=== PATIENT | female | born 1975 | race Caucasian/White ===

== ENCOUNTER 2019-11-17 10:01 | Emergency (ER) | payer OTHER, MEDICAID, SELFPAY ==
[2019-11-17 10:19] VITALS: BP 148/87; PULSE 103; RESP 20; TEMP 37.8; O2SAT 100
--- NOTE | 2019-11-17 10:35 | ED.URI ---
HPI - URI/Sore Throat General Chief Complaint: Upper Respiratory Infection Stated Complaint: glands swollen/nose Source: patient and RN notes reviewed Mode of arrival: ambulatory Limitations: no limitations History of Present Illness HPI Narrative: Patient is a 44-year-old female who presents complaining of sore throat, fever and generalized body aches for over a week. Patient reports seeing PCP on 11/09 and swab for strep throat. Patient reports antibiotics were called in at that time but PCP called in a penicillin and she is allergic. She reports a few days later she got a prescription for a Z-Patel, but did not take as she was feeling better at that time. Patient reports throat pain of 6/10. Patient denies using other [id number] medications for relief. MD elicited complaint: fever and sore throat Pertinent past history: immunosuppression Related Data Home Medications Medication Instructions Recorded Confirmed aspirin [Adult Low Dose Aspirin] 81 mg PO DAILY 11/17/19 11/17/19 hydrocodone-acetaminophen 1 tablet Q4-6H 11/17/19 11/17/19 levothyroxine 50 mcg DAILY 11/17/19 11/17/19 lorazepam 0.5 mg BID 11/17/19 11/17/19 melatonin 10 mg DAILY 11/17/19 11/17/19 Allergies Allergy/AdvReac Type Severity Reaction Status Date / Time Penicillins Allergy Rash Verified 11/17/19 10:18 Review of Systems Review of Systems: Narrative: CONSTITUTIONAL: Reports fever, chills, or sweats. EYES: Denies visual changes, redness, or discharge. ENT: Denies rhinorrhea, congestion, reports sore throat. CARDIOVASCULAR: Denies chest pain, palpitations, or edema. RESPIRATORY: Denies cough or dyspnea. GASTROINTESTINAL: Denies abdominal pain, nausea, vomiting, or diarrhea. GENITOURINARY: Denies dysuria or hematuria. SKIN: Denies rash or itching. MUSCULOSKELETAL: Denies back pain, joint pain, or myalgia. NEUROLOGIC: Denies headache, numbness, dizziness, or weakness. PSYCHIATRIC: Denies anxiety or depression. FOR[facility]LY [facility] Past Medical History Medical History (Updated 11/17/19 @ 10:43 by TIM Garza) Fibromyalgia Lupus Pulmonary embolism Rheumatoid arthritis Surgical History Surgical History (Updated 11/17/19 @ 10:39 by TIM Garza) No pertinent past surgical history Social History Social History (Updated 11/17/19 @ 10:39 by TIM Garza) Smoking status: Never smoker Alcohol intake: current Alcohol use details: Socially Substance use: never Living arrangements: with family Gender identity (if verbalized by the patient): Female Exam Narrative: Exam Narrative: GENERAL: Well-appearing, well-nourished, and in no acute distress. HEAD: Normocephalic, atraumatic. EYES: EOMI. No redness or drainage. Conjunctiva are normal. ENT: Mucous membranes pink and moist. Small amount of erythema without warmth, tenderness or edema to tip of nose. Nares clear. No rhinorrhea. TMs normal bilaterally. Throat erythema and edema. Uvula midline. NECK: AROM. Supple. Bilateral cervical lymphadenopathy. CHEST: No respiratory distress. Clear to auscultation. HEART: Regular rate and rhythm. No murmur appreciated. Normal peripheral pulses. EXTREMITIES: Normal range of motion. No edema. SKIN: Warm, dry, no rash. NEURO: No focal deficits. Alert and oriented x3. Gait steady. PSYCH: Normal affect. No signs of depression or anxiety. Course Vital Signs Vital signs: Vital Signs Temperature 37.8 C H 11/17/19 10:19 Pulse Rate 103 H 11/17/19 10:19 Respiratory Rate 11/17/19 10:19 Blood Pressure 148/87 H 11/17/19 10:19 Pulse Oximetry 100 11/17/19 10:19 Temperature 37.8 C H 11/17/19 10:19 Pulse Rate 103 H 11/17/19 10:19 Respiratory Rate 11/17/19 10:19 Blood Pressure 148/87 H 11/17/19 10:19 Pulse Oximetry 100 11/17/19 10:19 MDM - URI/Sore Throat MDM Narrative Medical decision making narrative: Patient has positive strep. She reports she has a Z-Patel at home that she has not st
== END 2019-11-17 10:48 | disposition home or self-care (01) ==
PROVIDERS: Emergency Provider Nurse Practitioner; PCP Family Medicine
DX: J02.0 Streptococcal pharyngitis (principal); M79.7 Fibromyalgia; Z86.711 Personal history of pulmonary embolism; M06.9 Rheumatoid arthritis, unspecified
CPT/HCPCS: 87880; 99212; G0463

== ENCOUNTER 2019-11-30 09:10 | Outpatient (CLI) | payer OTHER, MEDICAID, SELFPAY ==
[2019-11-30 13:52] LABS: Parathyroid Intact 55.3 pg/mL (7.5-53.5)
[2019-12-03 04:21] LABS: Ionized Calcium 4.9 mg/dL (4.8-5.6)
== END 2019-11-30 09:11 | disposition home or self-care (01) ==
PROVIDERS: PCP Family Medicine; Visit Provider Internal Medicine Endocrinology, Diabetes & Metabolism
DX: E21.3 Hyperparathyroidism, unspecified (principal)
CPT/HCPCS: 36415; 82306; 82330; 83970

== ENCOUNTER 2019-12-04 09:54 | Outpatient (CLI) | payer OTHER, MEDICAID, SELFPAY ==
[2019-12-04 11:10] LABS: D Dimer 0.27 ug/mL (<0.48)
== END 2019-12-04 09:55 | disposition home or self-care (01) ==
LOC: ANHLAB 09:55
PROVIDERS: PCP Family Medicine; Visit Provider Internal Medicine Hematology & Oncology
DX: D68.61 Antiphospholipid syndrome (principal)
CPT/HCPCS: 36415; 85380

== ENCOUNTER 2019-12-11 14:16 | Outpatient (CLI) | payer OTHER, MEDICAID, SELFPAY ==
[2019-12-11 17:06] LABS: Free T4 Free Thyroxine 1.02 ng/mL (0.78-2.19)
[2019-12-15 05:38] LABS: Triiodothyronine T3 Free 2.6 pg/mL (2.3-4.2)
== END 2019-12-11 14:17 | disposition home or self-care (01) ==
LOC: ANHWCLAB 14:18
PROVIDERS: PCP Family Medicine; Visit Provider Internal Medicine Endocrinology, Diabetes & Metabolism
DX: E03.9 Hypothyroidism, unspecified (principal); E04.9 Nontoxic goiter, unspecified; E21.3 Hyperparathyroidism, unspecified
CPT/HCPCS: 36415; 84439; 84443; 84481

== ENCOUNTER 2019-12-16 18:35 | Emergency (ER) | payer OTHER, MEDICAID, SELFPAY ==
[2019-12-16 18:51] VITALS: BP 137/80; PULSE 110; RESP 20; TEMP 37.9; O2SAT 100
--- NOTE | 2019-12-16 18:51 | ED.URI ---
HPI - URI/Sore Throat General Chief Complaint: Upper Respiratory Infection Stated Complaint: sore throat Time Seen by Provider: 12/16/19 18:51 Source: patient and RN notes reviewed History of Present Illness HPI Narrative: Patient is a 44-year-old female presents the urgent care with complaints of sore throat. Patient had strep throat recently back in November and was originally prescribed azithromycin from her PCP, in which she did not take until she was diagnosed again at the urgent care. Patient states she then developed shingles. Patient states her symptoms started 2 days ago. Denies any known fever or vomiting. States that she had one episode of nausea that was relieved with crackers and soda. No other acute complaints. No acute distress noted. Patient read the plan of care. Related Data Home Medications Medication Instructions Recorded Confirmed aspirin 81 mg tablet,delayed 81 mg PO DAILY 08/31/19 12/04/19 release lorazepam 0.5 mg tablet 0.5 mg PO DAILY PRN 08/31/19 12/04/19 ondansetron HCl 4 mg tablet 4 mg PO Q8H PRN 08/31/19 12/04/19 hydrocodone-acetaminophen 1 tablet Q4-6H 11/17/19 11/17/19 lorazepam 0.5 mg BID 11/17/19 11/17/19 melatonin 10 mg DAILY 11/17/19 11/17/19 Allergies Allergy/AdvReac Type Severity Reaction Status Date / Time metoclopramide Allergy Mild Unknown Verified 12/16/19 19:01 propoxyphene Allergy Mild Unknown Verified 12/16/19 19:01 tramadol Allergy Mild Unknown Verified 12/16/19 19:01 Penicillins Allergy Unknown Unknown Verified 12/16/19 19:01 Review of Systems Review of Systems: Narrative: CONSTITUTIONAL: Denies fever, chills, or sweats. EYES: Denies visual changes, redness, or discharge. ENT: Reports of sore throat CARDIOVASCULAR: Denies chest pain, palpitations, or edema. RESPIRATORY: Denies cough or dyspnea. GASTROINTESTINAL: Denies abdominal pain, nausea, vomiting, or diarrhea. GENITOURINARY: Denies dysuria or hematuria. SKIN: Denies rash or itching. MUSCULOSKELETAL: Denies back pain, joint pain, or myalgia. NEUROLOGIC: Denies headache, numbness, or weakness. All other systems reviewed are negative, except as documented in HPI. FOR[facility]LY [facility] Social History Social History (System 12/05/19 @ 09:56 by Alicia Zepeda) Smoking status: Never smoker Alcohol intake: current Substance use: never Gender identity (if verbalized by the patient): Female Comments At the time of my signature, I reviewed and agree with the nursing past medical, surgical, social, and family history. There is no relevant family history pertinent to the patient complaint. Exam Narrative: Exam Narrative: GENERAL: This is a well-nourished, well-developed patient, in no apparent distress. HEAD: normocephalic, atraumatic. EYES: PERRL. Sclera clear/white. Vision is grossly intact. EARS: External ears normal, auditory canals clear and without drainage, TMs normal without perforation. Hearing grossly intact. NOSE: External nose normal with no obvious nasal discharge, nares without redness, no rhinorrhea. THROAT: Mucous membranes moist, mild erythema noted posterior oropharynx without exudate or ulceration. Moderate postnasal drainage. NECK: Neck supple, mild tender mild left submandibular lymphadenopathy CARDIOVASCULAR: Regular rate and rhythm without murmurs, gallops, or rubs. RESPIRATORY: Clear to auscultation. Breath sounds equal bilaterally. No wheezes, rales, or rhonchi. SKIN: Scab/healing area of past shingles noted to the tip of the right nare. Warm, intact with no suspicious lesions or rash, good texture and turgor. NEURO: awake, alert, and oriented to person, place and time. There were no obvious focal neurologic abnormalities. EXTREMITIES: No clubbing, cyanosis, or edema. Course Vital Signs Vital signs: Vital Signs Temperature 100.3 F H 12/16/19 18:51 Pulse Rate 110 H 12/16/19 18:51 Respiratory Rate 20 12/16/19 18:51 Blood Pressure 137/80 12/16/19 18:51 Pulse Oximetry 100 12/16/19
== END 2019-12-16 19:11 | disposition home or self-care (01) ==
PROVIDERS: Emergency Provider Nurse Practitioner Family; PCP Family Medicine
DX: J02.9 Acute pharyngitis, unspecified (principal)
CPT/HCPCS: 87081; 87880; 99213; G0463

== ENCOUNTER 2020-03-06 16:06 | Outpatient (CLI) | payer OTHER, MEDICAID, SELFPAY ==
[2020-03-06 16:43] LABS: Hematocrit 38.2 % (37.0-47.0); Hemoglobin 12.9 g/dL (12.0-15.0); Mean Corpuscular HGB Conc 33.8 g/dl (32-36); Mean Corpuscular Hemoglobin 27.6 pg (26-34); Mean Corpuscular Volume 81.8 fl (80-100); Mean Platelet Volume 10.6 fl (7.4-10.4); Platelet Count Result 171 k/mm3 (150-375); Red Blood Count 4.67 M/mm3 (4.2-5.4); Red Cell Distribution Width 12.2 % (11.5-14.5); White Blood Count 6.6 K/mm3 (4.5-10.0)
[2020-03-06 16:57] LABS: Alanine Aminotransferase 12 U/L (4-35); Albumin Level 4.5 g/dL (3.5-5.1); Alkaline Phosphatase 74 U/L (38-126); Amylase 93 U/L (30-110); Aspartate Amino Transferase 19 U/L (14-36); Bilirubin,Total 0.3 mg/dL (0.2-1.3)
== END 2020-03-06 16:07 | disposition home or self-care (01) ==
PROVIDERS: PCP Family Medicine; Referring Provider Family Medicine; Visit Provider Internal Medicine Gastroenterology
DX: R10.11 Right upper quadrant pain (principal)
CPT/HCPCS: 36415; 80076; 82150; 85027

== ENCOUNTER 2021-02-12 14:52 | Outpatient (CLI) | payer OTHER, MEDICAID, SELFPAY ==
--- NOTE | ~2021-02-12 | XR_ITS ---
EXAMINATION: XR cervical spine 4-5V DATE: 02/12/2021 15:17 INDICATION: Posterior neck pain. Fibromyalgia. TECHNIQUE: 4 views of cervical spine were obtained. COMPARISON: None. FINDINGS: There is 3 degrees levocurvature of cervicothoracic spine. Vertebral body heights and inter vertebral disc heights are normal. The facet joints are unremarkable. No central canal stenosis or pr evertebral soft tissue swelling. There are surgical clips in the neck. IMPRESSION: 1. No etiology for the patient's symptoms. Reviewed, dictated and finalized at location A.
== END 2021-02-12 14:53 | disposition home or self-care (01) ==
LOC: ANHIMG 14:59
PROVIDERS: PCP Family Medicine; Visit Provider Nurse Practitioner
DX: M54.2 Cervicalgia (principal)
CPT/HCPCS: 72050

== ENCOUNTER 2021-03-03 09:40 | Outpatient (RCR) | payer OTHER, MEDICAID, SELFPAY ==
--- NOTE | 2021-03-03 11:57 | PTOPEVAL ---
Thank you for referring Kandace Ybarra to [facility].? The patient is scheduled to be seen for therapy? 1 x/week for 5 weeks. Please review, sign, date and return this plan of care MORGAN. I agree with and certify that the following plan of care is medically necessary. Referring Physician Date Attending Provider: Prakash Velasquez MD Diagnosis RA Onset 2006 Additional Evaluation Detail Pt reports she had a fall over the weekend catching herself with the right UE. Subjective Information She reports she has arm and Query Text:As Reported By Patient/ leg numbness with all Family activities. She has numbness with prolonged sitting in the car unless she is sitting on a gel cushion. She is limited to sitting in the car less than 1 hour due to UE/LE numbness. She also c/o intermittent dizziness with activities. She also c/o neck pain with all activities. 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 She is able to cook a small meal if less than 30 min due to pain and fatigue. She is unable to work due to pain. She does not lift objects due to pain and limitations. She takes an epson salt bath to loosen up. She is unable to tolerate stretches due to pain . She uses heat and medication to help with pain. Diagnostic Tests X-Rays For This Problem Yes: neck, no impairment Pain Assessment Self Report Pain Assessment Generalized Reported Pain Level 8 Pain Description Aching,Numbness,Sharp,Soreness ,Tightness Pain Frequency Chronic,Continuous Lowest Pain Intensity 5 Greatest Pain Intensity 10 Pain Aggravating Factors ADL's,Bending,Inspiration, Prolonged Position,Walking, Weight Bearing/Standing Pain Behaviors Anxious Pain Score Pain Score 8: Self Report Cervical and Lumbar ROM Lumbar ROM Lumbar Flexion Active Ankle Query Text:Hands to: Lateral Flexion distal thigh Query Text:Active Hands to: Lumbar Comments
--- NOTE | 2021-03-13 12:53 | PCPTNOTE ---
Patient called & cancelled all scheduled appointment this date stating MD would like patient to stop PT at this time. Notified therapist.
--- NOTE | 2021-03-28 08:35 | PCPTNOTE ---
Admitting Provider: Attending Provider: Prakash Velasquez MD Patient:Kandace Ybarra Date of :1975 Discharge Note Patient has not returned for any further treatments since 03/03/2021 per doctor request. Therefore she will be discharged at this time. Patient?s initial visit was on 03/03/2021 for a total of 1 visits. The goals have been not met at this time. Thank you for referring this patient to [facility]. Please review, sign, date and return this discharge summary MORGAN. I have been updated about the patient's current status and I agree with discharge from the above service at this time. Referring Physician Date
== END 2021-03-31 08:51 | disposition home or self-care (01) ==
LOC: ANHPT 09:40
PROVIDERS: PCP Family Medicine; Visit Provider Family Medicine
DX: M79.7 Fibromyalgia (principal)
CPT/HCPCS: 97110; 97163

== ENCOUNTER 2021-03-03 11:21 | Emergency (ER) | payer OTHER, MEDICAID, SELFPAY ==
--- NOTE | ~2021-03-03 | XR_ITS ---
EXAMINATION: XR forearm RT 2V, XR wrist RT w scaphoid DATE: 03/03/2021 11:55 INDICATION: Pain and bruising at the right wrist and distal forearm post fall TECHNIQUE: 1. AP an lateral views of the left forearm were obtained. 2. Dorsal palmar, lateral, oblique and navicular views of the right wrist were obtained. COMPARISON: none FINDINGS: Bone alignment is normal from the right elbow through the wrist and visualized hand. No fracture. Min imal to mild osteoarthritis at the midcarpal, triscaphe and first carpometacarpal joints. Soft tissue s are unremarkable. No right elbow joint effusion. IMPRESSION: 1. 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 No acute osseous abnormality at the right wris t or forearm. Reviewed, dictated and finalized at location A. IMPRESSION: 1. 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 No acute osseous abnorma lity at the right wrist or forearm.
[2021-03-03 11:30] VITALS: BP 144/93; PULSE 93; RESP 16; TEMP 37.1; O2SAT 100
--- NOTE | 2021-03-03 11:33 | ED.UPPEXIN ---
HPI - Extremity Injury (Upper) General Chief Complaint: Extremity Injury, Upper Stated Complaint: Right Arm Pain Time Seen by Provider: 03/03/21 11:33 Source: patient and RN notes reviewed Mode of arrival: ambulatory Limitations: no limitations History of Present Illness HPI narrative: 45-year-old female presents to the [facility] with complaints of right Wrist pain that radiates to the shoulder, elbow and fingers. States that she fell yesterday landing on her wrist. Patient reports that she frequently has numbness in the leg and it gives out and she falls. Bruise noted to the right arm volar/ulnar distal aspect. Has full range of motion. No snuffbox tenderness. Sensation intact in all 5 fingers. Capillary refill under 2 seconds in all 5 fingers. 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 Related Data Home Medications Medication Instructions Recorded Confirmed lorazepam 0.5 mg tablet 0.5 mg PO BID PRN 08/31/19 03/03/21 hydrocodone-acetaminophen 1 tablet PO QID PRN 11/17/19 03/03/21 melatonin 10 mg DAILY 11/17/19 03/03/21 zolpidem 5 mg tablet 5 mg PO HS PRN 12/05/20 03/03/21 aspirin 81 mg PO DAILY 03/03/21 03/03/21 simvastatin 10 mg PO DAILY 03/03/21 03/03/21 Allergies Allergy/AdvReac Type Severity Reaction Status Date / Time metoclopramide Allergy Mild Anxiety Verified 03/03/21 11:41 propoxyphene Allergy Mild Unknown Verified 03/03/21 11:41 tramadol Allergy Mild Unknown Verified 03/03/21 11:41 Penicillins Allergy Unknown Rash Verified 03/03/21 11:41 Review of Systems Review of Systems: All systems reviewed & are unremarkable except as noted in HPI and below Constitutional: Constitutional: Reports no additional constitutional complaints Eyes: Eyes: Reports no additional eye complaints ENT: Reports system reviewed and no additional complaints, except as documented Cardiovascular: Cardiovascular: Reports no additional cardiovascular complaints and Denies chest pain Respiratory: Respiratory: Reports no additional respiratory complaints, Denies cough, Denies dyspnea and Denies wheezing Musculoskeletal: Musculoskeletal: Reports arthralgias (Right wrist) and Reports joint swelling (Right breast) Integumentary/Breasts: Comments: Bruising volar aspect distal right arm Neurologic: Reports system reviewed and no additional complaints, except as documented, Denies dizziness, Denies syncope, Denies headache(s), Denies focal weakness and Denies numbness Psychiatric: Psychiatric: Reports no additional psychiatric complaints PMFSH Past Medical History Medical History PAOLA positive Anxiety Arthritis Back pain Blood disorder Blood transfusion as the cause of abnormal reaction of patient, or of later complication, without misadventure at the time of procedure Encounter for screening for other viral diseases Hepatitis C antibody positive in blood Lupus Migraines Pulmonary embolism Pulmonary embolism and infarction, iatrogenic Rheumatoid arthritis Thyroid disease Surgical History Surgical History H/O thyroidectomy History of cholecystectomy No pertinent past surgical history Family History Family History Other ADD (attention deficit disorder) Anxiety Arthritis COPD (chronic obstructive pulmonary disease) Cerebrovascular accident Hypercalcemia Hypertension Migraines Seizure disorder Shortness of breath Social History Social History Smoking status: Never smoker Alcohol intake: current Substance use: never Gender identity (if verbalized by the patient): Female Exam Const: General: healthy appearing, no acute distress and alert Nutritional Appearance: well nourished Orientation/consciousness: patient oriented x3 Limitations: no limitations HENMT: Head: normal to inspection Chest: Chest palpation & inspection: normal
== END 2021-03-03 12:29 | disposition home or self-care (01) ==
PROVIDERS: Emergency Provider Nurse Practitioner; PCP Family Medicine
DX: S60.211A Contusion of right wrist, initial encounter (principal); W19.XXXA Unspecified fall, initial encounter; F41.9 Anxiety disorder, unspecified; M19.90 Unspecified osteoarthritis, unspecified site; Z86.711 Personal history of pulmonary embolism; M06.9 Rheumatoid arthritis, unspecified; E89.0 Postprocedural hypothyroidism; Z79.82 Long term (current) use of aspirin
CPT/HCPCS: 73090; 73110; 99213; G0463

== ENCOUNTER 2021-06-19 13:14 | Outpatient (CLI) | payer OTHER, MEDICAID, SELFPAY ==
--- NOTE | ~2021-06-19 | US_ITS ---
EXAMINATION: US venous doppler LE RT DATE: 06/19/2021 13:42 INDICATION: Right lower limb pain and swelling TECHNIQUE: Elam scale images without and with compression and Doppler images of the right lower extre mity veins were obtained. COMPARISON: None FINDINGS: The right common femoral vein, profunda femoral vein, femoral vein, popliteal vein, peronea l trunk, posterior tibial veins, and greater saphenous vein are patent. IMPRESSION: 1. Patent right lower extremity veins. No evidence of deep venous thrombosis. Reviewed, dictated and finalized at location B.
== END 2021-06-19 13:15 | disposition home or self-care (01) ==
LOC: ANHIMG 13:16
PROVIDERS: PCP Family Medicine; Visit Provider Internal Medicine Hematology & Oncology
DX: M79.89 Other specified soft tissue disorders (principal)
CPT/HCPCS: 93971

== ENCOUNTER 2021-08-13 18:09 | Outpatient (CLI) | payer OTHER, MEDICAID, SELFPAY ==
--- NOTE | ~2021-08-13 | XR_ITS ---
XR lumbar spine min 4V DATE: 08/13/2021 18:44 INDICATION: Lower back pain radiating down right leg for 6 months. No known injury. TECHNIQUE: AP, lateral, bilateral oblique views and coned lateral lumbosacral views COMPARISON: 08/30/2008 lumbar spine FINDINGS: There is minimal degenerative spurring of the lumbar spine. Lumbar and lumbosacral interspa steven are well preserved. No fracture or bone destruction, spondylolysis or spondylolisthesis. The lumbar pedicles are intact. The sacroiliac joints appear normal. Status post cholecystectomy. IMPRESSION: Minimal degenerative spurring of the lumbar spine Reviewed, dictated and finalized at location A.
== END 2021-08-13 18:10 | disposition home or self-care (01) ==
PROVIDERS: PCP Family Medicine
DX: M54.9 Dorsalgia, unspecified (principal)
CPT/HCPCS: 72110

== ENCOUNTER 2022-01-09 14:47 | Outpatient (CLI) | payer OTHER, MEDICAID, SELFPAY ==
--- NOTE | ~2022-01-09 | CT_ITS ---
EXAMINATION: CT abdomen wo con EXAM DATE: 01/09/2022 15:13 INDICATION: RUQ abdominal pain. TECHNIQUE: Spiral CT of the abdomen was performed without contrast. Axial, coronal and sagittal cristian ges of the abdomen were reviewed. The dose-length product (DLP) for this examination was 264.17 mGy- cm. The exposure was tailored according to patient size (auto mA exposure control), and iterative re construction (ASIR) was used as additional dose reduction technique. There is no prior study for lloyd francisco. FINDINGS: The liver, spleen, adrenal glands and pancreas are unremarkable. There are cholecystectomy clips. There is no nephrolithiasis or hydronephrosis. There is no retroperitoneal lymphadenopath y. The stomach and small bowel are unremarkable. There is expected amount of colonic stool. No f ree intraperitoneal gas. The heart is normal in size. There are no pericardial or pleural effusion s. The lung bases are unremarkable. There are no osteoblastic or osteolytic lesions identified. IMPRESSION: No acute intra-abdominal findings. Reviewed, dictated and finalized at location B.
== END 2022-01-09 14:48 | disposition home or self-care (01) ==
LOC: ANHIMG 14:49
PROVIDERS: PCP Family Medicine; Visit Provider Nurse Practitioner Adult Health
DX: R10.11 Right upper quadrant pain (principal)
CPT/HCPCS: 74150

== ENCOUNTER 2022-03-02 11:37 | Outpatient (CLI) | payer OTHER, MEDICAID, SELFPAY ==
[2022-03-02 12:01] LABS: Hematocrit 38.1 % (37.0-47.0); Hemoglobin 12.6 g/dL (12.0-15.0); Mean Corpuscular HGB Conc 33.1 g/dl (32-36); Mean Corpuscular Hemoglobin 27.6 pg (26-34); Mean Corpuscular Volume 83.6 fl (80-100); Mean Platelet Volume 10.2 fl (7.4-10.4); Platelet Count Result 173 k/mm3 (150-375); Red Blood Count 4.56 M/mm3 (4.2-5.4); Red Cell Distribution Width 12.3 % (11.5-14.5); White Blood Count 5.5 K/mm3 (4.5-10.0)
[2022-03-02 12:05] LABS: Blood Urea Nitrogen 16 mg/dL (8-26); Carbon Dioxide 24 mmol/L (22-30); Chloride 106 mmol/L (98-109); Estimated Glomerular Filt Rate > 60; Glucose 109 mg/dL (70-105); Ionized Calcium (POC) 1.21 mmol/L (1.11-1.31); Potassium 3.9 mmol/L (3.5-4.9); Sodium 140 mmol/L (138-146)
[2022-03-02 12:39] LABS: Iron 49 ug/dL (37-170)
[2022-03-02 12:48] LABS: Percent Iron Saturation 13 % (20-50)
== END 2022-03-02 11:38 | disposition home or self-care (01) ==
PROVIDERS: PCP Family Medicine; Visit Provider Internal Medicine Hematology & Oncology
DX: D50.9 Iron deficiency anemia, unspecified (principal)
CPT/HCPCS: 36415; 80047; 82728; 83540; 83550; 85027

== ENCOUNTER 2022-03-03 15:20 | Outpatient (CLI) | payer OTHER, MEDICAID, SELFPAY ==
[2022-03-03 16:54] LABS: Free T4 Free Thyroxine 1.21 ng/mL (0.78-2.19); Vitamin D 25 Hydroxy 45.5 ng/mL
== END 2022-03-03 15:21 | disposition home or self-care (01) ==
LOC: ANHWCLAB 15:22
PROVIDERS: PCP Family Medicine; Visit Provider Internal Medicine Endocrinology, Diabetes & Metabolism
DX: E03.9 Hypothyroidism, unspecified (principal); R79.89 Other specified abnormal findings of blood chemistry
CPT/HCPCS: 36415; 82306; 84439; 84443

== ENCOUNTER → 2022-03-10 14:18 | Outpatient (CLI) | payer OTHER, MEDICAID, SELFPAY ==
--- NOTE | ~2022-03-10 | CT_ITS ---
EXAMINATION: CT cervical spine wo con DATE: 03/10/2022 14:41 INDICATION: Neck pain. Numbness and tingling in the arms and legs. Fibromyalgia. TECHNIQUE: Computed tomography (CT) of the cervical spine was performed without intravenous contrast. Automated exposure control and iterative reconstruction technique were employed. The dose-length pro duct was 238.04 mGy-cm. COMPARISON: Cervical spine radiographs 02/12/2021 FINDINGS: There is kyphosis of lower cervical spine. There is 6 degrees levocurvature of cervical spi ne. Vertebral body heights are normal. There is mildly decreased disc height at C5-C6 and C6-C7. The following disc levels are specifically discussed: C2-C3: There is no uncovertebral joint osteoarthritis. There is mild bilateral facet joint osteoarthr itis. There is no neural foraminal stenosis. There is no central canal stenosis. C3-C4: There is mild bilateral uncovertebral joint osteoarthritis. There is mild right and moderate l eft facet joint osteoarthritis. There is mild left neural foraminal stenosis. There is mild central c anal stenosis. C4-C5: There is no uncovertebral joint osteoarthritis. There is no facet joint osteoarthritis. There is no neural foraminal stenosis. There is no central canal stenosis. C5-C6: There is no uncovertebral joint osteoarthritis. There is no facet joint osteoarthritis. There is no neural foraminal stenosis. There is no central canal stenosis. C6-C7: There is mild right and moderate left uncovertebral joint osteoarthritis. There is mild left f acet joint osteoarthritis. There is no neural foraminal stenosis. There is mild central canal stenosi s. C7-T1: There is no uncovertebral joint osteoarthritis. There is mild bilateral facet joint osteoarthr itis. There is no neural foraminal stenosis. There is no central canal stenosis. IMPRESSION: 1. Mild cervical spondylosis. Reviewed, dictated and finalized at location A.
--- NOTE | ~2022-03-10 | CT_ITS ---
EXAMINATION: CT lumbar spine wo con DATE: 03/10/2022 14:41 INDICATION: Low back pain. Fibromyalgia. TECHNIQUE: Computed tomography (CT) of the lumbar spine was performed without intravenous contrast. A utomated exposure control and iterative reconstruction technique were employed. The dose-length produ ct was 741.63 mGy-cm. COMPARISON: None FINDINGS: There is 6 degrees levocurvature of lumbar spine. Vertebral body heights are normal. There is mildly decreased disc height at L3-L4 and L4-L5. The following disc levels are specifically discus sed: L1-L2: The disc does not extend beyond the endplate margin. There is mild bilateral facet joint osteo arthritis. There is no neural foraminal stenosis. There is no central canal stenosis. L2-L3: The disc is mildly bulging. There is moderate right and mild left facet joint osteoarthritis. There is mild bilateral neural foraminal stenosis. There is no central canal stenosis. L3-L4: The disc is bulging. There is moderate right and mild left facet joint osteoarthritis. There i s mild bilateral neural foraminal stenosis. There is mild central canal stenosis. L4-L5: The disc is bulging. There is mild bilateral facet joint osteoarthritis. There is mild bilater al neural foraminal stenosis. There is mild central canal stenosis. L5-S1: The disc does not extend beyond the endplate margin. There is moderate bilateral facet joint o steoarthritis. There is no neural foraminal stenosis. There is no central canal stenosis. IMPRESSION: 1. Mild lumbar spondylosis. Reviewed, dictated and finalized at location A. IMPRESSION: 1. Mild lumbar spondylosis.
== END ==
PROVIDERS: PCP Nurse Practitioner Adult Health; Visit Provider Nurse Practitioner Adult Health
DX: M79.7 Fibromyalgia (principal); M47.896 Other spondylosis, lumbar region; M47.892 Other spondylosis, cervical region
CPT/HCPCS: 72125; 72131

== ENCOUNTER 2023-08-18 10:22 | Emergency (ER) | payer OTHER, MEDICAID, SELFPAY ==
--- NOTE | ~2023-08-18 | XR_ITS ---
EXAMINATION: XR shoulder LT min 2V INDICATION: Left shoulder pain after fall TECHNIQUE: Four views of the left shoulder are submitted. COMPARISON: None FINDINGS: Normal alignment. No fracture. Glenohumeral and acromioclavicular joint spaces are normal. Surgical clips in the left neck may reflect left hemithyroidectomy. A bone island is noted in the hum eral head. IMPRESSION: 1. No acute osseous abnormality. Reviewed, dictated and finalized at location B. 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
--- NOTE | 2023-08-18 10:35 | ED.UPPEXIN ---
HPI - Extremity Injury (Upper) General Chief Complaint: Extremity Injury, Upper Stated Complaint: fall, lt arm injury Time Seen by Provider: 08/18/23 10:35 Source: patient Mode of arrival: ambulatory Limitations: no limitations History of Present Illness HPI narrative: Kandace is a 48-year-old female patient presenting to the clinic today with complaints of left shoulder pain/injury after falling. She reports she fell when trying to sit down into a chair and hit her shoulder on the armrest of the chair. She has also reported off and on pain to the lateral elbow. States that this pain in the lateral elbow has been going off and on and is having numbness and sharp pain going down her arm. She denies any neck injury or hitting her head. She denies any loss of consciousness. Related Data Home Medications Medication Instructions Recorded Confirmed lorazepam 0.5 mg tablet (Ativan) 0.5 mg PO BID PRN Anxiety 08/31/19 08/18/23 hydrocodone 7.5 mg-acetaminophen 1 tablet PO QID PRN Pain 11/17/19 08/18/23 325 mg tablet aspirin 81 mg tablet 81 mg PO DAILY 03/03/21 08/18/23 duloxetine 20 mg capsule,delayed 20 mg PO DAILY 03/03/22 08/18/23 release (Cymbalta) ondansetron HCl 4 mg tablet 4 mg PO Q6H 03/03/22 08/18/23 metoprolol succinate 25 mg 25 mg PO DIRECTED 08/18/23 08/18/23 tablet,extended release 24 hr Allergies Allergy/AdvReac Type Severity Reaction Status Date / Time metoclopramide Allergy Mild Anxiety Verified 03/03/22 14:41 propoxyphene Allergy Mild Unknown Verified 03/03/22 14:41 tramadol Allergy Mild Unknown Verified 03/03/22 14:41 Penicillins Allergy Unknown Rash Verified 03/03/22 14:41 Review of Systems Review of Systems: Pertinent positives per HPI. Patient denies any fever, chills, rash, headache, visual changes, dizziness, cough, runny nose, sore throat, shortness of breath, chest pain, palpitations, nausea, vomiting, diarrhea, constipation, abdominal pain, or any urinary issues. REPLACED BY [facility] Past Medical History Medical History PAOLA positive Anxiety Arthritis Back pain Blood disorder Blood transfusion as the cause of abnormal reaction of patient, or of later complication, without misadventure at the time of procedure Encounter for screening for other viral diseases Hepatitis C antibody positive in blood Lupus Migraines Pulmonary embolism Pulmonary embolism and infarction, iatrogenic Rheumatoid arthritis Thyroid disease Surgical History Surgical History H/O thyroidectomy History of cholecystectomy No pertinent past surgical history Family History Family History Other ADD (attention deficit disorder) Anxiety Arthritis COPD (chronic obstructive pulmonary disease) Cerebrovascular accident Hypercalcemia Hypertension Migraines Seizure disorder Shortness of breath Social History Social History Smoking status: Never smoker Alcohol intake: current Alcohol use details: Socially Substance use: never Living arrangements: with family Gender identity (if verbalized by the patient): Female Comments At the time of my signature, I reviewed and agree with the nursing past medical, surgical, social, and family history. There is no relevant family history pertinent to the patient complaint. Exam Narrative: General: Well-developed, well nourished, in no apparent distress Head: Normocephalic, atraumatic. Cardio: Regular rate and rhythm, s1 and s2 normal, no murmur appreciated. Resp: Clear to auscultation bilaterally, no rhonchi, rales, wheezing or rubs. Musculoskeletal: No deformity, tender to palpation over the lateral epicondyle and the posterior shoulder, grossly normal range of motion, positive Tinel's over the lateral epicondyle, muscle strength
[2023-08-18 10:39] VITALS: BP 154/90; PULSE 105; RESP 16; TEMP 36.4; O2SAT 100
== END 2023-08-18 11:27 | disposition home or self-care (01) ==
PROVIDERS: Emergency Provider Nurse Practitioner Family; PCP Family Medicine
DX: M77.12 Lateral epicondylitis, left elbow (principal); S40.012A Contusion of left shoulder, initial encounter; W19.XXXA Unspecified fall, initial encounter; Z79.82 Long term (current) use of aspirin; F41.9 Anxiety disorder, unspecified; M19.90 Unspecified osteoarthritis, unspecified site; Z86.711 Personal history of pulmonary embolism; M06.9 Rheumatoid arthritis, unspecified; E07.9 Disorder of thyroid, unspecified; M32.9 Systemic lupus erythematosus, unspecified
CPT/HCPCS: 73030; 99213; G0463

== ENCOUNTER 2023-08-31 12:19 | Outpatient (CLI) | payer OTHER, MEDICAID, SELFPAY ==
[2023-08-31 12:42] LABS: Basophils Percent Auto 0.8 % (0.2-1.2); Eosinophils Absolute Auto 0.1 K/mm3 (0-0.3); Eosinophils Percent Auto 2.5 % (0-4.4); Hematocrit 36.3 % (37.0-47.0); Hemoglobin 11.9 g/dL (12.0-15.0); Immature Granulocyte Absolute 0.01 K/mm3 (0.00-0.031); Immature Granulocyte Percent A 0.2 % (0-0.5); Lymphocytes Absolute Auto 1.29 K/mm3 (0.9-3.2); Lymphocytes Percent Auto 24.4 % (18.3-44.2); Mean Corpuscular HGB Conc 32.8 g/dl (32-36); Mean Corpuscular Hemoglobin 26.6 pg (26-34); Mean Platelet Volume 9.2 fl (7.4-10.4); Monocytes Absolute Auto 0.4 K/mm3 (0.1-0.6); Monocytes Percent Auto 7.6 % (2.6-8.5); Neutrophils Absolute Auto 3.4 K/mm3 (1.3-6.7); Neutrophils Percent Auto 64.5 % (45.5-73.1); Platelet Count Result 174 k/mm3 (150-375); Red Blood Count 4.48 M/mm3 (4.2-5.4); Red Cell Distribution Width 12.9 % (11.5-14.5); White Blood Count 5.3 K/mm3 (4.5-10.0)
[2023-08-31 17:07] LABS: Alanine Aminotransferase 14 U/L (6-35); Albumin Level 4.2 g/dL (3.5-5.1); Alkaline Phosphatase 59 U/L (38-126); Anion Gap 9 mmol/L (8-16); Aspartate Amino Transferase 19 U/L (14-36); Bilirubin,Total 0.4 mg/dL (0.2-1.3); Blood Urea Nitrogen 20 mg/dL (7-17); Carbon Dioxide 24 mmol/L (22-30); Chloride 105 mmol/L (98-107); Estimated Glomerular Filt Rate > 60; Glucose 91 mg/dL (65-110); Partial Thromboplastin Time 37.9 SECONDS (22.3-36.8); Potassium 4.2 mmol/L (3.4-5.0); Prothrombin Time 13.2 Seconds (11.1-14.7); Sodium 138 mmol/L (137-145)
== END 2023-08-31 12:20 | disposition home or self-care (01) ==
PROVIDERS: PCP Family Medicine; Visit Provider Internal Medicine Hematology & Oncology
DX: D50.9 Iron deficiency anemia, unspecified (principal)
CPT/HCPCS: 36415; 80053; 85025; 85610; 85730

== ENCOUNTER 2023-10-22 13:56 | Emergency (ER) | payer OTHER, MEDICAID, SELFPAY ==
--- NOTE | ~2023-10-22 | XR_ITS ---
XR chest 2V DATE: 10/22/2023 14:30 INDICATION: Productive cough, congestion, fever TECHNIQUE: 2 views COMPARISON: None FINDINGS: Normal heart size. No hilar or mediastinal enlargement. No pulmonary infiltrate or consol idation, pulmonary vascular congestion or pleural effusion or pneumothorax. Surgical clips, right upper quadrant, likely due to cholecystectomy. IMPRESSION: No active cardiopulmonary disease Status post cholecystectomy Reviewed, dictated and finalized at location B. 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
[2023-10-22 14:07] VITALS: BP 175/105; PULSE 130; RESP 16; TEMP 36.9; O2SAT 100
--- NOTE | 2023-10-22 14:07 | ED.URI ---
HPI - URI/Sore Throat General Chief Complaint: Upper Respiratory Infection Stated Complaint: Sinus Infection, Bloody Phlegm, Earache, Neck Pain Time Seen by Provider: 10/22/23 14:07 Source: patient, RN notes reviewed and old records reviewed Mode of arrival: ambulatory Limitations: no limitations History of Present Illness HPI Narrative: 48-year-old female presents to the [facility] with complaints of sinus congestion, right ear pain, cough and chest congestion for 4 days. Has not taken any cold medication Has a history of chronic pain. Reports neck and right pain, being treated outpatient. Onset (ago): day(s) (3-4) Related Data Home Medications Medication Instructions Recorded Confirmed lorazepam 0.5 mg tablet (Ativan) 0.5 mg PO BID PRN Anxiety 08/31/19 10/22/23 hydrocodone 7.5 mg-acetaminophen 1 tablet PO QID PRN Pain 11/17/19 10/22/23 325 mg tablet aspirin 81 mg tablet 81 mg PO DAILY 03/03/21 10/22/23 duloxetine 20 mg capsule,delayed 20 mg PO DAILY 03/03/22 10/22/23 release (Cymbalta) ondansetron HCl 4 mg tablet 4 mg PO Q6H 03/03/22 10/22/23 metoprolol succinate 25 mg 25 mg PO DIRECTED 08/18/23 10/22/23 tablet,extended release 24 hr gabapentin 300 mg capsule 300 mg PO BID 10/22/23 10/22/23 Allergies Allergy/AdvReac Type Severity Reaction Status Date / Time metoclopramide AdvReac Mild Anxiety Verified 10/22/23 14:06 Penicillins AdvReac Mild Rash Verified 10/22/23 14:06 propoxyphene AdvReac Mild Unknown Verified 10/22/23 14:06 tramadol AdvReac Mild Unknown Verified 10/22/23 14:06 Review of Systems Review of Systems: All systems reviewed & are unremarkable except as noted in HPI and below Constitutional: Constitutional: Reports no additional constitutional complaints Eyes: Eyes: Reports no additional eye complaints ENT: Reports as per HPI, Reports otalgia and Reports nasal congestion Cardiovascular: Cardiovascular: Reports no additional cardiovascular complaints, Denies chest pain and Denies dyspnea Respiratory: Respiratory: Reports as per HPI, Reports chest congestion, Denies cough and Denies dyspnea Gastrointestinal: Gastrointestinal: Reports no additional gastrointestinal complaints, Denies abdominal pain, Denies nausea and Denies vomiting Musculoskeletal: Musculoskeletal: Reports no additional musculoskeletal complaints Integumentary/Breasts: Skin/Breast: Reports system reviewed and no additional complaints, except as docu Neurologic: Reports system reviewed and no additional complaints, except as documented Psychiatric: Psychiatric: Reports no additional psychiatric complaints Allergic/Immunologic: Allergic/Immunologic: Reports no additional allergic/immunologic complaints PMFSH Past Medical History Medical History PAOLA positive Anxiety Arthritis Back pain Blood disorder Blood transfusion as the cause of abnormal reaction of patient, or of later complication, without misadventure at the time of procedure Encounter for screening for other viral diseases Hepatitis C antibody positive in blood Lupus Migraines Pulmonary embolism Pulmonary embolism and infarction, iatrogenic Rheumatoid arthritis Thyroid disease Surgical History Surgical History H/O thyroidectomy History of cholecystectomy No pertinent past surgical history Family History Family History Other ADD (attention deficit disorder) Anxiety Arthritis COPD (chronic obstructive pulmonary disease) Cerebrovascular accident Hypercalcemia Hypertension Migraines Seizure disorder Shortness of breath Social History Social History Smoking status: Never smoker Alcohol intake: current Alcohol use details: Socially Substance use: never Living arrangements: with family Gender identity (if verbal
[2023-10-22 14:10] VITALS: BP 175/105; PULSE 130; RESP 16; TEMP 36.9; O2SAT 100
== END 2023-10-22 14:55 | disposition home or self-care (01) ==
PROVIDERS: Emergency Provider Nurse Practitioner; PCP Family Medicine
DX: J06.9 Acute upper respiratory infection, unspecified (principal); Z79.899 Other long term (current) drug therapy; Z79.82 Long term (current) use of aspirin; Z79.891 Long term (current) use of opiate analgesic; Z20.822 Contact with and (suspected) exposure to COVID-19
CPT/HCPCS: 71046; 87081; 87426; 87804; 87880; 99213; G0463

== ENCOUNTER 2024-06-29 09:58 | Outpatient (CLI) | payer OTHER, MEDICAID, SELFPAY ==
[2024-06-29 10:20] LABS: Basophils Absolute Auto 0.1 K/mm3 (0.0-0.1); Basophils Percent Auto 0.8 % (0.2-1.2); Eosinophils Absolute Auto 0.1 K/mm3 (0-0.3); Eosinophils Percent Auto 2.2 % (0-4.4); Hematocrit 35.7 % (37.0-47.0); Hemoglobin 11.6 g/dL (12.0-15.0); Immature Granulocyte Absolute 0.02 K/mm3 (0.00-0.031); Immature Granulocyte Percent A 0.3 % (0-0.5); Lymphocytes Absolute Auto 1.17 K/mm3 (0.9-3.2); Lymphocytes Percent Auto 19.7 % (18.3-44.2); Mean Corpuscular HGB Conc 32.5 g/dl (32-36); Mean Corpuscular Hemoglobin 26.7 pg (26-34); Mean Corpuscular Volume 82.1 fl (80-100); Mean Platelet Volume 9.9 fl (7.4-10.4); Monocytes Absolute Auto 0.4 K/mm3 (0.1-0.6); Monocytes Percent Auto 6.6 % (2.6-8.5); Neutrophils Absolute Auto 4.2 K/mm3 (1.3-6.7); Neutrophils Percent Auto 70.4 % (45.5-73.1); Platelet Count Result 179 k/mm3 (150-375); Red Blood Count 4.35 M/mm3 (4.2-5.4); Red Cell Distribution Width 12.9 % (11.5-14.5)
[2024-06-29 13:42] LABS: Alanine Aminotransferase 21 U/L (6-35); Albumin Level 4.1 g/dL (3.5-5.1); Alkaline Phosphatase 68 U/L (38-126); Anion Gap 9 mmol/L (4-12); Aspartate Amino Transferase 27 U/L (14-36); Bilirubin,Total 0.2 mg/dL (0.2-1.3); Blood Urea Nitrogen 22 mg/dL (7-17); Calcium 8.7 mg/dL (8.4-10.2); Carbon Dioxide 23 mmol/L (22-30); Chloride 98 mmol/L (98-107); Estimated Glomerular Filt Rate > 60; Glucose 121 mg/dL (65-110); Potassium 3.8 mmol/L (3.4-5.0); Sodium 130 mmol/L (137-145)
[2024-06-29 15:01] LABS: Chloride 106 mmol/L (98-109); Potassium 3.9 mmol/L (3.5-4.9); Sodium 139 mmol/L (138-146)
[2024-06-29 15:02] LABS: Blood Urea Nitrogen 22 mg/dL (8-26); Carbon Dioxide 22 mmol/L (22-30); Estimated Glomerular Filt Rate > 60; Glucose 123 mg/dL (70-105)
== END 2024-06-29 09:59 | disposition home or self-care (01) ==
PROVIDERS: PCP Family Medicine; Visit Provider Internal Medicine Hematology & Oncology
DX: D50.9 Iron deficiency anemia, unspecified (principal)
CPT/HCPCS: 36415; 80047; 80053; 85025

== ENCOUNTER 2025-06-29 11:03 | Outpatient (CLI) | payer OTHER, MEDICAID, SELFPAY ==
--- OUTSIDE RECORDS SUMMARY | 2024-03-21 07:13 | XMS_ITS | Continuity of Care Document ---
Author Organization [facility] Address [address] [place] [address] Phone Care Team Providers Care Graphic Specialist Name Role Phone Sherry Courtney MD Unavailable Unavailabl e Allergies, Adverse Reactions, Alerts Substance Reaction Status Criticality METOCLOPRAMIDE HCL Active No Inform ation Penicillins Active No Information Medications Medication Instructions Dosage Effective Dates (start - stop) Status Comments METOPROLOL TARTRATE (unknown strength) take 1 tablet by oral route 2 times every day Not Available - Active Plaquenil 200 mg tablet take 1 tablet by oral route every day 200 MG - Active ATIVAN (unknown strength) take 2 tablet by oral route 3 times every day as needed Not Available - Active ondansetron HCl 4 mg tablet take 2 tablet by oral route every 8 hours for 2 days 8 MG - Active LEVOTHYROXINE SODIUM (unknown strength) take 1 capsule by oral route every day Not Available - Active GABAPENTIN (unknown strength) take 3 capsule by oral route 3 times every day Not Available - Active aspirin 81 mg chewable tablet chew 1 tablet by oral route every day 81 MG - Active Procedures Procedure Date PERCUT ALLERGY SKIN TESTS OFFICE/OUTPATIENT VISIT NEW Advance Directives Directive Yes / No Effective Date File Name No Information Encounters Encounter Description Practice Location Reason(s) For Visit Diagnoses Date Provider Providers Copied on Encounter [facility] , [address], [place], [address], tel:[phone] [facility] No Information 4 Sherwin Powell. [address], [place], [place], [id number]. tel:[phone] OFFICE/OUTPA TIENT VISIT NEW [facility] , [address], [place], [address], [place] tel:[phone] [facility] allergy evaluation (chief complaint)exc ess inflammation (chief complaint)davonte g allergies (chief complaint) Celiac diseaseNon-an aphylactic adverse effect of foodAngioedem a, initial encounterFreq uent infectionsAll ergy to other foods 4 Sherwin Hamsa. [address], [place], [place], [id number]. tel:[phone] Family History Family Member Type Diagnosis Age At Onset Problem Family history of Hypertensi on Problem Family history of Coronary a rtery disease Problem Family history of Stroke Payers Payer name Insurance type Covered constitution party ID Authoriza tion(s) No Information Social History Type Description Quantity Date Captured Comments Alcohol Use Details Unknown Caffeine Use Details Unknown Tobacco Use Status No Information Smoking Status No Information Sex Female Chief Complaint And Reason For Visit No Information Reason For Referral Reason For Referral No Information History Of Present Illness Encounter Date Complaint History Of Prese nt Illness allergy evaluation 48-year-old p atient complains of worsening of inflammation and is worried about food allergies ,when she eats lately unable to pinpoint a particular food she feels inside of her mouth swells. She's extremely clear. It is not her lip, tongue or throat. It is the side of her mouth.(buccle mucosa.)No drooling, she has dry eyes and dry mouth. She has not done her endoscopy or colonoscopy. She has done a colon guard which was negative.Associated sometimes she has a combination of explosive, diarrhea and emesis.No coughing, occasional dysphasia, but she has never had odynophagia-occasionally pulls and food get stuck when she tries to swallow.She has a diagnosis of IBS complicated by both constipation and diarrheaShe has had it sometimes not always with Sesame, chicken, hamburger, sesame bun, almond, pecan, sometimes bread.She can consume all shellfish crustaceans, but not mollusk. excess inflammation Patient has rheumatological problem, treatment for rheumatoid arthritis. She says she also has lupus and fibromyalgia and neuropathy. Currently has a lot of neck pain around her. C6 and C7 tells me it radiates down her legs and arm, causing numbness.Patient tells me she has positive lupus anticoagulantHistory of HELP syndrome with her first unfortunately was still and hemorrhage during the second , which was a live . She has had two blood transfusions and one episode of pulmonary embolism.History of frequent infection in the pastHistory of shingles in the past 2019 and 2021 one of them has scarred her nasal passage. drug allergies other than penic illin that caused hives she is allergic to Reglan that caused extrapyramidal symptoms she also states she is allergic to prednisone which gives her panic attack, since this is not a true allergy , i did not put it in the allergy tab Functional Status Date Functional Assessmen t No Information Instructions Date Instruction Additional Infor mation No Information Assessments Type Assessment Date No Information Patient Care Teams Name Effective Dates (start - stop) Status Members No Information
--- OUTSIDE RECORDS SUMMARY | 2025-06-29 11:07 | XMS_ITS | Encounter Summary ---
Author Organization [facility] Address [address] [place] [address] Care Team Providers Care Mohs Surgeon/General Dermatologist Name Role Phone Prakash Velasquez MD Primary Care Provider + [phone] Reason for Visit * Reason Onset Date Comments Lipids 05/14/2025 Encounter Details Date Type Department Care Team (Late st Contact Info) Description 05/14/2025 Results Follow-Up [facility] Heart and Vascular - [address] [address] [address] [place] [address] Jade Ho LIPID PANEL Social History Tobacco Use Types Packs/Day Years Used Date Smoking Tobacco: Never Passive Smoke Exposure: Yes Smokeless Tobacco: Never Alcohol Use Standard Drinks/Week Comments Never 0 (1 standard drink = 0.6 oz pur e alcohol) Comments No Sex and Gender Information Value Date Recorded Sex Assigned at Not on file Legal Sex Female 9:29 AM CDT Gender Identity Not on file Sexual Orientation Not on file documented as of this encounter Miscellaneous Notes * Telephone Encounter - Jade Ho - 05/14/2025 11:46 AM CDT Lipids for review. documented in this encounter Plan of Treatment Upcoming Encounters Date Type Department Care Team (Late st Contact Info) Description 07/02/2025 10:00 AM CDT Office Visit [facility] Oncology and Hematology - [address] [facility] [address] [place] [phone] Santosh Loyd MD [address] [facility] [address] [facility] [address] [place] [address] 03/25/2026 10:30 AM CDT Office Visit [facility] Heart and Vascular - [address] [facility] [address] [address] [facility] [address] [place] [address] [place] [address] [facility] [address] [place] [address] documented as of this encounter Visit Diagnoses Not on filedocumented in this encounter Care Teams Mohs Surgeon/General Dermatologist Relationship Specialty Start Date End Date Prakash Velasquez MD [address] [place] [address] PCP - General Family Practice 07/21/19 documented as of this encounter
--- OUTSIDE RECORDS SUMMARY | 2025-06-29 11:07 | XMS_ITS | Encounter Summary ---
Author Organization [facility] Address [address] [place] [address] Care Team Providers Care Manager Money Name Role Phone Prakash Velasquez MD Primary Care Provider + [phone] Encounter Details Date Type Department Care Team (Late Contact Info) Description 06/29/2025 Orders Only [facility] Oncology and Hematology - [address] [place] [address] Santosh Loyd MD [address] [place] [phone] Iron deficiency anemia, unspecified iron deficiency anemia type (Primary Dx) Social History Tobacco Use Types Packs/Day Years [...] on file documented as of this encounter Plan of Treatment Upcoming Encounters Date Type Department Care Team (Late Contact Info) Description 07/02/2025 10:00 AM CDT Office Visit [facility] Oncology and Hematology - [address] [place] [address] Santosh Loyd MD [facility] [address] [place] [phone] 03/25/2026 10:30 AM CDT Office Visit [facility] Heart and Vascular - [address] [facility] [address] [address] [facility] [address] [place] [address] [place] [address] [facility] [address] [place] [address] Scheduled Orders Name Type Priority Associated Diagnoses Orde r Schedule BASIC METABOLIC PANEL Lab Routine Iron deficiency anemia, unspecified iron deficiency anemia type Expected: 06/29/2025, Expires: 06/29/2026 CBC WITH DIFFERENTIAL Lab Routine Iron deficiency anemia, unspecified iron deficiency anemia type Expected: 06/29/2025, Expires: 06/29/2026 IRON, TIBC, AND PERCENT SATURATION Lab Routine Iron deficiency anemia, unspecified iron deficiency anemia type Expected: 06/29/2025, Expires: 06/29/2026 FERRITIN Lab Routine Iron deficiency anemia, unspecified iron deficiency anemia type Expected: 06/29/2025, Expires: 06/29/2026 VITAMIN B12 AND FOLATE Lab Routine Iron deficiency anemia, unspecified iron deficiency anemia type Expected: 06/29/2025, Expires: 06/29/2026 documented as of this encounter Visit Diagnoses Diagnosis Iron deficiency anemia, unspecified iron deficiency anemia type- Primary documented in this encounter Care Teams Manager Money Relationship Specialty Start Date End Date Prakash Velasquez MD [address] [place] [address] PCP - General Family Practice 07/21/19 documented as of this encounter
--- OUTSIDE RECORDS SUMMARY | 2025-06-29 11:07 | XMS_ITS | Clinical Summary ---
Author Organization [facility] Address [address] [place] [address] Care Team Providers Care Bottom Liquor Attendant Name Role Phone Prakash Velasquez MD Primary Care Provider + [phone] Allergies Active Allergy Reactions Criticality Noted Date Comments Cefdinir Fever Low 09/18/2019 Iodinated Contrast Media Itching Low 11/21/2022 Metoclopramide Anxiety,Hallucination Medium 08/02/2018 Reaction: Panic attacks, , , , Reaction: panic attack, Metoclopramide Hcl Anxiety Low 08/08/2019 Penicillins Rash,Itching Low 08/02/2018 Propoxyphene-Acetaminoph en Nausea and Vomiting Low 09/18/2019 Rosuvastatin Muscle Pain Low 03/30/2022 Tramadol Hypertension Medium 09/18/2019 Medications aspirin (ECOTRIN EC) 81 mg Tablet, Delayed Release (E.C.) Take 81 mg by mouth daily. Active hydroxychloroqu ine sulfate (PLAQUENIL ORAL) Take by mouth. Activ e ondansetron (ZOFRAN ODT) 4 mg Tablet, Rapid Dissolve 0 9 Active LORazepam (ATIVAN) 0.5 mg tablet lorazepam 0.5 mg tablet 8 Active HYDROcodone-kelsie taminophen (NORCO) 7.5-325 mg Tablet TK 1 T PO QID PRF PAIN 0 Active ibuprofen (MOTRIN) 600 mg tablet Take 600 mg by mouth. 1 Active clobetasoL (TEMOVATE) 0.05 % Ointment AOPP TO LEG TWICE DAILY 1 Active ergocalciferol (VITAMIN D2) 50,000 unit capsule TAKE 1 CAPSULE BY MOUTH 1 TIME A WEEK 2 Active tacrolimus (PROTOPIC) 0.1 % Ointment APPLY EXTERNALLY TO THE AFFECTED AREA TWICE DAILY DIRECTED PER DOCTOR 2 Active levothyroxine 50 mcg tablet Take 50 mcg by mouth daily in the morning. Active metoprolol tartrate (LOPRESSOR) 25 mg tablet Take 12.5 mg by mouth 2 times daily. 3 Active cyclobenzaprine (FLEXERIL) 10 mg tablet Take 10 mg by mouth 3 times daily as needed. 2 Active tretinoin (RETIN-A) 0.05 % Cream APPLY TO FACE AT BEDTIME 4 Active losartan (COZAAR) 100 mg tablet Take 0.5 Tablets (50 mg) by mouth daily. 45 Tablet 3 5 Active Active Problems Problem Noted Date Diagnosed Date Snoring 10/16/2022 Iron deficiency anemia 12/04/2020 Antiphospholipid antibody syndrome 09/18/2019 Encounters Date Type Department Care Team Description 06/29/2025 Orders Only [facility] On[facility] Hematology - [place] [address] [place] [address] Santosh Loyd MD Iron deficiency anemia, unspecified iron deficiency anemia type (Primary Dx) 06/27/2025 External Device Data STL ABSTRACTION Provider, Abstract 06/26/2025 External Device Data STL ABSTRACTION Provider, Abstract 05/15/2025 External Device Data STL ABSTRACTION Provider, Abstract 05/14/2025 Results Follow-Up [facility] - [address] [facility] [address] [address] [facility] [address] [place] [address] Jade Ho LIPID PANEL 05/14/2025 Orders Only [facility] - [address] [facility] 300 [address] [facility] [address] [place] [address] Provider, Abstract 04/25/2025 External Device Data STL ABSTRACTION Provider, Abstract 04/25/2025 External Device Data STL ABSTRACTION Provider, Abstract 04/12/2025 Results Follow-Up [facility] - [address] [facility] 300 [address] [facility] [address] [place] [address] Wendy Lopez, LIFE SCIENCE TECHNICIAN ECHO COMPLETE - CONTRAST AND STRAIN IF INDICATED 04/11/2025 2:43 PM CDT - 04/11/2025 11:59 PM CDT Hospital Encounter [facility] Heart and Vascular Testing [facility] [address] [facility] [address] [place] [address] Wendy Lopez, LIFE SCIENCE TECHNICIAN Discharge Disposition: Home or Self Care 04/10/2025 Telephone [facility] - [place] [address] [facility] [address] [place] [phone] Santosh Loyd MD Lab/Colonoscopy Questions 04/05/2025 Telephone [facility] - [address] [facility] 300 [address] [facility] [address] [place] [address] Ernesto Flores MD colonoscopy question/clearance from Last 3 Months Family History Medical History Relation Name Comments Insomnia Brother 2 Heart Disease Father Insomnia Father Narcolepsy Father Heart Disease Mother Insomnia Mother Sleep Apnea Son German on cpap Relation Name Status Comments Brother 1 Alive Brother 2 Alive Brother 3 Alive Father Alive Mother Alive Son German Alive Social History Tobacco Use Types Packs/Day Years Used Date Smoking Tobacco: Never Passive Smoke Exposure: Yes Smokeless Tobacco: Never Tobacco Cessation:Counseling Given: Not Answered Alcohol Use Standard Drinks/Week Comments Never 0 (1 standard drink = 0.6 oz pur e alcohol) Comments No Sex and Gender Information Value Date Recorded Sex Assigned at Not on file Legal Sex Female 9:29 AM CDT Gender Identity Not on file Sexual Orientation Not on file Last Filed Vital Signs Vital Sign Reading Time Taken Comments Blood Pressure 169/107 03/19/2025 10:27 AM CDT Pulse 87 03/19/2025 10:27 AM CDT Temperature 36.8 C (98.2 F) 06/29/2024 10:14 AM CDT Respiratory Rate 18 06/29/2024 10:14 AM CDT Oxygen Saturation 97% 06/29/2024 10:14 AM CDT Inhaled Oxygen Concentration - - Weight 79.6 kg (175 lb 6.4 oz) 03/19/2025 10:27 AM CDT Height 160 cm (5' 3) 03/19/2025 10:27 AM CDT Body Mass Index 31.07 03/19/2025 10:27 AM CDT Plan of Treatment Upcoming Encounters Date Type Department Care Team (Late st Contact Info) Description 07/02/2025 10:00 AM CDT Office Visit [facility] - [place] [address] [facility] [address] [place] [address] Santosh Loyd MD [address] [facility] [address] [place] [address] 03/25/2026 10:30 AM CDT Office Visit [facility] - [id number] [place] [address] [facility] 300 [place] [phone] [place] [address] [facility] 300 [place] [address] Health Maintenance Due Date Last Done Comments Pre-Diabetes and Diabetes Screening 1975 DTAP/TDAP/TD VACCINES (1 - Tdap) 1994 HEPATITIS B VACCINES (1 of 3 - 19+ 3-dose series) 1994 ZOSTER VACCINE (1 of 2) 1994 HPV/Cotest (21-29) 1996 HPV/Cotest (30-65) 2005 COLORECTAL SCREENING 2020 Colorectal Cancer Screening 2020 FIT-DNA Q 3 years 2020 FIT/FOBT Q 1 year 2020 Flex Sig/CT Colonography Q 5 years 2020 Preventative Visit- Commercial 10/11/2024 12/17/2022 , 06/26/2019 INFLUENZA VACCINE (#1) 2025 CERVICAL CANCER SCREENING 12/17/2025 PAP SMEAR 12/17/2025 12/17/2022 BREAST CANCER SCREENING 01/24/2026 01/25/20 25, 01/24/2025, 12/28/2023, Additional history exists Procedures Procedure Name Priority Date/Time Associated Diagnosis Comments LIPID PANEL Routine 2025 11:41 AM CDT ECHO COMPLETE Routine 04/11/2025 4:01 PM CDT Benign hypertension Family history of atherosclerosis Heart rate fast from Last 3 Months Results * LIPID PANEL (2025 11:41 AM CDT) Blood us Abstract Provider CHEMISTRY ORDERABLES Edited Re sult - Final [facility] [address] [place] [address]# [id number] [address] [place] [id number] * ECHO COMPLETE - CONTRAST AND STRAIN IF INDICATED (04/11/2025 4:01 PM CDT) EJECTION FRACTION 61 INTERFACE SYSTEM 04/11/2025 3:11 PM CDT Narrative INTERFACE SYSTEM - 04/11/2025 4:49 PM CDT [facility] Heart and Vascular Testing Transthoracic Echocardiogram Patient: Kandace Ybarra Study ID: [id number] Gender: F : 1975 Age: 49 Race: CAU Height 160cm Study Date: 04/11/2025 Weight: 79.6kg Access. #: [id number] BP: 125 / 75 *Referring Physician:* Wendy Lopez Kate E *Ordering Physician:* Wendy LopezDirector Of Marketing Communications:* Aden Mandujano RDCS, T fish protector: Nurse: Indications: HTN. Family h/o atherosclerosis. Fast heart rate. History: PMH: HLD. Risk factors: Hypertension. STUDY CONCLUSIONS: SUMMARY: - Left ventricle: The cavity size was normal. Wall thickness was normal. Global systolic function is normal. The estimated ejection fraction is 60-65%. For Epic reporting: the left ventricular ejection fraction is 61% . - Mitral valve: Trace regurgitation. - Left atrium: The atrium is normal in size. - Right ventricle: The cavity size is normal. Systolic function is normal. - Pulmonic valve: Trace regurgitation. - Pulmonary arteries: The peak systolic pressure is 21mm Hg. Comparison: Compared prior Study Date: 03/27/2022 there are no significant changes. Cardiac Anatomy: LEFT VENTRICLE: The cavity size was normal. Wall thickness was normal. Global systolic function is normal. The estimated ejection fraction is 60-65%. For Epic reporting: the left ventricular ejection fraction is 61% . Wall motion is normal; there are no regional wall motion abnormalities. Global longitudinal strain was -18.9% (GLS is abnormal if greater than -16, i.e. -15). AORTIC VALVE: Structurally normal valve. Trileaflet. No significant regurgitation. The mean systolic gradient is 3mm Hg. The peak systolic gradient is 6mm Hg. The LVOT to aortic valve VTI ratio is 0.84. The valve area is 2.1cm^2. The ratio of LVOT to aortic valve peak velocity is 0.86. AORTA: Aortic root: The root is normal-sized. MITRAL VALVE: Structurally normal valve. Trace regurgitation. The mean diastolic gradient is 2mm Hg. The peak diastolic gradient is 5mm Hg. LEFT ATRIUM: The atrium is normal in size. RIGHT VENTRICLE: The cavity size is normal. Systolic function is normal. PULMONIC VALVE: Not well visualized. Structurally normal valve. Trace regurgitation. TRICUSPID VALVE: Structurally normal valve. Trace regurgitation. The peak diastolic gradient is 3mm Hg. RIGHT ATRIUM: The atrium was normal in size. SYSTEMIC VEINS: Inferior vena cava: The IVC is normal-sized. PERICARDIUM: There is no pericardial effusion. Measurements Left ventricle Value Ref 03/27/2022 GLS, 2D -18.9 % --------- IVS, ED, LAX (H) 1.0 cm 0.6 - 0.9 IVS, ES, LAX 1.1 cm --------- IVS thickening, LAX 10 % --------- LARY, LAX (L) 3.4 cm 3.8 - 5.2 LARY/bsa, LAX (L) 1.9 cm/m^2 2.3 - 3.1 LARY, LAX chord (N) 3.9 cm 3.8 - 5.2 3.5 ESD, LAX chord (N) 3.4 cm 2.2 - 3.5 2.7 LARY/bsa, LAX chord (L) 2.1 cm/m^2 2.3 - 3.1 2.0 ESD/bsa, LAX chord (N) 1.9 cm/m^2 1.3 - 2.1 1.5 FS, LAX chord (L) 13 % 27 - 45 23 IVS, ED (H) 1.0 cm 0.6 - 0.9 1.0 IVS, ES 1.1 cm --------- 0.9 IVS thickening 10 % --------- -7 PW, ED (H) 1.0 cm 0.6 - 0.9 1.1 PW, ES 1.1 cm --------- 1.3 EDV, 2-p (N) 47 ml 46 - 106 28 ESV, 2-p (N) 18 ml 14 - 42 10 EF, 2-p (N) 63 % 54 - 74 64 SV, 2-p 30 ml --------- 18 SV/bsa, 2-p 16.1 ml/m^2 --------- 10 E', med mitch, TDI (N) 11.1 cm/sec >=7.0 E/e', med mitch, TDI 8 --------- LVOT Value Ref 03/27/2022 Diam, S 1.8 cm --------- Area 2.5 cm^2 --------- 2.5 Peak jaxon, S 1.07 m/sec --------- 0.99 VTI, S 22.8 cm --------- 19.7 Right ventricle Value Ref 03/27/2022 LARY minor ax, A4C base (N) 2.7 cm 2.5 - 4.1 2.8 LARY minor ax, A4C mid (N) 2.1 cm 1.9 - 3.5 1.8 LARY major ax, A4C (L) 4.1 cm 5.9 - 8.3 5.1 TAPSE, MM (N) 2.1 cm >=1.7 Pressure, S 21 mm Hg --------- S' lateral (N) 12.8 cm/sec >=9.5 11.9 Left atrium Value Ref 03/27/2022 AP dim, ES (N) 3.1 cm 2.7 - 3.8 2.3 AP dim index, ES (N) 1.7 cm/m^2 1.5 - 2.3 SI dim, A4C 4.1 cm --------- 4.3 Area ES, A4C (N) 15 cm^2 <=20 12 Area/bsa ES, A4C 8.42 cm^2/m^2 --------- SI dim, A2C 4.7 cm --------- 4.3 SI dim, shorter 4.1 cm --------- 4.3 Vol, ES, 1-p A2C (N) 45 ml 22 - 52 26 Vol/bsa, ES, 1-p A2C (N) 24 ml/m^2 13 - 40 14 Vol, ES, 2-p 49 ml --------- 26 Vol/bsa, ES, 2-p (N) 27 ml/m^2 16 - 34 14 LA/Ao root ratio 1.19 --------- 0.92 Aortic valve Value Ref 03/27/2022 Peak v, S 1.3 m/sec --------- 1.4 Mean v, S 0.85 m/sec --------- 0.9 VTI, S 27.2 cm --------- 28.1 Accel time 95 ms --------- 123 Mean grad, S 3 mm Hg --------- 4 Peak grad, S 6 mm Hg --------- 8 LVOT/AV, VTI ratio 0.84 --------- 0.7 JOSÉ MIGUEL, VTI 2.1 cm^2 --------- 1.8 JOSÉ MIGUEL/bsa, VTI 1.16 cm^2/m^2 --------- 0.99 LVOT/AV, Vpeak ratio 0.86 --------- 0.72 JOSÉ MIGUEL, Vmax 2.2 cm^2 --------- 1.8 JOSÉ MIGUEL/bsa, Vmax 1.19 cm^2/m^2 --------- 1.02 Mitral valve Value Ref 03/27/2022 Peak E 0.87 m/sec --------- 0.77 Peak A 0.84 m/sec --------- 0.73 PHT 57 ms --------- 75 Mean grad, D 2 mm Hg --------- 2 Peak grad, D 5 mm Hg --------- 4 Peak E/A ratio 1 --------- MVA, PHT 3.9 cm^2 --------- 2.9 MVA/bsa, PHT 2.11 cm^2/m^2 --------- 1.63 Max MR v 2.99 m/sec --------- Peak LV-LA grad S 36 mm Hg --------- Pulmonic valve Value Ref 03/27/2022 Peak v, S 1.02 m/sec --------- 0.83 Peak grad, S 4 mm Hg --------- 3 Tricuspid valve Value Ref 03/27/2022 Peak E 0.79 m/sec --------- 0.57 Peak grad, D 3 mm Hg --------- TR peak v (N) 2 m/sec <=2.8 Peak RV-RA grad, S 16 mm Hg --------- Aortic root Value Ref 03/27/2022 Root diam, 2.6 cm --------- Ascending aorta Value Ref 03/27/2022 AAo AP diam, S 3.2 cm --------- AAo AP diam/bsa, S 1.7 cm/m^2 --------- Pulmonary artery Value Ref 03/27/2022 Pressure, S 21 mm Hg --------- 5 Systemic veins Value Ref 03/27/2022 Estimated RA pressure 5 mm Hg --------- 5 Legend: (L) and (H) ashley values outside specified reference range. (N) bryant values inside specified reference range. Procedure data: MCHOD Comparison was made to the study of 03/27/2022. Procedure information: A transthoracic echocardiogram was performed. Image quality was adequate. Scanning was performed from the parasternal, apical, and subcostal acoustic windows. Transthoracic echocardiogram. Complete 2D, complete spectral Doppler, and color Doppler. Birthdate: Patient birthdate: 1975. Age: Patient is 49year(s) old. Sex: gender: female. Height: 160cm. 63in. Weight: 79.6kg. 175.4lb. Body mass index: 31.1kg/m^2. Body surface area: 1.83m^2. Blood pressure: 125/75 Study date: Study date: 04/11/2025. Study time: 03:11 PM. Prepared and Electronically Authenticated Dwayne Figueroa [id number] Procedure Note Dwayne Figueroa MD - 04/11/2025 [facility] Transthoracic Echocardiogram Patient: Kandace Ybarra Study ID: [id number] Gender: F : 1975 Age: 49 Race: [facility] Height 160cm Study Date: 04/11/2025 Weight: 79.6kg Access. #: [id number] BP: 125 / 75 *Referring Physician:* Wendy Lopez KateE *Ordering Physician:* Wendy Lopez *Director Of Marketing Communications:* Aden Mandujano RDCS, T fish protector: Nurse: Indications: HTN. Family h/o atherosclerosis. Fast heart rate. History: PMH: HLD. Risk factors: Hypertension. STUDY CONCLUSIONS: SUMMARY: - Left ventricle: The cavity size was normal. Wall thickness was normal. Global systolic function is normal. The estimated ejection fraction is 60-65%. For Epic reporting: the left ventricular ejection fraction is61% . - Mitral valve: Trace regurgitation. - Left atrium: The atrium is normal in size. - Right ventricle: The cavity size is normal. Systolic function isnormal. - Pulmonic valve: Trace regurgitation. - Pulmonary arteries: The peak systolic pressure is 21mm Hg. Comparison: Compared prior Study Date: 03/27/2022 there are nosignificant changes. Cardiac Anatomy: LEFT VENTRICLE: The cavity size was normal. Wall thickness was normal.Global systolic function is normal. The estimated ejection fraction is 60-65%.For Epic reporting: the left ventricular ejection fraction is 61% . Wallmotion is normal; there are no regional wall motion abnormalities. Globallongitudinal strain was -18.9% (GLS is abnormal if greater than -16, i.e. -15). AORTIC VALVE: Structurally normal valve. Trileaflet. No significant regurgitation. The mean systolic gradient is 3mm Hg. The peak systolic gradient is 6mm Hg. The LVOT to aortic valve VTI ratio is 0.84. The valvearea is 2.1cm^2. The ratio of LVOT to aortic valve peak velocity is 0.86. AORTA: Aortic root: The root is normal-sized. MITRAL VALVE: Structurally normal valve. Trace regurgitation. Themean diastolic gradient is 2mm Hg. The peak diastolic gradient is 5mm Hg. LEFT ATRIUM: The atrium is normal in size. RIGHT VENTRICLE: The cavity size is normal. Systolic function isnormal. PULMONIC VALVE: Not well visualized. Structurally normal valve.Trace regurgitation. TRICUSPID VALVE: Structurally normal valve. Trace regurgitation. Thepeak diastolic gradient is 3mm Hg. RIGHT ATRIUM: The atrium was normal in size. SYSTEMIC VEINS: Inferior vena cava: The IVC is normal-sized. PERICARDIUM: There is no pericardial effusion. Measurements Left ventricle Value Ref 03/27/2022 GLS, 2D -18.9 % --------- IVS, ED, LAX (H) 1.0 cm 0.6 - 0.9 IVS, ES, LAX 1.1 cm --------- IVS thickening, LAX 10 % --------- LARY, LAX (L) 3.4 cm 3.8 - 5.2 LARY/bsa, LAX (L) 1.9 cm/m^2 2.3 - 3.1 LARY, LAX chord (N) 3.9 cm 3.8 - 5.2 3.5 ESD, LAX chord (N) 3.4 cm 2.2 - 3.5 2.7 LARY/bsa, LAX chord (L) 2.1 cm/m^2 2.3 - 3.1 2.0 ESD/bsa, LAX chord (N) 1.9 cm/m^2 1.3 - 2.1 1.5 FS, LAX chord (L) 13 % 27 - 45 23 IVS, ED (H) 1.0 cm 0.6 - 0.9 1.0 IVS, ES 1.1 cm --------- 0.9 IVS thickening 10 % --------- -7 PW, ED (H) 1.0 cm 0.6 - 0.9 1.1 PW, ES 1.1 cm --------- 1.3 EDV, 2-p (N) 47 ml 46 - 106 28 ESV, 2-p (N) 18 ml 14 - 42 10 EF, 2-p (N) 63 % 54 - 74 64 SV, 2-p 30 ml --------- 18 SV/bsa, 2-p 16.1 ml/m^2 --------- 10 E', med mitch, TDI (N) 11.1 cm/sec >=7.0 E/e', med mitch, TDI 8 --------- LVOT Value Ref 03/27/2022 Diam, S 1.8 cm --------- Area 2.5 cm^2 --------- 2.5 Peak jaxon, S 1.07 m/sec --------- 0.99 VTI, S 22.8 cm --------- 19.7 Right ventricle Value Ref 03/27/2022 LARY minor ax, A4C base (N) 2.7 cm 2.5 - 4.1 2.8 LARY minor ax, A4C mid (N) 2.1 cm 1.9 - 3.5 1.8 LARY major ax, A4C (L) 4.1 cm 5.9 - 8.3 5.1 TAPSE, MM (N) 2.1 cm >=1.7 Pressure, S 21 mm Hg --------- S' lateral (N) 12.8 cm/sec >=9.5 11.9 Left atrium Value Ref 03/27/2022 AP dim, ES (N) 3.1 cm 2.7 - 3.8 2.3 AP dim index, ES (N) 1.7 cm/m^2 1.5 - 2.3 SI dim, A4C 4.1 cm --------- 4.3 Area ES, A4C (N) 15 cm^2 <=20 12 Area/bsa ES, A4C 8.42 cm^2/m^2 --------- SI dim, A2C 4.7 cm --------- 4.3 SI dim, shorter 4.1 cm --------- 4.3 Vol, ES, 1-p A2C (N) 45 ml 22 - 52 26 Vol/bsa, ES, 1-p A2C (N) 24 ml/m^2 13 - 40 14 Vol, ES, 2-p 49 ml --------- 26 Vol/bsa, ES, 2-p (N) 27 ml/m^2 16 - 34 14 LA/Ao root ratio 1.19 --------- 0.92 Aortic valve Value Ref 03/27/2022 Peak v, S 1.3 m/sec --------- 1.4 Mean v, S 0.85 m/sec --------- 0.9 VTI, S 27.2 cm --------- 28.1 Accel time 95 ms --------- 123 Mean grad, S 3 mm Hg --------- 4 Peak grad, S 6 mm Hg --------- 8 LVOT/AV, VTI ratio 0.84 --------- 0.7 JOSÉ MIGUEL, VTI 2.1 cm^2 --------- 1.8 JOSÉ MIGUEL/bsa, VTI 1.16 cm^2/m^2 --------- 0.99 LVOT/AV, Vpeak ratio 0.86 --------- 0.72 JOSÉ MIGUEL, Vmax 2.2 cm^2 --------- 1.8 JOSÉ MIGUEL/bsa, Vmax 1.19 cm^2/m^2 --------- 1.02 Mitral valve Value Ref 03/27/2022 Peak E 0.87 m/sec --------- 0.77 Peak A 0.84 m/sec --------- 0.73 PHT 57 ms --------- 75 Mean grad, D 2 mm Hg --------- 2 Peak grad, D 5 mm Hg --------- 4 Peak E/A ratio 1 --------- MVA, PHT 3.9 cm^2 --------- 2.9 MVA/bsa, PHT 2.11 cm^2/m^2 --------- 1.63 Max MR v 2.99 m/sec --------- Peak LV-LA grad S 36 mm Hg --------- Pulmonic valve Value Ref 03/27/2022 Peak v, S 1.02 m/sec --------- 0.83 Peak grad, S 4 mm Hg --------- 3 Tricuspid valve Value Ref 03/27/2022 Peak E 0.79 m/sec --------- 0.57 Peak grad, D 3 mm Hg --------- TR peak v (N) 2 m/sec <=2.8 Peak RV-RA grad, S 16 mm Hg --------- Aortic root Value Ref 03/27/2022 Root diam, 2.6 cm --------- Ascending aorta Value Ref 03/27/2022 AAo AP diam, S 3.2 cm --------- AAo AP diam/bsa, S 1.7 cm/m^2 --------- Pulmonary artery Value Ref 03/27/2022 Pressure, S 21 mm Hg --------- 5 Systemic veins Value Ref 03/27/2022 Estimated RA pressure 5 mm Hg --------- 5 Legend: (L) and (H) ashley values outside specified reference range. (N) bryant values inside specified reference range. Procedure data: MCHOD Comparison was made to the study of 03/27/2022. Procedureinformation: A transthoracic echocardiogram was performed. Image quality wasadequate. Scanning was performed from the parasternal, apical, and subcostalacoustic windows. Transthoracic echocardiogram. Complete 2D, complete spectral Doppler, and color Doppler. Birthdate: Patient birthdate: 1975. Age: Patient is 49year(s) old. Sex: gender:female. Height: 160cm. 63in. Weight: 79.6kg. 175.4lb. Body mass index: 31.1kg/m^2. Body surface area: 1.83m^2. Blood pressure: 125/75Study date: Study date: 04/11/2025. Study time: 03:11 PM. Prepared and Electronically Authenticated Dwayne Figueroa [id number] Wendy Lopez [facility] US ORDERABLES Final Result INTERFACE SYSTEM Refer to clinic/hospital department from Last 3 [place] [place] [address] [address] [employer] [place] [address] [facility] [address] [place] [address] Care Teams Bottom Liquor Attendant Relationship Specialty Start Date End Date Prakash Velasquez MD [address] [place] [address] PCP - General Family Practice 07/21/19
--- OUTSIDE RECORDS SUMMARY | 2025-06-29 11:07 | XMS_ITS | Encounter Summary ---
Author Organization [facility] [employer] [facility] Address [address] [place] [address] Care Team Providers Care Head Bellhop Captain Name Role Phone Prakash Velasquez MD Primary Care Provider + [phone] Reason for Visit * Reason Onset Date Comments covid/hypertension 12/02/2023 Encounter Details Date Type Department Care Team (Late st Contact Info) Description 12/02/2023 Telephone [facility] Oncology and Hematology - [place] [address] [facility] [address] [place] [address] Santosh Loyd MD [address] [facility] [address] [place] [address] covid/hypertension Social History Tobacco Use Types Packs/Day Years [...] encounter Miscellaneous Notes * Telephone Encounter - Tara Baer - 12/02/2023 1:54 PM CST Pt called stating that she has had high blood pressures off and on, she has hyptertension and is onmedicine prescribed by her fluid pump operator. I asked her if she followed them at home and she said yes yesterday it was 138/82. She says she has had symptoms of feeling off since having covid, and is nowworried about her having a blood clot because sometimes her blood pressure will be high. I advised pt to call her pcp or fluid pump operator and try to get in with them to discuss her hypertension issues. She is also worried about having POTS but has upcoming apt for this. 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 [address] [place] [address] [place] [address] [facility] [address] [place] [address] documented as of this encounter Visit Diagnoses Not on filedocumented in this encounter Care Teams Head Bellhop Captain Relationship Specialty Start Date End Date Prakash Velasquez MD [address] [place] [address] PCP - General Family Practice 07/21/19 documented as of this encounter
--- OUTSIDE RECORDS SUMMARY | 2025-06-29 11:07 | XMS_ITS | Clinical Summary ---
Author Organization [facility] Address [address] [facility] [address] [place] [phone] Phone Care Team Providers Care Legal Operations Manager Name Role Phone Prakash Velasquez MD Primary Care Provider [phone] Allergies Active Allergy Reactions Criticality Noted Date Comments Cefdinir Iodinated Contrast Media Itching Low 11/21/2022 Levothyroxine Headache Low 05/02/2025 Per patient this medication gives her migraines Metoclopramide Anxiety Reaction: Panic attacks, , , , Reaction: panic attack, Metoclopramide Hcl Other (See comments) Low 03/17/2024 Penicillin G Penicillins Rash Reaction: RASH, , , Reaction: Rash, , Propoxyphene Unknown 09/25/2008 Propoxyphene-Acetaminoph en Nausea only,Vomiting Reaction: NAUSEA, VOMITING, Rosuvastatin Muscle pain Medium 03/30/2022 Tramadol Other (See comments) Low Anxiety Medications aspirin (ASPIRIN CHILDRENS) 81 mg chewable tablet chew 1 tablet (81MG) by oral route every day 0 3 Active hydroxychloroquine (PLAQUENIL) 200 mg tabletIndications: Long-term current use of high risk medication other than anticoagulant Take 2 tablets (400 mg total) by mouth daily. 60 tablet 6 7 Active HYDROcodone-acetam inophen (NORCO) 7.5-325 mg per tablet TK 1 T PO QID PRN P 0 9 Active LORazepam (ATIVAN) 0.5 mg tablet TK 1 T PO BID PRN 0 9 Active ibuprofen (ADVIL,MOTRIN) 600 mg tablet Take 1 tablet (600 mg total) by mouth every 6 (six) hours as needed for pain 60 tablet 2 1 Active clobetasoL (TEMOVATE) 0.05 % ointment AOPP TO LEG TWICE DAILY 1 Active ondansetron ODT (ZOFRAN-ODT) 4 mg disintegrating tablet Take 1 tablet (4 mg total) by mouth every 8 (eight) hours as needed for nausea or vomiting 20 tablet 3 Active hydrOXYzine (ATARAX) 10 mg tablet TAKE 1 TO 3 TABLETS BY MOUTH EVERY NIGHT AT BEDTIME NEEDED FOR ITCHING 3 Active metoprolol tartrate (LOPRESSOR) 25 mg immediate release tablet Take 0.5 tablets (12.5 mg total) by mouth daily 4 Active atogepant (Qulipta) 60 mg tabletIndications: Chronic migraine without aura without status migrainosus, not intractable Take 60 mg by mouth daily 30 tablet 11 5 Active nystatin ointmentIndication s:Yeast vaginitis Apply topically 2 (two) times a day 30 g 5 03/19/20 26 Active triamcinolone (KENALOG) 0.1 % ointmentIndication s:Yeast vaginitis Apply topically 2 (two) times a day 30 g 5 Active dexAMETHasone (DECADRON) 1 mg tablet Take 1 tablet when directed 1 tablet 5 Active ciclopirox (PENLAC) 8 % solution APPLY TOPICALLY TO NAILS AT NIGHT 5 Active levothyroxine (SYNTHROID) 50 mcg tabletIndications: Acquired hypothyroidism Take 1 tablet (50 mcg total) by mouth daily 30 tablet 1 5 Active ubrogepant (UBRELVY) 50 mg tabletIndications: Chronic migraine without aura without status migrainosus, not intractable Take 1 tablet (50 mg total) by mouth once as needed for migraine May repeat dose once in 2 hours if no relief. Do not exceed 2 doses in 24 hours. 10 tablet 11 5 05/02/20 26 Active Active Problems Problem Noted Date Diagnosed Date Fibromyalgia 05/01/2025 Other rheumatoid arthritis w ith rheumatoid factor of multiple sites 05/01/2025 Pulmonary embolism 05/01/2025 Positive colorectal cancer screening using Colog uard test 04/04/2025 Neuropathy 03/21/2024 Assessment & Plan (05/02/2025 10:23 AM CDT): The patient feels that her neuropathy symptoms are worsening. She reports that several members of her family including her son has been diagnosed with small fiber neuropathy. She would like to see a specialist regarding this. We will place ambulatory referral to neuromuscular Clinic at [facility] for evaluation treatment. Assessment & Plan (03/21/2024 3:08 PM CDT): Patient appears to have a length-dependent neuropathy consistent with small fiber neuropathy. No reversible cause has been found. We will monitor for now. The nortriptyline that was started today showed help with this symptom. 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 After running out of these medications about 6 months ago she has had recurrence of headache with similar characteristics in frequency as she had prior to the initiation at [facility].. She is requesting resumption of both medications at this time. I have resumed her topiramate at 300 mg b.i.d. and sumatriptan 100 mg b.i.d. p.r.n. as both in combination worked successfully for her in past. If she continues having ongoing appendicular numbness dizziness and lapses of awareness I would recommend further evaluation via a new neurologist and possibly welt stitch cleaner. Patient has been made aware that I am retiring and am unavailable to see her back to review any ordered testing,and there will be no neurologist in office for the foreseeable future upon my separation from practice. I have suggested that she follow-up with her PCP for referral to establish a new neurologist as well as a welt stitch cleaner for further evaluation of her new symptoms. She will follow-up with this office on an as-needed basis given my long-term. Iron deficiency anemia 12/04/2020 PMDD (premenstrual dysphoric disorder) Vitamin D deficiency 09/16/2020 Antiphospholipid antibody syndrome 09/18/2019 Stool color abnormal 06/08/2017 Long-term current use of hig h risk medication other than anticoagulant 05/26/2017 Migraine without status migrainosus, not intract able 05/26/2017 Assessment & Plan (05/02/2025 10:22 AM CDT): The patient has a history of migraine headaches which has been difficult to treat. She has had side effects to multiple medications in the past. Fortunately, she has noticed some therapeutic relief with Qulipta. She continues to have severe headaches that are significantly impairing her quality of life. She has not found benefit from triptan. Continue Qulipta 60 mg daily Start Ubrelvy 50 mg as needed. Side effects reviewed. Continue to monitor the severity and frequency of headaches. Contact us if any questions or concerns arise. Assessment & Plan (11/08/2024 9:57 AM FLOUR MIXER HELPER): The patient has a history of chronic migraines and unfortunately has not responded to multiple medications in the past. We discussed therapeutic options. Start Qulipta 60 mg daily. Side effects reviewed. Patient is to monitor the severity and frequency of her headaches. Follow up in six months Assessment & Plan (03/21/2024 3:07 PM CDT): The patient has a history of migraine headaches. However she has a constellation of other symptoms as described in the note. Until we get her migraines better I will be difficult to know which of her symptoms are related to her migraines. We discussed therapeutic options and decided to stop her gabapentin because of side effects and start her on nortriptyline 10 mg at night. Side effects reviewed. MRI of the brain to evaluate for any lesions that may be contributing to her symptoms. Patient is to maintain a headache calendar to monitor the severity and frequency of her headaches. Dizziness 12/31/2014 Overview (01/14/2017): Dizziness Ear discharge 12/31/2014 Overview (01/14/2017): Ear discharge Ear popping 12/31/2014 Overview (01/14/2017): Popping sensation in ear Coagulation disorder 04/24/2014 Overview (01/14/2017): PRIM HYPERCOAGULABLE ST Inflammatory arthritis 02/24/2014 Overview (01/15/2017): RA (rheumatoid arthritis) Acquired hypothyroidism 02/24/2014 Overview (01/14/2017): ACQUIRED HYPOTHYROID NEC History of thyroid disease 02/24/2014 Overview (01/14/2017): Hx of thyroiditis Arthralgia 02/24/2014 Overview (01/15/2017): JOINT PAIN-MULT JTS Pure hypercholesterolemia 02/24/2014 Overview (01/15/2017): PURE HYPERCHOLESTEROLEM Resolved Problems Problem Noted Date Diagnosed Date Resolved Date IUD contraception 11/04/2020 12/10/2020 Overview (11/04/2020): paragard in HUMBERTO --removed and replaced with Paragard Fibrositis 02/24/2014 07/12/2020 Overview (01/15/2017): FIBROMYALGIA Encounters Date Type Department Care Team Description 05/03/2025 Telephone [facility] Medicine Endocrinology Metabolism and Lipid [address] [facility] [address] [place] [address] [place] [phone] Kael Wang RN 05/03/2025 Telephone [facility] [address] [facility] [address] [address] Antonieta Payan MA Prior Auth 05/02/2025 10:00 AM CDT [facility] [address] [facility] [address] [place] [address] Jaleesa Steele MD Chronic migraine without aura without status migrainosus, not intractable (Primary Dx); Small fiber neuropathy; Neuropathy 05/02/2025 Telephone [facility] [address] [facility] [address] [place] [address] Amanda Cevallos RN 04/25/2025 Orders Only [facility] Medicine Endocrinology Metabolism and Lipid [address] [facility] 13th [place] [address] [place] [phone] Kael Wang, MATTY Acquired hypothyroidism (Primary Dx) 04/18/2025 Telephone [facility] Endocrinology Metabolism and Lipid [address] [facility] 5th [place] [address] [place] [address] Kael Wang RN Prior Auth (Synthroid) 04/18/2025 Orders Only [facility] Endocrinology Metabolism and Lipid [address] [facility] 5th [place] [address] [place] [phone] Kael Wang RN Acquired hypothyroidism (Primary Dx) 04/16/2025 12:48 PM CDT Anesthesia Event [facility] Digestive Disease [place] [address] [facility] [address] [place] [address] Oleksandr Damian MD 04/16/2025 12:45 PM CDT - 04/16/2025 1:30 PM CDT Surgery [facility] [address] [facility] [address] [place] [address] Kenna Verma MD PhD COLON REMOVAL SNARE 04/16/2025 11:36 AM CDT - 04/16/2025 2:01 PM CDT Hospital Encounter [facility] [address] [facility] [address] [place] [address] Kenna Verma MD PhD Positive colorectal cancer screening using Cologuard test Discharge Disposition: Discharge to home or self care 04/16/2025 Results Follow-Up [facility] [address] [facility] [address] [place] [phone] Eva Hernandez MD Colonoscopy, Surgical pathology 04/11/2025 Telephone [facility] Specialty Services [facility] [place] [address] Ailyn Brennan RN 04/10/2025 Orders Only [facility] Endocrinology Metabolism and Lipid [address] [facility] [address]th [place] [address] [place] [address] Colleen Ray MD Elevated cortisol level (Primary Dx) 04/10/2025 Results Follow-Up [facility] Endocrinology Metabolism and Lipid [address] [facility] [address]th [place] [address] [place] [address] Colleen Ray MD Comprehensive metabolic panel, TSH, T4, free, Additional followed-up results: 7 04/06/2025 Telephone [facility] Specialty Services [address] [place] [phone] Ailyn Brennan RN GI PROCEDURE 7 DAY PRE CALL 04/04/2025 Telephone [facility] Specialty Services [address] [place] [phone] Miscellaneous, Not In File 04/04/2025 Orders Only [facility] [address] [address] Eva Hernandez MD Positive colorectal cancer screening using Cologuard test (Primary Dx) 04/04/2025 Telephone [facility] [address] [facility] [address] [place] [address] Alma Odom, MATTY from Last 3 Months Surgical History Surgery Date Site/Laterality Comments OTHER SURGICAL HISTORY Pulmonary embolism, 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 OTHER SURGICAL HISTORY thyroid nodule: hemithyroidectomy for indeterminate FNA CHOLECYSTECTOMY Cholecystectomy THYROIDECTOMY Thyroidectomy Medical History Medical History Date Comments Hx Other Medical 2004 Pulmonary embol ism, after loss Hx Other Medical 2004 thyroid nodule; Outcome: benign Hx Other Medical 2004 HELLP; Outcome: loss at 51/2months Hx Other Medical BRONCHITIS/EMPH YSEMA Hx Other Medical OTHER HEMATOLOG IC PROBLEM Hx Other Medical DRY MOUTH Anemia Anemia History of multiple allergies Al lergies Hypertension Hypertension Hyperlipidemia Hyperlipidemia Hx Other Medical 2012 high T3 Primary fibromyalgia syndrome Fi bromyalgia Rheumatoid arthritis (HCC) Rheum atoid arthritis Disorder of thyroid Thyroid dise ase Hx 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 Hx Other Medical mirena insertio n 5-2007, removed 2012 Hx Other Medical hypothyroidism Hx Other Medical 2006 cholecystectomy Hx Other Medical 2007 blood transfusi on Hx Other Medical 2004 blood transfusi on Hx Other Medical 2006 clot in the lef t lung Hx Other Medical 2009 fibromyalgia Hx Other Medical 2010 rheumatoid arth ritis Osteoporosis Irritable bowel Autoimmune disease RA , fibromyalgia , lichen planus Family History Medical History Relation Name Comments Other Brother MUSCLE DYSTROPH Y; Headache Daughter 1 Headaches; stomach ulcer Daughter 1 Hemochromatosis Daughter 2 Other Daughter 2 elevated choles terol; Seizures Daughter 3 Seizure disorde r; Tuberculosis Daughter 4 Tuberculosis; Heart disease Father Petros Other Father Petros Alive and well; /cholesterol; Stroke Father Petros Cancer Maternal Grandmother nick Mehta Colon cancer Mother Emily Heart attack Mother Emily heart attack; Hyperlipidemia Mother Emily Hyperlipidemi a; /high cholesterol; Hypertension Mother Emily Hypertension; Other Mother Emily Alive and well; /?hypoglycemia; /HYPOGLYCEMIC; /hypoglycemia; /migraine headaches; Rheum arthritis Other 1 RA; Heart disease Other 2 Family history of Heart disease; Hyperlipidemia Other 3 Family histor y of Hyperlipidemia; Stroke Other 4 Family history of Stroke; Hypertension Other 5 Family history of Hypertension; Relation Name Status Comments Brother Daughter 1 Daughter 2 Daughter 3 Daughter 4 Father Petros Alive Maternal Grandmother nick Mehta Mother Emily Alive Other 1 Other 2 Other 3 Other 4 Other 5 Social History Tobacco Use Types Packs/Day Years Used Date Smoking Tobacco: Never Smokeless Tobacco: Never Tobacco Cessation:Counseling Given: Not Answered Alcohol Use Standard Drinks/Week Comments Yes 0 (1 standard drink = 0.6 oz pur e alcohol) AUDIT-C Answer Date Recorded Frequency of Alcohol Consumption Not on file 11/08/2024 Q2: How many drinks containi ng alcohol do you have on a typical day when you are drinking? Patient does not drink Frequency of Binge Drinking Not on file 10/12 Personal Safety Answer Date Recorded Have you ever been in or are you currently in a harmful physical or emotional relationship or is someone making you feel afraid or unsafe? 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 Gender Identity Not on file Sexual Orientation Not on file Obstetrics History Para Term AB IAB SAB Ectopic Multiple Livin g Live Births 8 2 2 6 Date Outcome GA Total Labor Labor/2nd/3rd Weight Sex Type Anes PTL Davida A1 A5 Name Clin SAB SAB Last Filed Vital Signs Vital Sign Reading Time Taken Comments Blood Pressure 142/99 04/16/2025 1:38 PM CDT Pulse 77 04/16/2025 1:38 PM CDT Temperature 36.3 C (97.3 F) 04/16/2025 1:18 PM CDT Respiratory Rate 19 04/16/2025 1:38 PM CDT Oxygen Saturation 100% 04/16/2025 1:38 PM CDT Inhaled Oxygen Concentration - - Weight 79.4 kg (175 lb) 05/02/2025 10:04 AM CDT Height 160 cm (5' 3) 05/02/2025 10:04 AM CDT Body Mass Index 31 05/02/2025 10:04 AM CDT Plan of Treatment Health Maintenance Due Date Last Done Comments Depression Screening 1975 DTaP/Tdap/Td Vaccine (1 - Tdap) 1986 Hepatitis B Screening 1993 Pneumococcal vaccine <65 (1 of 2 - PCV) 1994 Zoster Vaccine (1 of 2) 1994 Cervical Cancer Screening 12/18/2023 12/17/2022 Regular Well Visit/Exam 18-64 12/18/2023 12/17/2022, 06/26/2019 Influenza Vaccine (#1) 2025 Breast Cancer Screening-Mammogram 01/24/2026 01/24/2025, 12/28/2023, 02/05/2023, Additional history exists Colon Cancer Screening-Colonoscopy 04/16/20352024 Hepatitis C Screening Completed 06/08/2013 Procedures Procedure Name Priority Date/Time Associated Diagnosis Comments SURGICAL PATHOLOGY Routine 04/16/2025 1: 11 PM CDT Positive colorectal cancer screening using Cologuard test COLON REMOVAL SNARE Open Access 04/16/2025 1 2:49 PM CDT Positive colorectal cancer screening using Cologuard test COLONOSCOPY 04/16/2025 12:48 PM CDT POCT HCG, URINE Routine 04/16/2025 12:36 PM CDT CORTISOL Routine 04/06/2025 7:45 AM CDT Primary hypertension Hyperparathyroidi sm Acquired hypothyroidism Pure hypercholesterole anne Vitamin D deficiency Jana-menopause ESTRADIOL Routine 04/06/2025 7:44 AM CDT Primary hypertension Hyperparathyroidi sm Acquired hypothyroidism Pure hypercholesterole anne Vitamin D deficiency Jana-menopause FOLLICLE STIMULATING HORMONE Routine 04/06/2025 7:44 AM CDT Primary hypertension Hyperparathyroidi sm Acquired hypothyroidism Pure hypercholesterole anne Vitamin D deficiency Jana-menopause VITAMIN B12 Routine 04/06/2025 7:44 AM CDT Primary hypertension Hyperparathyroidi sm Acquired hypothyroidism Pure hypercholesterole anne Vitamin D deficiency Jana-menopause LIPID PANEL Routine 04/06/2025 7:42 AM CDT Primary hypertension Hyperparathyroidi sm Acquired hypothyroidism Pure hypercholesterole anne Vitamin D deficiency VITAMIN D 25 HYDROXY Routine 04/06/2025 7:42 AM CDT Primary hypertension Hyperparathyroidi sm Acquired hypothyroidism Pure hypercholesterole anne Vitamin D deficiency PTH Routine 04/06/2025 7:42 AM CDT Primary hypertension Hyperparathyroidi sm Acquired hypothyroidism Pure hypercholesterole anne Vitamin D deficiency T4, FREE Routine 04/06/2025 7:42 AM CDT Primary hypertension Hyperparathyroidi sm Acquired hypothyroidism Pure hypercholesterole anne Vitamin D deficiency TSH Routine 04/06/2025 7:42 AM CDT Primary hypertension Hyperparathyroidi sm Acquired hypothyroidism Pure hypercholesterole anne Vitamin D deficiency COMPREHENSIVE METABOLIC PANEL Routine 04/06/2025 7:42 AM CDT Primary hypertension Hyperparathyroidi sm Acquired hypothyroidism Pure hypercholesterole anne Vitamin D deficiency SCREENING MAMMOGRAM BILATERAL W JAIR Schedule Routine, Read Routine (OP Routine) 01/24/2025 2:19 PM CDT Screening mammogram, encounter for PAP AND HIGH RISK HPV, REFLEX TO GENOTYPING Routine 12/17/2022 3:28 PM FLOUR MIXER HELPER Well woman exam Cervical cancer screening SERUM HEPATITIS C AB Routine 06/08/2013 8:25 AM CDT from Last 3 Months or Most Recently Relevant to Health Maintenance Results * Surgical pathology (04/16/2025 1:11 PM CDT) Tissue (Polyp(s), colon/colorectal, esophageal, gastric) 04/16/2025 1:11 PM CDT Narrative PATHOLOGY [facility] - 04/17/2025 6:53 PM CDT EPIC results best viewed via link to PDF [facility] [place] [address] Note to Patients: This report may contain a detailed description of human tissue sent by a health care provider to the laboratory for pathologic evaluation. The content of this report is essential for diagnosis and may provide important critical findings. This information may be unfamiliar to patients to review without a medical professional present. It is advised that the patient review this report in the presence of a health care provider who can answer questions and explain the details. SURGICAL PATHOLOGY REPORT FINAL Patient Name: FARHAD YBARRA Gender: F : 1975 (Age: 49) [address]: [address] [place] [phone] Hospital #: [id number] Taken:04/16/2025 Received:04/16/2025 Reported: 04/17/2025 Patient Type: [facility] Service: Gastro Location: Physician(s): Kenna Verma M.D., PhD Prakash K. Motwani, M.D. Eva Hernandez M.D. Diagnosis: A. Large bowel, sigmoid colon, polyp, polypectomy/biopsy - Hyperplastic polyp fadia04/17/2025 12:54 By this signature, I attest that the above diagnosis is based upon my personal examination of the slides(and/or other material indicated in the diagnosis). Nick Leonardo M.D., Ph.D. Report Electronically Reviewed and Signed Out By Nick Leonardo M.D., Ph.D. 04/17/2025 18:53:52 Microscopic Description and Comment: Microscopic examination substantiates the above cited diagnosis. Christelle Leon M.D. History: The patient is a 49-year-old woman presenting for positive colorectal cancer screening using Cologuard test. Operative procedure: Colonoscopy and colon removal snare. Specimen(s) Received: A: Cold snare sigmoid colon polyp Gross Description: Received in formalin, labeled with the patient s identifiers and sigmoid colon polyp and consists of a single gallegos and brown fragment of soft tissue measuring 1.0 cm in greatest dimension. Labeled A1. Jar 0. sxst/04/16/2025 16:24 PA(s): Gaby Jo By this signature, I attest that the above diagnosis is based upon my personal examination of the slides(and/or other material). Addenda/Procedures The performance characteristics of some immunohistochemical stains, fluorescence in-situ hybridization tests and immunophenotyping by flow cytometry cited in this report (if any) were determined by the Surgical Pathology and Flow Cytometry Departments at [facility] as part of an ongoing quality assurance technician program and in compliance with federally mandated regulations drawn from the Clinical Laboratory Improvement Act of 1988 (CLIA '88). Some of these tests rely on the use of analyte specific reagents and are subject to specific labeling requirements by the US Food and Drug Administration. Such diagnostic tests may only be performed in a facility that is certified by the Department of Health and Human Services as a high complexity laboratory under CLIA '88. The FDA has determined that such clearance or approval is not necessary. This test is used for clinical purposes. It should not be regarded as investigational or for research. Nevertheless, federal rules concerning the medical use of analyte specific reagents require that the following disclaimer be attached to the report: This test was developed and its performance characteristics determined by the Surgical Pathology and Flow Cytometry Departments of [facility]. It has not been cleared or approved by the U. S. Food and Drug Administration. IMAGES AND SCANNED DOCUMENTS, IF INCLUDED, ONLY VIEWABLE IN PDF VERSION OF REPORT us Kenna Verma MD PhD LAB PATHOLOGY ORDERABLES Final Result PATHOLOGY [facility] 3rd Floor [place], [place] [phone] * Colonoscopy (04/16/2025 12:48 PM CDT) Anatomical Region Laterality Modality Other Narrative Procedure Note Kenna Verma MD PhD - 04/16/2025 12:48 PM CDT GI ENDOSCOPY [facility] Patient Name: Farhad Ybarra Procedure Date: 04/16/2025 12:48 PM Date of : 1975 Admit Type: Outpatient Age: 49 Gender: Female Attending MD: Kenna Verma M.D. Room: [facility] ENDOSCOPY ROOM 8 Note Status: Finalized Procedure: Colonoscopy Indications: Positive Cologuard test, family history of colon cancer in mother Referring MD: Eva Hernandez M.D. Providers: Kenna Verma M.D. Medicines: Monitored Anesthesia Care Complications: No immediate complications. Estimated Blood Loss: Estimated blood loss was minimal. Procedure: Pre-Anesthesia Assessment: - Immediately prior to administration ofmedications, the patient was re-assessed for adequacy to receive sedatives. - The risks and benefits of the procedure and the sedation options and risks were discussed with the patient. All questions were answered and informed consent was obtained. The benefits, risks and alternatives of theprocedure and sedation were discussed and informed consentwas obtained. All questions were answered. Please referto the signed informed consent document in the medical record. The scope was passed under direct vision.The [id number] endoscope was introduced through the anus and advanced to the cecum, identified by appendiceal orifice and ileocecal valve. The colonoscopy was performed without difficulty. The patient tolerated the procedure well. The qualityof the bowel preparation was excellent. The bowel preparation used was GoLYTELY via split dose instruction. Findings: The terminal ileum appeared normal. A 4 mm polyp was found in the sigmoid colon. The polyp was sessile.The polyp was removed with a cold snare. Resection and retrieval were complete. Retroflexion in the right colon was performed. External and internal hemorrhoids were found during retroflexion and during perianal exam. The hemorrhoids were medium-sized. Impression: - The examined portion of the ileum was normal. - One 4 mm polyp in the sigmoid colon, removed witha cold snare. Resected and retrieved. - External and internal hemorrhoids. Recommendation: - Await pathology results. - Repeat colonoscopy in 5 years for surveillance. - Return to referring physician. Attending Participation: I personally performed the entire procedure. Electronically signed by Kenna Verma MD Kenna Verma M.D. 04/16/2025 1:16:54 PM . Number of Addenda: 0 Note Initiated On: 04/16/2025 12:48 PM us Kenna Verma MD PhD ENDOSCOPY PROC EDURES Final Result * POCT hCG, urine (04/16/2025 12:36 PM CDT) Pathologist [facility] HCG, ur, POC Negative Negative Lot Number \[id number]\ QC Backgroud Clear Acceptable QC Control Line Acceptable Urine 04/16/2025 12:3 6 PM CDT Oleksandr Damian MD POINT OF CARE TEST ORDERABLES Fi nal Result * (ABNORMAL) Cortisol (04/06/2025 7:45 AM CDT) [facility] Cortisol 26.9(H) mcg/dL [facility] Comment: Reference Range: For 8 a.m.(7-9 a.m.) Specimen: 4.0-22.0 Reference Range: For 4 p.m.(3-5 p.m.) Specimen: 3.0-17.0 * Please interpret above results accordingly * Blood 04/06/2025 7:45 AM CDT 04/06/2025 7:45 AM CDT Narrative [facility] - 04/07/2025 1:10 AM CDT FASTING:YES FASTING: YES Colleen Ray MD LAB BLOOD ORDERABLES Final Result Performing Organization Address City/State/[facility] de Phone Number [facility] [address] [place] [address] * Estradiol (04/06/2025 7:44 AM CDT) [facility] Estradiol 141 pg/mL [facility] Comment: Reference Range Follicular Phase: 19-144 Mid-Cycle: 64-357 Luteal Phase: 56-214 Postmenopausal: < or = 31 Reference range established on post-pubertal patient population. No pre-pubertal reference range established using this assay. For any patients for whom low Estradiol levels are anticipated (e.g. males, pre-pubertal children and hypogonadal/post-menopausal females), the [facility] Estradiol, Ultrasensitive, LCMSMS assay is recommended (order code 98633). Please note: patients being treated with the drug fulvestrant (Faslodex(R)) have demonstrated significant interference in immunoassay methods for estradiol measurement. The cross reactivity could lead to falsely elevated estradiol test results leading to an inappropriate clinical assessment of estrogen status. [facility] order code 93164-[facility], Ultrasensitive LC/MS/MS demonstrates negligible cross reactivity with fulvestrant. Blood 04/06/2025 7:44 AM CDT 04/06/2025 7:44 AM CDT Narrative [facility] - 04/07/2025 1:37 AM CDT FASTING:YES FASTING: YES Colleen Ray MD LAB BLOOD ORDERABLES Final Result Performing Organization Address [facility] Co de Phone Number [facility] [address] [place] [address] * Follicle stimulating hormone (04/06/2025 7:44 AM CDT) Pathologist [facility] FSH 27.8 mIU/mL [facility] Comment: Reference Range Follicular Phase 2.5-10.2 Mid-cycle Peak 3.1-17.7 Luteal Phase 1.5- 9.1 Postmenopausal 23.0-116.3 Blood 04/06/2025 7:44 AM CDT 04/06/2025 7:44 AM CDT Narrative [facility] - 04/07/2025 1:37 AM CDT FASTING:YES FASTING: YES Colleen Ray MD LAB BLOOD ORDERABLES Final Result Performing Organization Address [facility]/ZIP Co de Phone Number [facility] [address] [place] [address] * Vitamin B12 (04/06/2025 7:44 AM CDT) Pathologist [facility] Vitamin B12 409 200 - 1,100 pg/mL [facility] Blood 04/06/2025 7:44 AM CDT 04/06/2025 7:44 AM CDT Narrative [facility] - 04/07/2025 1:37 AM CDT FASTING:YES FASTING: YES Colleen Ray MD LAB BLOOD ORDERABLES Final Result Performing Organization Address [facility] de Phone Number [facility] [address] [facility] [place] [address] * Vitamin D 25 hydroxy (04/06/2025 7:42 AM CDT) Vitamin D 25-OH 38 30 - 100 ng/mL [facility] Comment: Vitamin D Status 25-OH Vitamin D: Deficiency: <20 ng/mL Insufficiency: 20 - 29 ng/mL Optimal: > or = 30 ng/mL For 25-OH Vitamin D testing on patients on D2-supplementation and patients for whom quantitation of D2 and D3 fractions is required, the Quest[facility]ure[facility](TM) 25-OH VIT D, (D2,D3), LC/MS/MS is recommended: order code 62319 (patients >2yrs). See Note 1 Note 1 For additional information, please refer to http://education.flaregames/faq/YLG006 (This link is being provided for informational/ educational purposes only.) Blood 04/06/2025 7:42 AM CDT 04/06/2025 7:42 AM CDT Narrative [facility] - 04/07/2025 1:09 PM CDT FASTING:YES FASTING: YES Colleen Ray MD LAB BLOOD ORDERABLES Final Result Performing Organization Address [facility] Co de Phone Number [facility] [address] [place] [address] * TSH (04/06/2025 7:42 AM CDT) Pathologist [facility] TSH 1.12 mIU/L [facility] Comment: Reference Range > or = 20 Years 0.40-4.50 Ranges First trimester 0.26-2.66 Second trimester 0.55-2.73 Third trimester 0.43-2.91 Blood 04/06/2025 7:42 AM CDT 04/06/2025 7:42 AM CDT Narrative [facility] - 04/07/2025 1:09 PM CDT FASTING:YES FASTING: YES us Colleen Ray MD LAB BLOOD ORDERABLES Final Result Performing Organization Address [facility] de Phone Number [facility] [address] [place] [address] * T4, free (04/06/2025 7:42 AM CDT) Pathologist [facility] Free T4 1.0 0.8 - 1.8 ng/dL [facility] Blood 04/06/2025 7:42 AM CDT 04/06/2025 7:42 AM CDT Narrative [facility] - 04/07/2025 1:09 PM CDT FASTING:YES FASTING: YES us Colleen Ray MD LAB BLOOD ORDERABLES Final Result Performing Organization Address [facility] Phone Number [facility] [address] [facility] [place] [address] * PTH (04/06/2025 7:42 AM CDT) Pathologist [facility] Parathyroid hormone, intact 67 16 - 77 pg/mL [facility] Comment: Interpretive Guide Intact PTH Calcium ------- Normal Parathyroid Normal Normal Hypoparathyroidism Low or Low Normal Low Hyperparathyroidism Primary Normal or High High Secondary High Normal or Low Tertiary High High Non-Parathyroid Hypercalcemia Low or Low Normal High Blood 04/06/2025 7:42 AM CDT 04/06/2025 7:42 AM CDT Narrative [facility] - 04/07/2025 1:09 PM CDT FASTING:YES FASTING: YES us Colleen Ray MD LAB BLOOD ORDERABLES Final Result Performing Organization Address [facility] de Phone Number [facility] [address] [facility] [place] [address] * (ABNORMAL) Lipid panel (04/06/2025 7:42 AM CDT) Cholesterol 266(H) <200 mg/dL [facility] HDL 37(L) > OR = 50 mg/dL [facility] Triglycerides 240(H) <150 mg/dL [facility] Comment: If a non-fasting specimen was collected, consider repeat triglyceride testing on a fasting specimen if clinically indicated. Rosio et al. J. of Clin. Lipidol. 2015;9:129-169. LDL 185(H) mg/dL (calc) [facility] Comment: Reference range: <100 Desirable range <100 mg/dL for primary prevention; <70 mg/dL for patients with CHD or diabetic patients with > or = 2 CHD risk factors. LDL-C is now calculated using the Kurtis-Gem calculation, which is a validated novel method providing better accuracy than the Friedewald equation in the estimation of LDL-C. Kurtis KRISHNA et al. CRYSTAL. 2013;310(19): 8190-7985 (http://education.flaregames/faq/XEA931) Chol/HDL ratio 7.2(H) <5.0 (calc) [facility] Non-HDL, (LDL+VLDL) 229(H) <130 mg/dL (calc) [facility] Comment: Non-HDL level > or = 220 is very high and may indicate genetic familial hypercholesterolemia (FH). Clinical assessment and measurement of blood lipid levels should be considered for all first-degree relatives of patients with an FH diagnosis. For patients with diabetes plus 1 major ASCVD risk factor, treating to a non-HDL-C goal of <100 mg/dL (LDL-C of <70 mg/dL) is considered a therapeutic option. Blood 04/06/2025 7:42 AM CDT 04/06/2025 7:42 AM CDT Narrative [facility] - 04/07/2025 1:09 PM CDT FASTING:YES FASTING: YES Colleen Ray MD LAB BLOOD ORDERABLES Final Result [facility] [address] [address] * Comprehensive metabolic panel (04/06/2025 7:42 AM CDT) Glucose 99 65 - 99 mg/dL [facility] Comment: Fasting reference interval BUN 15 7 - 25 mg/dL [facility] Creatinine 0.71 0.50 - 0.99 mg/dL [facility] eGFR 104 > OR = 60 mL/min/1.7 3m2 [facility] BUN/creat ratio SEE NOTE: 6 - 22 (calc) [facility] Comment: Not Reported: BUN and Creatinine are within reference range. Sodium 139 135 - 146 mmol/L [facility] Potassium, pl 4.0 3.5 - 5.3 mmol/L [facility] Chloride 105 98 - 110 mmol/L [facility] CO2 28 20 - 32 mmol/L [facility] Calcium 8.6 8.6 - 10.2 mg/dL [facility] Protein, sr 6.1 6.1 - 8.1 g/dL [facility] Albumin 3.9 3.6 - 5.1 g/dL [facility] GLOBULIN 2.2 1.9 - 3.7 g/dL (calc) [facility] Alb/glob ratio 1.8 1.0 - 2.5 (calc) [facility] Bilirubin, total 0.3 0.2 - 1.2 mg/dL [facility] Alk phos 65 31 - 125 U/L [facility] AST 11 10 - 35 U/L [facility] ALT (SGPT) 10 6 - 29 U/L [facility] Blood 04/06/2025 7:42 AM CDT 04/06/2025 7:42 AM CDT Narrative [facility] - 04/07/2025 1:09 PM CDT FASTING:YES FASTING: YES us Colleen Ray MD LAB BLOOD ORDERABLES Final Result [facility] [address] [address] * Screening Mammogram Bilateral W Jair (01/24/2025 2:19 PM CDT) Anatomical Region Laterality Modality Breast Bilateral Mammography Narrative 01/25/2025 12:49 PM CDT Mammogram Technique: Bilateral Digital Breast Tomosynthesis, Bilateral C-view 2D Screening mammogram. Views obtained: bilateral craniocaudal and bilateral mediolateral oblique. Computer Aided Detection was performed. Mammogram Findings: The present examination has been compared to prior imaging studies performed at [facility] on 02/05/2023 and 12/28/2023, and at [facility] on 06/26/2015, 09/09/2016, 09/13/2017, 12/26/2018 and 10/21/2020. There are scattered areas of fibroglandular density. There is no suspicious abnormality in either breast. There are no significant changes from the prior study. Impression: There is no mammographic evidence of malignancy. Annual screening mammography is recommended. OVERALL FINAL ASSESSMENT: BI-RADS CATEGORY 1: Negative. Procedure Note Amara Michele MD - 01/25/2025 Mammogram Technique: Bilateral Digital Breast Tomosynthesis, Bilateral C-view 2D Screening mammogram. Views obtained: bilateral craniocaudal and bilateral mediolateral oblique. Computer Aided Detection was performed. Mammogram Findings: The present examination has been compared to prior imaging studies performed at [facility] on 02/05/2023 and 12/28/2023, and at [facility] on 06/26/2015, 09/09/2016, 09/13/2017, 12/26/2018 and 10/21/2020. There are scattered areas of fibroglandular density. There is no suspicious abnormality in either breast. There are no significant changes from the prior study. Impression: There is no mammographic evidence of malignancy. Annual screening mammography is recommended. OVERALL FINAL ASSESSMENT: BI-RADS CATEGORY 1: Negative. us Self Screening Mammogram IMG MAMMO PROCEDURES Fi nal Result * Pap and High Risk HPV, reflex to Genotyping (12/17/2022 3:28 PM FLOUR MIXER HELPER) Thin prep (Pap test) 12/17/2022 3:28 PM FLOUR MIXER HELPER 12/20/2022 2:18 PM CDT Narrative PATHOLOGY [facility] - 12/26/2022 1:35 PM CDT EPIC results best viewed via link to PDF [address] [address] Tele: Sharon Uribe MD - Assembly Inspector Helper CYTOLOGY REPORT Note to Patients: This report may contain a detailed description of human tissue sent by a health care provider to the laboratory for pathologic evaluation. The content of this report is essential for diagnosis and may provide important critical findings. This information may be unfamiliar to patients to review without a medical professional present. It is advised that the patient review this report in the presence of a health care provider who can answer questions and explain the details. Patient Name: FARHAD YBARRA Address: [address] [place] [address] Gender: F : 1975 (Age: 47) Service: Location: [facility] : [id number] Hospital #: [id number] [place] [facility] [place] Taken: 12/17/2022 Reported: 12/26/2022 Physician(s): YVETTE Pate FINAL DIAGNOSIS: Specimen Type: A. - ThinPrep Pap and HPV w/ reflex Genotyping: Statement of Specimen Adequacy: Source: Cervical/Endocervical - Satisfactory for interpretation - Endocervical/Transformation zone component absent or insufficient - Case screened using computer assisted imaging technology and manually re- screened by a university relations director. General Categorization: - Negative for intraepithelial lesion or malignancy j/12/26/2022 13:35PRISCILLA Velazquez(ASCP), CMIA Report Reviewed and Electronically Signed By PRISCILLA Velazquez(ASCP), CMIACClerical Data Follow A; G0145 DIAGNOSIS COMMENT: Ancillary Testing: HPV High Risk Group (16, 18, 31, 33, 35, 39, 45, 51, 52, 56, 58, 59, 66 and 68) - Not Detected Reference Range: Not Detected This test was performed using the REGINA 4800 CLINICAL DIAGNOSIS AND HISTORY Last Menstrual Period: 12/02/2022 Contraceptive History: No REPORT IMAGES AND/OR SCANNED DOCUMENTS ONLY VIEWABLE IN PDF FORMAT The Pap test is a screening test used to aid in the detection of cervical cancer and its precursors. It should not be the sole means by which malignant and premalignant lesions are diagnosed. Both false negative and false positive results may occur. It also has poor sensitivity for the detection of endometrial lesions and should not be used to evaluate suspected endometrial abnormalities. For these reasons it is most important to obtain Pap tests at regular intervals, as recommended by your physician or nurse practitioner. Marjorie Briceño NP LAB CYTOLOGY ORDERABLE S Final Result Performing Organization Address [facility] de Phone Number PATHOLOGY [facility] Laboratory Receiving [address] [place] [address] * (ABNORMAL) Serum Hepatitis C ab (06/08/2013 8:25 AM CDT) HCV ab REACTIVE( A) NON-REACT KECIA HISTORICAL RESULTS Hepatitis signal to cutoff ratio 1.66(H) <1.00 HISTORICAL RESULTS Comment: The patient's sample tests reactive with a low S/CO ratio: > or = 1.0 and <8.0. The CDC recommends supplemental testing. HCV RNA, Quantitative Real Time PCR (53390), which requires a fresh frozen sample be drawn and submitted, is suggested for this purpose. Serum 06/08/2013 8:25 AM CDT Narrative HISTORICAL RESULTS - 06/09/2013 5:00 AM CDT Test performed at [facility] [address] [place] [address] Director: AXEL KC DO,MPH Historical Provider LAB BLOOD ORDERABLES Kala swanson Result Performing Organization Address [facility] Co de Phone Number HISTORICAL RESULTS from Last 3 Months or Most Recently Relevant to Health Maintenance Insurance [facility] CIGNA GINA IDPA CIGNA IBEW IDPA Advance Directives For more information, please contact: [phone] * Full Code (Latest Code Status on File) Date Activated Date Inactivated Comments 04/16/2025 12:24 PM 04/16/2025 6:06 PM Care Teams Legal Operations Manager Relationship Specialty Start Date End Date Prakash Velasquez MD PCP - General 05/27/09
--- OUTSIDE RECORDS SUMMARY | 2025-06-29 11:07 | XMS_ITS | Encounter Summary ---
Author Organization [facility] Address [address] [place] [address] Phone Care Team Providers Care Motion Study Engineer Name Role Phone Prakash Velasquez MD Primary Care Provider [phone] Encounter Details Date Type Department Care Team (Late st Contact Info) Description 08/31/2023 Orders Only [facility] Scanning, Provider Social History Tobacco Use Types Packs/Day Years Used Date Smoking Tobacco: Never Smokeless Tobacco: Never Alcohol Use Standard Drinks/Week Comments Yes 0 (1 standard drink = 0.6 oz pur e alcohol) Comments No Sex and Gender Information Value Date Recorded Sex Assigned at Not on file 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
--- OUTSIDE RECORDS SUMMARY | 2025-06-29 11:08 | XMS_ITS | Patient Health Record ---
Author Organization [facility] [employer] [facility] [employer] Address [address] [facility] [address] [place] [address] Care Team Providers Care Deicer Finisher Name Role Phone Jair Kelly Unavailable [phone] Reason For Referral No Information Plan Of Treatment No Information
--- OUTSIDE RECORDS SUMMARY | 2025-06-29 11:08 | XMS_ITS | Clinical Summary ---
Author Organization [facility] Address [address] [place] [address] Care Team Providers Care Whiskey Regauger Name Role Phone Unavailable Primary Care Provider Unavailabl e Source Comments [facility],non-owned Affiliates and Associated Physician Practices is amultiple site organization consisting of ambulatory clinics and hospital sitesin [place], [place], [place] and [place]. This disclosure is being madepursuant to the Care Everywhere program and may not contain all information available regarding this patient. Last updated 18.[facility] Allergies Active Allergy Reactions Criticality Noted Date Comments Penicillins Itching 08/02/2018 Metoclopramide Psychiatric Medium 08/02/2018 Medications * Be aware that medications may not be up to date on this document. Always verify current medications with the patient. aspirin (ASPIRIN) 81 MG tablet 81 mg 12/14/2012 Active hydroxychloroqu ine (PLAQUENIL) 200 MG tablet 200 mg 12/14/2012 Activ e levothyroxine (SYNTHROID) 50 MCG tablet 50 mcg 12/31/2014 Active multivitamin (OPURITY) CHEW tablet take 1 tablet by oral route every day with food 12/31/2014 Active LORazepam (ATIVAN) 0.5 MG tablet TK 1 T PO BID PRN 0 07/19/2018 Active ondansetron, disintegrating, (ZOFRAN ODT) 4 MG tablet 2 06/14/2018 Active zolpidem (AMBIEN) 5 MG tablet TK 1 T PO EVERY DAY AT BEDTIME PRN FOR INSOMNIA 0 07/19/2018 Active meloxicam (MOBIC) 7.5 MG tablet Take 1 tablet by mouth 2 times daily 60 tablet 2 08/02/2018 Active predniSONE (DELTASONE) 5 MG tablet Take 2 tablets daily for 5days and then 1 tab x 5days and stop 15 tablet 1 08/05/2018 Active Social History Tobacco Use Types Packs/Day Years Used Date Smoking Tobacco: Never Smokeless Tobacco: Never Comments Unknown Sex and Gender Information Value Date Recorded Sex Assigned at Not on file 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 Gender Identity Not on file Sexual Orientation Not on file Last Filed Vital Signs Vital Sign Reading Time Taken Comments Blood Pressure 120/80 08/02/2018 10:14 AM CDT Pulse 91 08/02/2018 10:14 AM CDT Temperature - - Respiratory Rate 16 08/02/2018 10:14 AM CDT Oxygen Saturation 98% 08/02/2018 10:14 AM CDT Inhaled Oxygen Concentration - - Weight 75.3 kg (166 lb) 08/02/2018 10:14 AM CDT Height 160 cm (5' 3) 08/02/2018 10:14 AM CDT Body Mass Index 29.41 08/02/2018 10:14 AM CDT Plan of Treatment Health Maintenance Due Date Last Done Comments COLON MONITORING 1975 COLONOSCOPY - COLON CA SCREENING 1975 CT COLONOGRAPHY - COLON CA SCREENING 1975 FIT - COLON CA SCREENING 1975 FLEX SIG - COLON CA SCREENING 1975 LIPID TESTING 1975 HIV SCREENING 1990 HEPATITIS C SCREENING 05/06/1993 DTAP/TDAP/TD VACCINES (1 - Tdap) 1994 HEPATITIS B VACCINE (1 of 3 - 19+ 3-dose series) 1994 SCREENING FOR DIABETES 08/02/2018 DEPRESSION SCREENING 10/11/2024 COLOGUARD (AGES 45-75) - COLON CA SCREENING 02/17/2025 02/17/2022 Colorectal Cancer Screening 02/17/2025 PNEUMOCOCCAL VACCINE 50+ (1 of 1 - PCV) 2025 ZOSTER VACCINE (1 of 2) 2025 COVID-19 VACCINE (1 - season) 2025 INFLUENZA VACCINE (#1) 2025 PAP SMEAR 12/17/2025 12/17/2022 MAMMOGRAM 12/27/2025 12/28/2023, 01/10, 02/05/2023, Additional history exists HIB VACCINE Aged Out No longer eligi ble based on patient's age to complete this topic HPV VACCINE Aged Out No longer eligi ble based on patient's age to complete this topic MENINGOCOCCAL (Group B) VACCINE SHARED DECISION-MAKING Aged Out No longer eligible based on patient's age to complete this topic MENINGOCOCCAL GROUPS A/C/Y/W VACCINE Aged Out No longer eligible based on patient's age to complete this topic Insurance COMMERCIAL [facility] [place]
--- OUTSIDE RECORDS SUMMARY | 2025-06-29 11:08 | XMS_ITS | Patient Health Record ---
Author Organization 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 Name Role Phone Prakash Velasquez MD Primary Care Provider Unavail able Mattie Morris Unavailable [phone] Allergies Allergen (clinical drug ingredient) Drug/Non Drug Allergy documented on EMR Reaction Allergy Type Onset Date Status rosuvastatin Crestor Unknown Drug Allergy 02/03/2022 Act victor manuel Darvocet-N 100 Unknown Drug Allergy 04/06/2011 A ctive Darvon Unknown Drug Allergy 09/25/2008 Active metoclopramide Reglan Unknown Drug Allergy 09/25/2008 A ctive Substance with penicillin structure and antibacterial mechanism of action (substance) Penicillins Unknown Drug Allergy 09/25/2008 Active Results Component Value Reference Range Notes PAOLA reflex titer pattern VIOLA + dsDNA Reviewed date:12/31/2024 12:18:48 PM Interpretation:Lab Result Generalized Performing Lab:[facility] , [address] [facility] [id number] Notes/Report: PAOLA, Qual Negative Interpretive Data Normal range for PAOLA Qualitative Antibody = Negative. 1. PAOLA is performed using indirect immunofluorescence against HEp-2 cells 2. PAOLA titers are performed on all positive qualitative results. 3. A significantly positive PAOLA result is defined as a positive nuclear fluorescence at a titer of 1:80 or greater. 4. 15% of normal people above age 65 have significantly positive PAOLA results. 5% or less of normal people age 65 or under have significantly positive PAOLA results. Current interpretive data was last revised on 2020. Testing performed by: [facility], [address] [place]., [address] Anti-CCP (Cyclic Citrullinat ed Peptide Ab) Reviewed date:12/29/2024 10:41:02 AM Interpretation: Performing Lab:[facility] , [address] [place] [address]. [facility] [id number] Notes/Report: CCP Ab <0.5 <=2.9 units/mL Interpretive data Negative: <3 units/mL Positive: > or equal to 3 units/mL Current interpretive data was last revised on 2017. C Reactive Protein Reviewed date:12/28/2024 07:48:18 PM Interpretation: Performing Lab:[facility] , [address] [place] [address]. [facility] [id number] Notes/Report: C-Reactive Protein <3.0 <=10.0 mg/L CBC w auto diff Reviewed date:12/28/2024 07:48:18 PM Interpretation: Performing Lab:[facility] , [address] [place] [address]. [facility] [id number] Notes/Report: WBC 4.5 3.8-9.9 K/cumm Hgb 11.4 11.9-15.5 g/dL Hct 36.7 35.6-45.5 % Platelet Ct 206 150-400 K/cumm MPV 10.4 9.1-12.3 fL RBC 4.51 3.90-5.20 M/cumm MCV 81.4 81.3-96.4 fL MCH 25.3 27.1-33.3 pg MCHC 31.1 32.3-35.7 g/dL RDW CV 13.4 11.1-14.9 % RDW SD 39.5 35.7-48.1 fL NRBC Abs Auto 0.00 0.00-0.01 K/cumm Complement C3 Reviewed date:12/28/2024 07:48:18 PM Interpretation: Performing Lab:[facility] , [address] [place] [address]. [facility] [id number] Notes/Report: Complement, C3 146 90-180 mg/dL Complement C4 Reviewed date:12/28/2024 07:48:18 PM Interpretation: Performing Lab:[facility] , [address] [place] [address]. [facility] [id number] Notes/Report: Complement, C4 25 10-40 mg/dL Comprehensive metabolic pane l (CMP) Reviewed date:12/28/2024 07:48:18 PM Interpretation: Performing Lab:[facility] , [address] [place] [address]. [facility] [address] Notes/Report: Sodium 139 135-145 mmol/L Plasma Potassium 4.3 3.3-4.9 mmol/L Chloride 105 97-110 mmol/L Total CO2 25 22-32 mmol/L Anion Gap 9 2-15 mmol/L BUN 15 6-25 mg/dL Creatinine 0.75 0.60-1.10 mg/dL Glucose 82 70-199 mg/dL Interpretive Data Fasting glucose >/= 126 mg/dl is diagnostic for diabetes. Fasting is defined as no caloric intake for at least 8 hours. Fasting glucose between 100 mg/dl to 125 mg/dl is diagnostic of prediabetes. In a patient with classic symptoms of hyperglycemia or hyperglycemic crisis, a random glucose >/= 200 mg/dl is diagnostic for diabetes. In the absence of unequivocal hyperglycemia, results should be confirmed by repeat testing. The classification and Diagnosis of Diabetes Diabetes Care 2021; 46: S19-S40. Current interpretive data was last revised 2022. Total Calcium 8.7 8.5-10.3 mg/dL Total Bilirubin <0.2 0.1-1.2 mg/dL Plasma Total Protein 6.7 6.5-8.5 g/dL Albumin 3.9 3.5-5.0 g/dL Alkaline Phosphatase 76 40-130 Units/L ALT 18 7-45 Units/L AST 21 10-45 Units/L Creatine Kinase Reviewed date:12/28/2024 07:48:18 PM Interpretation: Performing Lab:[facility] , [address] [place] [address]. [facility] [id number] Notes/Report: Total CK 96 30-200 Units/L Rheumatoid Factor Reviewed date:12/28/2024 07:48:18 PM Interpretation: Performing Lab:[facility] , [address] [place] [address]. [facility] [id number] Notes/Report: RF, Lalo 11 <=15 IUnits/mL Sed Rate Reviewed date:12/28/2024 07:48:18 PM Interpretation: Performing Lab:[facility] , [address] [place] [address]. [facility] [address] Notes/Report: ESR 16 1-20 mm/hr UA, reflex Micro to Culture Reviewed date:12/28/2024 07:48:18 PM Interpretation: Performing Lab:[facility] , [address] [place] [address]. [facility] [address] Notes/Report: Color, Ur Yellow Yellow Clarity, Ur Clear Clear Spec Grav, Ur 1.016 1.003-1.03 pH, Ur 6.5 Interpretive Data ?Urine pH is affected by diet, medications, systemic acid-base disturbances, and renal tubular function. pH may affect urinary stone formation. For example, urine pH below 6.0 may help reduce the tendency for calcium phosphate stones and pH greater than 6.0 may reduce the tendency for uric acid stone formation. Source: [employer] Current Interpretive Data was last revised on 2017 Protein, Ur Ql Negative Negative Glucose, Ur Ql Negative Negative Ketones, Ur Negative Negative Bilirubin, Ur Negative Negative Blood, Ur 3+ Negative Urobilinogen, Ur <2.0 <2.0 mg/dL Nitrite, Ur Negative Negative Leukocyte Esterase, Ur Negative Negative UA reflex comment See Below Reflex to microscopic UA will be performed. Differential Automated Reviewed date:12/28/2024 07:48:18 PM Interpretation: Performing Lab:[facility] , [address] [place] [address]. [place] [address] Notes/Report: Neut Abs 2.6 1.5-6.5 K/cumm ImmGran Abs 0.0 0.0-0.1 K/cumm Lymphocyte Abs 1.4 0.8-3.3 K/cumm Reeves Abs 0.3 0.2-0.8 K/cumm Eos Abs 0.1 0.0-0.5 K/cumm Baso Abs 0.0 0.0-0.1 K/cumm Neut Pct 58.0 Interpretive Data Percent cell count reference ranges are not reported, since discordance with absolute values may lead to misinterpretation of CBC data. Current Interpretive Data was last revised on 2018. ImmGran Pct 0.2 Interpretive Data Percent cell count reference ranges are not reported, since discordance with absolute values may lead to misinterpretation of CBC data. Current Interpretive Data was last revised on 2018. Lymph Pct 30.5 Interpretive Data Percent cell count reference ranges are not reported, since discordance with absolute values may lead to misinterpretation of CBC data. Current Interpretive Data was last revised on 2018. Reeves Pct 7.5 Interpretive Data Percent cell count reference ranges are not reported, since discordance with absolute values may lead to misinterpretation of CBC data. Current Interpretive Data was last revised on 2018. Eos Pct 2.9 Interpretive Data Percent cell count reference ranges are not reported, since discordance with absolute values may lead to misinterpretation of CBC data. Current Interpretive Data was last revised on 2018. Baso Pct 0.9 Interpretive Data Percent cell count reference ranges are not reported, since discordance with absolute values may lead to misinterpretation of CBC data. Current Interpretive Data was last revised on 2018. UA Micro (All Sites) Reviewed date:12/28/2024 07:48:18 PM Interpretation: Performing Lab:[facility] , [address] [place] [address] Notes/Report: WBC, Ur 0-5 0-5 /HPF RBC, Ur 11-20 0-2 /HPF Epithl Squam, Ur 1-5 0-5 /HPF Culture reflex comment See Below Refle x conditions for urine culture (WBC >10) not met. Mucous Ur Present eGFR Reviewed date:12/28/2024 07:48:18 PM Interpretation: Performing Lab:[facility] , [address] [facility] [place] [address] Notes/Report: eGFR >90 >=60 mL/min/1.73 m2 Interpretive Data Reference Interval Normal >/= 90 mL/min/1.73m2 Mildly decreased* 60 - 89 mL/min/1.73m2 Mildly to moderately decreased 45 - 59 mL/min/1.73m2 Moderately to severely decreased 30 - 44 mL/min/1.73m2 Severely decreased 15 - 29 mL/min/1.73m2 Kidney Failure < 15 mL/min/1.73m2 *Relative to young adult level Estimated glomerular filtration rate is determined by the 2020 CKD-EPI equation recommended by the National Kidney [employer] (A Unifying Approach to GFR Estimation: Recommendations of the NKF-ASK Task Force on Reassessing the Inclusion of Race in Diagnosing Kidney Disease, JEREMIESN 2020). The CKD-EPI equation should not be used for patients with unstable renal function and has not been validated in children and those over 70. Current interpretive data was last reviewed 2021. Reason For Referral No Information Medications Medication SIG (Take, Route, Frequency, Duration) Notes Start Date End Date Status Zofran Active LORazepam 0.5 MG Oral Act victor manuel Metoprolol Tartrate 25 MG 1/2 tablet Ora lly once daily; Duration: 30 day(s) Active Calcium 600 + D 600-5 MG-MCG take 1 tablet by oral route once Oral 1 Active Hydroxychloroquine Sulfate 200 MG TAKE 2 TABLETS(400 MG) BY MOUTH EVERY DAY Oral; Duration: 90 days 09/03/2025 Active Aspirin 81 MG take 1 tablet (81 mg) by oral route once daily Oral 1 Active Vitamin D (Ergocalciferol) 1.25 MG (77975 UT) take 1 capsule weekly Oral Active Gabapentin 300 MG 1 capsule Orally Once a day; Duration: 30 day(s) Not-Taking Euthyrox 50 mcg take 1 tablet (50 mcg) by oral route once daily oral 1 Active Cyclobenzaprine HCl 10 MG take 1 tablet (10 mg) by oral route 2 times per day as needed Oral 2; Duration: 30 08/05/2022 Active Problems Problem Type SNOMED Code ICD Code Onset Dates Problem Status W/U Status Risk Notes Problem Rheumatoid arthritis (13800716) Other rheumatoid arthritis with rheumatoid factor of multiple sites (M05.89) Active confirmed Problem Fibromyalgia (187628561) Fibromyalgia (M79.7) Active confirmed Problem Neck pain (33087340) Neck pain, musculoskeletal (M54.2) Active confirmed Problem Mild or unspecified pre-eclampsia, with delivery (642.41) Active confirmed Problem Abnormal materna l glucose tolerance, complicating , childbirth, or the puerperium (648.8) Active confirmed Problem Hypothyroidism (61771097) Hypothyroidism, unspecified (E03.9) 12/24/19 10 Active confirmed Problem Pulmonary Embolism (97590287) Other pulmonary embolism without acute cor pulmonale (I26.99) Active confirmed Vital Signs Heart Rate 93 /min 12/28/2024 Temperature 98.5 degrees Fahrenheit 12/28/2024 Blood pressure diastolic 92 mm Hg 12/28/2024 Oximetry 96 % 12/28/2024 Height-cm 157.48 cm 12/28/2024 Weight-kg 80.2 kg 12/28/2024 Height 62 in 12/28/2024 Blood pressure systolic 132 mm Hg 12/28/2024 Weight 176.8 lbs 12/28/2024 BMI 32.33 kg/m2 12/28/2024 Encounters Encounter Location Date Provider Diagnosis [facility] [address] [place] [address] 08/02/2024 Mattie Du Other rheumatoid art hritis with rheumatoid factor of multiple sites M05.89 ; Fibromyalgia M79.7 and Neck pain, musculoskeletal M54.2 [facility] [address] [place] [address] 12/28/2024 Mattie Du Other rheumatoid art hritis with rheumatoid factor of multiple sites M05.89 ; Fibromyalgia M79.7 and Neck pain, musculoskeletal M54.2 [facility] [address], [place] [address] 02/27/2025 Mattie Du [facility] [address] [place] [address] 08/09/2024 Mattie Du [facility] [address] [place] [address] 12/28/2024 Mattie Du [facility] [address] [place] [address] 01/29/2025 Mattie Du Other rheumatoid art hritis with rheumatoid factor of multiple sites M05.89 [facility] [address] [place] [address] 06/04/2025 Mattie Du Other rheumatoid art hritis with rheumatoid factor of multiple sites M05.89 [facility] [address] [place] [address] 06/05/2025 Mattie Du Other rheumatoid art hritis with rheumatoid factor of multiple sites M05.89 Assessments Encounter Date Diagnosis (ICD Code) Assessment Notes Treatment Notes Treatment Clinical Notes Section Notes 08/02/2024 Other rheumatoid arthritis with rheumatoid factor of multiple sites (ICD-10 - M05.89) symptromatic, change gabapentin to lyrica 100mg bid, continue plaquenil and flexeril, return in 3 months 12/28/2024 Other rheumatoid arthritis with rheumatoid factor of multiple sites (ICD-10 - M05.89) has some swelling, previous doppler did not show DVT, will order labs 01/29/2025 Other rheumatoid arthritis with rheumatoid factor of multiple sites (ICD-10 - M05.89) 06/04/2025 Other rheumatoid arthritis with rheumatoid factor of multiple sites (ICD-10 - M05.89) 06/05/2025 Other rheumatoid arthritis with rheumatoid factor of multiple sites (ICD-10 - M05.89) 12/28/2024 Fibromyalgia (ICD-10 - M79.7) has some swelling, previous doppler did not show DVT, will order labs 08/02/2024 Fibromyalgia (ICD-10 - M79.7) symptromatic, change gabapentin to lyrica 100mg bid, continue plaquenil and flexeril, return in 3 months 08/02/2024 Neck pain, musculoskeletal (ICD-10 - M54.2) symptromatic, change gabapentin to lyrica 100mg bid, continue plaquenil and flexeril, return in 3 months 12/28/2024 Neck pain, musculoskeletal (ICD-10 - M54.2) has some swelling, previous doppler did not show DVT, will order labs Plan Of Treatment Pending Test Test Name Order Date CBC With Differential/Platelet Sedimentation Rate-Westergren 12/06/2023 Rheumatoid Arthritis Factor 12/06/2023 C-Reactive Protein, Quant 12/06/2023 Sjogren's Ab, Anti-SS-A/-SS-B 12/06/2023 CCP IgG Antibodies 12/06/2023 PAOLA w/Reflex 12/06/2023 Chem-Comprehensive 12/06/2023 Next Appt Details Provider Name:Mattie Morris, 07/23 01:15:00 PM, [address], [place], [address], Insurance Providers Payer Name Payer Address Payer Phone Subscriber Number Group Number Insured Name Patient Relationship to Insured Coverage Start Date Coverage End Date Char [address] ANTONIETA Becerril [id number] Kandace Ybarra Self - patient is the insured [facility] [address] [place] [address] [phone] [id number] Kandace Ybarra Self - patient is the insured 4 [employer] [address] [place]TONIET[place] Becerril [id number] [phone] [id number] Kandace Ybarra Self - patient is the insured 9 Medical (General) History Medical History History ICD Code Diabetes, Gestational; Fibromyalgia, Date of Onset: 10/01/2010 ; Hypothyroidism, Acquired, Date of Onset: 12/23/2009 ; Joint pain, Date of Onset: 10/14/2009 ; Polyarthropathy, Inflammatory, Date of O nset: 03/23/2011 ; Pre-Eclampsia; Pulmonary Embolism, Not Iatrogenic; Surgical History Surgery Date(Month/Year) Thyroidectomy: left; 2011-05-27 cholecystectomy; 2011-07-08
[2025-06-29 11:18] LABS: Hematocrit 33.7 % (37.0-47.0); Hemoglobin 10.9 g/dL (12.0-15.0); Immature Granulocyte Percent A 0.2 % (0-0.5); Lymphocytes Absolute Auto 1.27 K/mm3 (0.9-3.2); Mean Corpuscular HGB Conc 32.3 g/dl (32-36); Mean Corpuscular Hemoglobin 26.1 pg (26-34); Mean Corpuscular Volume 80.8 fl (80-100); Nucleated Red Blood Cells Absolute Auto 0.000 K/mm3 (0.0-0.012); Nucleated Red Blood Cells Perc 0.0 % (0.0-0.2); Platelet Count Result 180 k/mm3 (150-375); Red Blood Count 4.17 M/mm3 (4.2-5.4); White Blood Count 5.2 K/mm3 (4.5-10.0)
[2025-06-29 14:13] LABS: Iron 41 ug/dL (37-170)
[2025-06-29 14:14] LABS: Anion Gap 6 mmol/L (4-12); Blood Urea Nitrogen 17 mg/dL (7-17); Calcium 8.4 mg/dL (8.4-10.2); Carbon Dioxide 26 mmol/L (22-30); Chloride 106 mmol/L (98-107); Estimated Glomerular Filt Rate > 60; Glucose 100 mg/dL (65-110); Potassium 3.9 mmol/L (3.4-5.0); Sodium 138 mmol/L (137-145)
[2025-06-29 14:22] LABS: Percent Iron Saturation 10 % (20-50)
[2025-06-29 14:55] LABS: Ferritin 6.77 ng/mL (11.1-264)
[2025-06-29 15:25] LABS: Vitamin B12 358.0 pg/mL (239-931)
== END 2025-06-29 11:04 | disposition home or self-care (01) ==
LOC: ANHLAB 11:04
PROVIDERS: PCP Family Medicine; Visit Provider Internal Medicine Hematology & Oncology
DX: D50.9 Iron deficiency anemia, unspecified (principal)
CPT/HCPCS: 36415; 80048; 82607; 82728; 82746; 83540; 83550; 85025

== ENCOUNTER 2025-07-04 12:03 | Outpatient (CLI) | payer OTHER, MEDICAID, SELFPAY ==
[2025-07-04 12:16] LABS: Hematocrit 34.9 % (37.0-47.0); Hemoglobin 11.1 g/dL (12.0-15.0); Immature Granulocyte Percent A 0.2 % (0-0.5); Lymphocytes Absolute Auto 1.38 K/mm3 (0.9-3.2); Mean Corpuscular HGB Conc 31.8 g/dl (32-36); Mean Corpuscular Hemoglobin 25.8 pg (26-34); Mean Corpuscular Volume 81.0 fl (80-100); Nucleated Red Blood Cells Absolute Auto 0.000 K/mm3 (0.0-0.012); Nucleated Red Blood Cells Perc 0.0 % (0.0-0.2); Platelet Count Result 181 k/mm3 (150-375); Red Blood Count 4.31 M/mm3 (4.2-5.4); White Blood Count 5.2 K/mm3 (4.5-10.0)
[2025-07-04 13:31] LABS: Alanine Aminotransferase 15 U/L (6-35); Albumin Level 4.0 g/dL (3.5-5.1); Alkaline Phosphatase 69 U/L (38-126); Anion Gap 7 mmol/L (4-12); Aspartate Amino Transferase 23 U/L (14-36); Bilirubin,Total 0.2 mg/dL (0.2-1.3); Blood Urea Nitrogen 17 mg/dL (7-17); Calcium 8.5 mg/dL (8.4-10.2); Carbon Dioxide 27 mmol/L (22-30); Chloride 103 mmol/L (98-107); Estimated Glomerular Filt Rate > 60; Glucose 116 mg/dL (65-110); Potassium 3.7 mmol/L (3.4-5.0); Sodium 137 mmol/L (137-145); Total Protein 6.9 g/dL (6.3-8.2)
[2025-07-04 14:05] LABS: Ferritin 8.35 ng/mL (11.1-264)
[2025-07-04 14:43] LABS: Vitamin B12 367.0 pg/mL (239-931)
== END 2025-07-04 12:04 | disposition home or self-care (01) ==
LOC: ANHLAB 12:04
PROVIDERS: PCP Family Medicine; Visit Provider Internal Medicine Hematology & Oncology
DX: D64.9 Anemia, unspecified (principal); E83.19 Other disorders of iron metabolism
CPT/HCPCS: 36415; 80053; 82607; 82728; 82746; 85025

== ENCOUNTER 2025-07-06 11:09 | Outpatient (CLI) | payer OTHER, MEDICAID, SELFPAY ==
--- OUTSIDE RECORDS SUMMARY | 2025-07-05 10:00 | XMS_ITS | Encounter Summary ---
Author Organization [facility] Address [address] [place] [address] Phone Care Team Providers Care Hotel Engineer Name Role Phone Prakash Velasquez MD Primary Care Provider [phone] Reason for Referral * Neurology (Routine) - Pending Review Specialty Diagnoses / Procedures Referred By Brannon jacome Referred To Contact Diagnoses Neuropathy Numbness and tingling Procedures EMG/NCV - Amanda Moctezuma MD [address] [place] [address] Phone: tel: fax: [facility] (All Locations) Referral ID Status Reason Start Date Expiration Date V isits Requested Visits Authorized [id number] Pending Review 07/05/2025 08/04/2026 1 1 Reason for Visit * Consultation (Routine) - Closed Specialty Diagnoses / Procedures Referred By Brannon jacome Referred To Contact Neurology Diagnoses Small fiber neuropathy Jaleesa Steele MD [address] [facility] [address] [place] [address] Phone: tel: fax: Reyna Pulliam PA [address] [facility] DIV NEURO AGING AND DEMENTIA, [facility] [address] [place] [address] Phone: tel: fax: Referral ID Status Reason Start Date Expiration Date V isits Requested Visits Authorized [id number] Closed Specialty Services Required 05/02/2025 06/01/2026 1 1 Encounter Details Date Type Department Care Team (Late st Contact Info) Description 07/05/2025 10:00 AM CDT Office Visit [facility] Medicine Neuro Muscle [address] [facility] 6th [place] [address] [place] [address] Kip Solomon MD [address] [facility] [address] [place] [address] Neuropathy (Primary Dx); Numbness and tingling Social History Tobacco Use Types Packs/Day Years Used Date Smoking Tobacco: Never Smokeless Tobacco: Never Alcohol Use Standard Drinks/Week Comments Not Currently 0 (1 standard drink = 0.6 oz pur e alcohol) AUDIT-C Answer Date Recorded Q1: How often do you have a drink containing alcohol? Never 07/03/2025 Q2: How many drinks containi ng alcohol do you have on a typical day when you are drinking? Patient does not drink Q3: How often do you have si x or more drinks on one occasion? Never 07/03/2025 Personal Safety Answer Date Recorded Have you ever been in or are you currently in a harmful physical or emotional relationship or is someone making you feel afraid or unsafe? 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 Gender Identity Not on file Sexual Orientation Not on file documented as of this encounter Last Filed Vital Signs Vital Sign Reading Time Taken Comments Blood Pressure 145/82 07/05/2025 10:21 AM CDT Pulse 78 07/05/2025 10:21 AM CDT Temperature - - Respiratory Rate - - Oxygen Saturation - - Inhaled Oxygen Concentration - - Weight 78.5 kg (173 lb) 07/05/2025 10:21 AM CDT Height 160 cm (5' 3) 07/05/2025 10:21 AM CDT Body Mass Index 30.65 07/05/2025 10:21 AM CDT documented in this encounter Patient Instructions * Patient Instructions* Amanda Moctezuma MD - 07/05/2025 10:00 AM CDT Thank you for coming to see us today. At this point it is not clear what is causing your symptoms, but it is fair to obtain nerve conduction studies of your legs and then possibly a skin biopsy. It is fair to take gabapentin to treat your symptoms in the meanwhile. -EMG/NCS of the lower extremities -After the EMG, we will consider obtaining a skin biopsy -Labs today -We support taking gabapentin for your symptoms in the meanwhile, at a dose that you tolerate -Return to clinic in 4 months documented in this encounter Progress Notes * Amanda Moctezuma MD - 07/05/2025 10:00 AM CDT [facility] [address] [place] [address] - Home Page: [email or web address] NAME: Kandace Ybarra : 1975 JT: 07/05/2025 HISTORY OF PRESENT ILLNESS: Kandace Ybarra is a 50 y.o. female who [facility] for initial evaluation of possible small fiber neuropathy. The patient is a 50 yo female with complex medical history including HTN, HLD, chronic migraine, left C7 radiculopathy, right carpal tunnel syndrome, hypothyroidism, arthralgias with concern for seronegative arthritis on Plaquenil, LAC positivity with history of PE in 2004 while taking estrogen pill, anxiety, depression c/b pseudodementia, and chronic opiate use. The patient is known to [facility], as she used to follow with Dr. Mathews, and more recently she has established care with Dr. Steele at [facility]. In summary: - Headaches: thought to be chronic migraine, with component of anxiety and depression contributing to her worse headache. Most likely also with component of medication overuse, related to frequent and chronic use of ibuprofen and opiates such as [place]. Currently being managed by Dr Steele with Qulipta and Ubrelvana PRN. - Memory issues/brain fog: considered combination of iatrogenic from chronic opiate and benzodiazepine use, insomnia, and pseudodementia in the context of anxiety and depression. On exam she had normal cognitive function except poor attention and concentration. Recommended CBT and duloxetine in thepast, as well weaning off opiates, but did not tolerate duloxetine due to reported dizziness. - The patient has reported intolerable side effects from several of the medications she has been onin the past, sometimes leading to self discontinuation. This has included duloxetine and gabapentin. - 'Neuropathy': on initial presentation the patient reported difficulty moving her legs due to numbness/tingling if she sits for too long. No fixed weakness. She has had chronic low back pain, sometimes with right sciatica-like pain. She has noted numbness and tingling in her hands with prolonged use. She has had episodes of light headedness 2-3x/month, but not always associated with positional changes and has never actually passed out. She has IBS, primarily associated with diarrhea. No changes in sweating. On exam in 2021, she had normal strength, normal reflexes, normal coordination, antalgic gait rising from chair and walking but otherwise narrow based and stable appearing; normal sensat ion to light touch and vibration, with reported reduced temperature sensation in distal BLE with gradient to mid-montilla. Due to this length-dependent gradient in the legs to small fiber sensory modalities with sparing of the large fibers, she was thought to possibly have small fiber neuropathy. Screening neuropathy labs (B12, MMA, A1c) for potentially treatable underlying etiologies were sent, but i t was discussed that most patients do not have a clearly identifiable cause and the focus is on medications to control the symptoms. - On follow-up, she continued to report intermittent numbness in hands and feet. She stopped gabapentin due to sedation with 300 mg. Her reported numbness was very diffuse and not following a dermatomal pattern, involving the tip of fingers and lateral mid forearm and a patchy area in her deltoid area, and occasional decrease in lactation nurse strength. She reported pain with cervical range of motion. - In late 2022 she fell and subsequently reported pain involving neck and down the left arm, with stabbing and burning features. Cervical spine MRI showed left central disc protrusion at C6-C7 with mild spinal canal stenosis and mild left neural foraminal stenosis. - EMG/NCS 11/2023: 1) left C7 radiculopathy based on active denervation in the left triceps and extensor digitorum communis. 2) pexi-bh-rcqgpvyn distal median neuropathy on the right, compatible with right carpal tunnel syndrome, based on the absolutely and relatively prolonged right median distal motor and sensory latencies. 3) There is no evidence of ulnar neuropathy across the elbow bilaterally. The lower extremities were not tested, but there were no abnormalities to support generalized peripheral polyneuropathy. - In 2023 she had Covid and reported increased intensity in dizziness, with persistent pain in LUE,with sometimes also pain in the RUE and legs going numb although this was not new. On follow-up with PMR in late 2023 her neuro exam was overall normal and she was reported as looking better than prior. She was prescribed PT, which did not happen because prior instances of PT would make symptom worse, and told to think about epidural steroid injection. On follow-up with Dr. Steele this year, she reported worsening tingling and numbness in her hands and feet that comes and goes. Today, the patient reports that the reported worsening of her symptoms is in the frequency and context of her sensory changes. Numbness and tingling used to be more common with action, such as holding items in her hands, but now she would have numbness and tingling down her thighs and then whole feet when sitting down for longer periods. Tingling can eventually be painful and at that point her toe s would bother her the most. When sitting in a car, she would often develop numbness of the lateralaspect of the right thigh. Symptoms do not have a clear time pattern during the day, and may typically happen 2-3 times a week. There are no related skin changes, although she had some erythematous lesions on her legs lately which will be seen by Dermatology in the future. No significant sweating differences in her feet compared to prior years, if anything they may sweat more than before. She canhave dry eyes. Denied constipation, dry mouth, orthostatic hypotension. She would sometimes pee when coughing and sneezing, which is being investigated by OBGYN. Regarding response to treatment, when taking duloxetine or gabapentin in the past her pain was better, but episodes of numbness could still happen. Small Fiber Neuropathy questionnaire: - [x] Diabetes, Metabolic Syndrome, Chronic Kidney Disease : no diabetes, high LDL in the 180s (statin intolerance, waiting for Repatha), no CKD - [] Nutritional: B1, B6, B12 deficiency: B12 normal but in the 300s for a few years, B1 and B6 levels not available in our system - [] Infectious: HIV, Hepatitis C: positive HCV ab in the past but negative PCR viral load; no HIV - [x] Rheumatologic (SLE, Sjogrens, scleroderma, RA, EGPA, etc): patient reports concern for RA andAPLS, for which reports to have been seropositive. Per chart review, several tests were recently reassuring: PAOLA negative, dsDNA negative, anti-VIOLA negative, APLS labs negative, CCP negative, RF negative, ESR within normal limits, CRP within normal limits. In the context of PE in the setting of estrogen use several years ago, lupus anticoagulant antibody was positive, but subsequent tests including anti-cardiolipin and anti-beta 2 glycoprotein antibodies were negative. - [] Celiac Disease: no - [] Paraprotein MGUS or Amyloidosis: never tested, but normal serum protein levels in the past - [] Sarcoidosis: no - [] Immune-mediated: Plexin D1, TS-HDS (assoc with acute-onset), FGFR3 antibodies: never tested - [] Paraneoplastic Syndromes: Anti-Hu, Anti-CRMP5, Anti-PCA2: no cancer history - [] Genetic diseases:Tangiers Disease, Fabry, Pompe, Sodium channelopathies (SCN9A, SCN10A, SCN11A), Ehler-Danlos: no - [] HSAN: no - [] Toxic: thallium, bortezomib, metronidazole, linezolid, nitrofurantoin: no exposure - [] Trauma: electrical injury or frostbite/cold injury; no PAST MEDICAL HISTORY: HTN, HLD, chronic migraine, brain fog, left C7 radiculopathy, left carpal tunnel syndrome, hypothyroidism, arthralgias with concern for seronegative arthritis on Plaquenil, anxiety, and chronic opiate use MEDICATIONS: As cited and reviewed in the Epic medical record. ALLERGIES: As cited and reviewed in the Epic medical record. SOCIAL HISTORY: She reports that she has never smoked. She has never used smokeless tobacco. She reports that she does not use drugs. No current or past relevant EtOH use. FAMILY HISTORY: She reports that her brother has some form of muscle dystrophy, possibly Lassiter, with symptom onsetaround age 12. Her son is currently having an unspecified neuromuscular disorder with tightness of his ankles and on skin biopsy he met criteria for small fiber neuropathy according to his neurologist. 32 yo female daughter with iron overload, tested positive for one hemochromatosis gene. Cancer in her maternal grandmother; Colon cancer in an other family member; Headache in her daughter; Heart attack in her mother; Heart disease in her father and another family member; Hyperlipidemiain her mother and another family member; Hypertension in her mother and another family member; ; Rheum arthritis in an other family member; Seizures in her daughter; Stroke in her father and another family member; Tuberculosis in her daughter. PHYSICAL EXAMINATION: Vitals BP 145/82 (BP Location: Right arm, Patient Position: Sitting) Pulse 78 Ht 160 cm (5' 3) Wt 78.5 kg (173 lb) LMP 06/25/2025 (Exact Date) BMI 30.65 kg/m?? NEUROLOGIC EXAMINATION: MENTAL STATUS and LANGUAGE: Awake and alert. Able to provide a detailed history. Speech fluent and without errors. Follows commands including 2 steps and cross body commands. CRANIAL NERVES: Pupils equal, round, and reactive to light. Orthotropic in primary gaze. Extra-occular movements full and without nystagmus. Sensation intact to light touch in V1-V3 distributions bilaterally, although she endorses stronger sensation on the right V2-V3. Orbicularis oculi and socorro are strong to eye closure and cheek puff. Palate elevation is normal. Tongue strong with protrusion into the cheek to both sides. Side to side movements of the tongue were brisk. Speech clear. MOTOR: Normal muscle bulk. Tone normal in the upper and lower limbs. Finger taps and toe taps were normal and symmetric. Confrontational strength testing Right Left Deltoid 5 5 Biceps 5 5 Triceps 5 5 Wrist extensors 5 5 FDI 5 5 APB 5 5 Hip Flexion 5 4+ (pain limited) Quadriceps 5 5 Hamstrings 5 4+ (pain limited) Ankle Dorsiflexion 5 5 Ankle Plantar Flexion 5 5 Able to rise from a chair without using arms. SENSORY: Sensation decreased to pinprick and temperature in lower extremities, with gradient (normalizing just below both knees). Joint position sensation was normal in bilateral toes. Sensory examination showed the following by the white scale on the [facility] tuning fork: Right Left Fingers 8 8 Knees 8 8 Ankles 8 8 Toes 7.5 8 REFLEXES: Reflexes were as follows: Right Left Biceps 2+ 2+ Triceps 2+ 2+ Patella 2+ 2+ Ankles 2+ 2+ Jimenez negative, plantar responses. COORDINATION: Tqdkxr-kkwo-lerzep was normal bilaterally. Heel knee to montilla GAIT: Entered the office unassisted. Gait was narrow based and steady with normal stride length andreduced speed. Able to walk on heels and toes. Tandem walking was normal. DIAGNOSTIC DATA: Lab Results Component Value Date HGBA1C 5.4 01/27/2024 VITB12 409 04/06/2025 CK 96 12/28/2024 EMG/NCS 11/2023 A 48 y.o. female complains of numbness and tingling in her extremities for years. In August, she fell and injured her left shoulder and neck and has been complaining of pain in the left neck and left arm. Query peripheral polyneuropathy and left cervical radiculopathy/entrapment neuropathy. The procedure and possible complications were explained to the patient, and verbal consent was obtained. SUMMARY OF FINDINGS: The right median distal motor latency was slightly prolonged; CMAP amplitudes and motor conduction velocity were normal. The left median distal motor latency, CMAP amplitudes and motor conduction velocity were within normal range. Bilateral ulnar CMAP amplitudes, distal motor latency and motor conduction velocities were normal with no significant slowing across the elbows. The left peroneal and tibial motor nerve conduction studies were normal. The sural SNAP amplitudes and sensory conduction velocities were within normal range. The right median distal sensory onset latency was prolonged to the 1st and 3rd digits; this SNAP amplitudes were low normal and significantly smaller than the contralateral side. The left median distal sensory onset latencies and SNAP amplitudes were normal. Bilateral ulnar SNAP amplitudes and sensory conduction velocities were within normal range. The tibial H-reflex latencies were within normal limits with no significant exrm-kr-ekbp difference. Needle electromyography was done on the following muscles on the left deltoid, triceps, biceps, flexor carpi radialis, extensor digitorum communis, 1st dorsal interosseous, brachioradialis, and flexor pollicis longus. Fibrillations and positive sharp waves were noted in the triceps and 1st dorsal interosseous. Recruitment patterns were mildly reduced in the triceps but normal in the extensor digitorum communis. Needle electromyography of the right abductor pollicis brevis was normal. CONCLUSION/INTERPRETATION: The abnormalities in this study are compatible with left C7 radiculopathy based on the active denervation that was noted in the left triceps and extensor digitorum communis. The study also shows evidence of vszb-fg-irantize distal median neuropathy on the right, compatiblewith carpal tunnel syndrome. This conclusion is based on the absolutely and relatively prolonged right median distal motor and sensory latencies. There is no evidence of ulnar neuropathy across the elbow bilaterally. There are no abnormalities in this study to support generalized peripheral polyneuropathy. Sage Farley MD Electromyographer MBhumika. IMPRESSION AND PLAN: 50 yo female with complex medical history including HTN, HLD, chronic migraine, left C7 radiculopathy, right carpal tunnel syndrome, hypothyroidism, arthralgias with concern for seronegative arthritis on Plaquenil, LAC positivity with history of PE in 2004 while taking estrogen pill, anxiety, depression c/b pseudodementia, and chronic opiate use. #C7 radiculopathy #R carpal tunnel syndrome #Bilateral hands and feet paresthesias Impression: the patient has known left C7 radiculopathy accounting for arm stabbing and burning pain. Additionally, she has known untreated R carpal tunnel syndrome that can also cause sensory changes and pain in the right arm. She has reported numbness and tingling in her hands with prolonged use since 2021, which could be a reflection of these two known issues, or possibly a paraphysiological effect of using her upper extremities for extended periods of time when having underlying arthritis. She has had chronic low back pain, sometimes with right sciatica-like pain. Additionally, she has reported difficulty moving her legs due to numbness/tingling if she sits for too long, with no fixed weakness. Right sided meralgia paresthetica is very likely, given report of transient numbness of thelateral aspect of the right thigh when sitting for prolonged time. Likewise, onset of transient numbness and paresthesias in the feet that can be uncomfortable and even painful especially in the toes, could be a benign correlate of sitting for too long with liability to pressure-induced paresthesias and mild palsy, self-resolving with position changes of the legs. She denied classic features of small fiber neuropathy, such as worsening near the end of the day for example when laying in bed withsheets over the lower extremities, skin changes, or significant features of dysautonomia. Normal strength and sensation to vibration and proprioception in the lower extremities are reassuring as well. Moreover, there have been prior concerns for functional/psychogenic overlay in the reported symptoms, with prior evaluation consistent with pseudodementia in the setting of undertreated mood disorder and illness anxiety. On the other hand, fibromyalgia and small fiber neuropathy have often be co-diagnosed in patient series reported in literature. This said, the patient has consistently reported decreased sensation to pinprick and temperature inthe lower extremities since her visit with Dr. Mathews and Dr. Childs, with similar findings today,which after interpreting her history pragmatically still makes it appropriate to perform adequate workup to assess the possibility of small fiber neuropathy, given the presence of metabolic (hyperlipidemia) and possibly rheumatological abnormalities. Hyperlipidemia alone has been considered the likely culprit for SFN in several reports (PMCID: [id number]). Regardless of the ultimate underlying cause of her symptoms, may it be small fiber neuropathy, fibromyalgia, or other condition, it is likely that the most indicated treatments will be symptomatic and in the gabapentinoid and SNRI/TCA classes, as well as Pain Psychology/CBT to promote healthy coping strategies to her symptoms. SSRIs do not typically help with these conditions. Attention to her previously reported side effects to medications will be needed, with preference for medications that are typically well tolerated and starting from low doses to improve tolerability. This was reviewed with the patient, who accepted the plan below. Plan: - EMG/NCS with focus on the lower extremities; may also be helpful to assess whether her right carpal runnel has progressed in the interim - If radiculopathy is found, lumbar spine MRI should be considered - Labs today: B6, HIV, RPR, immunotyping, free light chains. Labs for rheumatological and inflammatory causes of SNF will not be repeated since they were tested recently and were negative - After EMG/NCS, we will consider skin biopsy to assess for small fiber neuropathy - We agree with gabapentin TID as recently prescribed by OBGYN clinic for perimenopausal symptoms. Could also start with even lower dose such as 100 TID and slowly titrate up. SNRIs such as low dose venlafaxine or duloxetine should also be considered -Return to clinic in 4 months Amanda Moctezuma MD Neurology PGY4 Cosigned by Kip Solomon MD at 07/06/2025 7:12 AM CDT Associated attestation - Kip Solomon MD - 07/06/2025 7:12 AM CDT I have seen and examined the patient. I agree with the findings and plan of care as documented in the resident/fellow's note. My total encounter time on 07/05/2025 was 60 minutes which was spent in the activities documented in the note. This includes time spent prior to the visit and after the visitin direct care of the patient. This time does not include time spent in any separately reportable services. Mrs. Ybarra has chronic, multifactorial pain and exam findings consistent with a small fiber neuropathy. Plan for EMG/NCS to evaluate for large fiber neuropathy followed by skin biopsy if that is normal. Has not tolerated duloxetine, lyrica, nortriptyline or gabapentin in the past but was recently restarted on the gabapentin for perimenopausal symptoms. documented in this encounter Miscellaneous Notes * Addendum Note - Kip Solomon MD - 07/05/2025 10:00 AM CDTAddended by: KIP SOLOMON on: 07/06/2025 07:10 AM Modules accepted: Level of Service documented in this encounter Plan of Treatment Pending Results Name Type Priority Associated Diagnoses Date /Time Vitamin B6 Lab Routine Neuropathy Numbness and tingling 07/05/2025 12:49 PM CDT Immunotyping, serum with interpretation Lab Routine Neuropathy Numbness and tingling 07/05/2025 12:49 PM CDT Scheduled Orders Name Type Priority Associated Diagnoses Orde r Schedule Vitamin B6 Lab Routine Neuropathy Numbness and tingling Expected: 07/08/2025, Expires: 07/05/2026 Immunotyping, serum with interpretation Lab Routine Neuropathy Numbness and tingling Expected: 07/08/2025, Expires: 07/05/2026 EMG/NCV - Neurology Routine Neuropathy Numbness and tingling 1 Occurrences starting 07/05/2025 until 07/05/2026 documented as of this encounter Results * Immunoglobulin free light chains (07/05/2025 12:49 PM CDT) [place]/Lambda ratio [facility] 1.10 0.26 - 1.65 Comment: Interpretive Data The Binding Site FreeLite assay procedure was used. Results from different manufacturers or methods may not be comparable. Serial testing should be performed using the same methods and instrumentation. Current Interpretive Data was last revised on 2023. [place] free light chain [facility] 1.38 0.33 - 1.94 mg/dL TOBY [facility] Comment: Interpretive Data The Binding Site FreeLite assay procedure was used. Results from different manufacturers or methods may not be comparable. Serial testing should be performed using the same methods and instrumentation. Current Interpretive Data was last revised on 2023. Lambda free light chain [facility] 1.26 0.57 - 2.63 mg/dL TOBY [facility] Comment: Interpretive Data The Binding Site FreeLite assay procedure was used. Results from different manufacturers or methods may not be comparable. Serial testing should be performed using the same methods and instrumentation. Current Interpretive Data was last revised on 2023. Blood 07/05/2025 12:4 9 PM CDT 07/05/2025 1:40 PM CDT us Amanda Moctezuma MD LAB BLOOD ORDERABLES Final Res ult TOBY BARAJAS [facility] Department [place] [address] * RPR Blood (07/05/2025 12:49 PM CDT) RPR Nonreactive Nonreactive Blood 07/05/2025 12:4 9 PM CDT 07/05/2025 1:40 PM CDT Amanda Moctezuma MD LAB MICROBIOLOGY - GENERAL ORD ERABLES Final Result Performing Organization Address [facility] Co de Phone Number TOBY [facility] [place] [address] * HIV 1/2 Antibody plus p24 Antigen Blood (07/05/2025 12:49 PM CDT) HIV 1/2 ab + p24 ag Nonreactive Nonreactive Comment:Nonreactive for HIV- 1 antigen and HIV-1/HIV-2 antibodies. No laboratory evidence of HIV infection. If acute HIV infection is suspected, consider testing for HIV-1 RNA. Current interpretive data was last revised on 22. Blood 07/05/2025 12:4 9 PM CDT 07/05/2025 1:40 PM CDT Amanda Moctezuma MD LAB MICROBIOLOGY - GENERAL ORD ERABLES Final Result Performing Organization Address [facility] de Phone Number [facility] [place] [address] documented in this encounter Visit Diagnoses Diagnosis Neuropathy- Primary Mononeuritis of unspecified site Numbness and tingling Disturbance of skin sensation documented in this encounter Discontinued Medications Medication Sig Discontinue Reason Start Date End Da te dexAMETHasone (DECADRON) 1 mg tablet Take 1 tablet when directed Therapy completed 04/10/2025 07/05/2025 hydrOXYzine (ATARAX) 10 mg tablet TAKE 1 TO 3 TABLETS BY MOUTH EVERY NIGHT AT BEDTIME NEEDED FOR ITCHING Therapy completed 08/30/2023 07/05/2025 documented as of this encounter Orders Outpatient Referral Count Last Ordered Date Fir st Ordered Date AMB REFERRAL TO NEUROLOGY 1 07/05/2025 documented in this encounter Care Teams Hotel Engineer Relationship Specialty Start Date End Date Prakash Velasquez MD PCP - General 05/27/09 documented as of this encounter
--- OUTSIDE RECORDS SUMMARY | 2025-07-05 14:50 | XMS_ITS | Encounter Summary ---
Author Organization [facility] Healthcare Address [address] [place] [address] Care Team Providers Care Sales Development Specialist Name Role Phone Prakash Velasquez MD Primary Care Provider [phone] Encounter Details Date Type Department Care Team (Late st Contact Info) Description 07/05/2025 2:50 PM CDT Lab [facility] (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[employer] Gender Identity Not on file Sexual Orientation Not on file documented as of this encounter Plan of Treatment Pending Results Name Type Priority Associated Diagnoses Date /Time Immunotyping, serum with interpretation Lab Routine Neuropathy Numbness and tingling 07/05/2025 12:49 PM CDT Vitamin B6 Lab Routine Neuropathy Numbness and tingling 07/05/2025 12:49 PM CDT documented as of this encounter Procedures Procedure Name Priority Date/Time Associated Diagnosis Comments IMMUNOGLOBULIN FREE LIGHT CHAINS Routine 07/05/2025 12:49 PM CDT Neuropathy Numbness and tingling HIV 1/2 ANTIBODY PLUS P24 ANTIGEN Routine 07/05/2025 12:49 PM CDT Neuropathy Numbness and tingling RPR Routine 07/05/2025 12:49 PM CDT Neuropathy Numbness and tingling documented in this encounter Results * HIV 1/2 Antibody plus p24 Antigen [...] ORD ERABLES Final Result Performing Organization Address City/[facility] Co de Phone Number [facility] [place] [address] * RPR Blood (07/05/2025 12:49 PM CDT) RPR Nonreactive Nonreactive Blood 07/05/2025 12:4 9 PM CDT 07/05/2025 1:40 PM CDT Amanda Moctezuma MD LAB MICROBIOLOGY - GENERAL ORD ERABLES Final Result Performing Organization Address City/[facility] Number [facility] [place] [address] * Immunoglobulin free light chains (07/05/2025 12:49 PM CDT) [place]/Lambda ratio [facility] 1.10 0.26 - 1.65 Comment: Interpretive Data The Binding Site FreeLite assay procedure was used. Results from different manufacturers or methods may not be comparable. Serial testing should be performed using the same methods and instrumentation. Current Interpretive Data was last revised on 2023. [place] free light chain [facility] 1.38 0.33 - 1.94 mg/dL [facility] Comment: Interpretive Data The Binding Site FreeLite assay procedure was used. Results from different manufacturers or methods may not be comparable. Serial testing should be performed using the same methods and instrumentation. Current Interpretive Data was last revised on 2023. Lambda free light chain [facility] 1.26 0.57 - 2.63 mg/dL [facility] Comment: Interpretive Data The Binding Site FreeLite assay procedure was used. Results from different manufacturers or methods may not be comparable. Serial testing should be performed using the same methods and instrumentation. Current Interpretive Data was last revised on 2023. Blood 07/05/2025 12:4 9 PM CDT 07/05/2025 1:40 PM CDT us Amanda Moctezuma MD LAB BLOOD ORDERABLES Final Res ult Performing Organization Address City/State/[facility] Co de Phone Number [facility] [place] [address] documented in this encounter Visit Diagnoses Diagnosis Neuropathy Mononeuritis of unspecified site Numbness and tingling Disturbance of skin sensation documented in this encounter Care Teams Sales Development Specialist Relationship Specialty Start Date End Date Prakash Velasquez MD PCP - General 05/27/09 documented as of this encounter
--- NOTE | ~2025-07-06 | XR_ITS ---
XR cervical spine 4-5V Indication: cervical spondylosis; NECK PAIN WORSE ON LT SIDE DOWN LT ARM Comparison: None Findings: The vertebral heights are intact. No fracture or subluxation. The disc heights are intact. Soft tissues unremarkable Impression: No acute abnormality. Reviewed, dictated and finalized at location P. Impression: No acute abnormality.
--- OUTSIDE RECORDS SUMMARY | 2025-07-06 11:16 | XMS_ITS | Encounter Summary ---
Author Organization [facility] Address [address] [place] [address] Care Team Providers Care Deicer Kit Assembler Name Role Phone Prakash Velasquez MD Primary Care Provider [phone] Encounter Details Date Type Department Care Team (Late Contact Info) Description 07/03/2025 Orders Only [facility] On[facility] H[facility]ology [address] [place] [address] Santosh Loyd MD [address] [place] [phone] Social History Tobacco Use Types Packs/Day Years [...] Department Care Team (Late Contact Info) Description 07/09/2025 4:30 PM CDT Telephone Check Up [facility] Oncology [facility] Hematology [address] [place] [address] Santosh Loyd MD [address] [place] [address] 03/25/2026 10:30 AM CDT Office Visit [facility] Heart and Vascular - [address] [facility] [address] [address] [facility] [address] [place] [address] [place] [address] [facility] [address] [place] [address] documented as of this encounter Procedures Procedure Name Priority Date/Time Associated Diagnosis Comments BASIC METABOLIC PANEL Routine 06/29/2025 7:47 AM CDT documented in this encounter Results * BASIC METABOLIC PANEL (06/29/2025 7:47 AM CDT) Blood Santosh Loyd MD CHEMISTRY ORDERABLES Final Resu lt documented in this encounter Visit Diagnoses Not on filedocumented in this encounter Care Teams Deicer Kit Assembler Relationship Specialty Start Date End Date Prakash Velasquez MD [address] [place] [address] PCP - General Family Practice 07/21/19 documented as of this encounter
--- OUTSIDE RECORDS SUMMARY | 2025-07-06 11:16 | XMS_ITS | Clinical Summary ---
Author Organization [facility] Address [address] [facility] [address] [place] [address] Phone Care Team Providers Care Livestock Dealer Name Role Phone Prakash Velasquez MD Primary Care Provider [phone] Allergies Active Allergy Reactions Criticality Noted Date [...] (81MG) by oral route every day 0 01/14/20 13 Active hydroxychloroquine (PLAQUENIL) 200 mg tabletIndications: Long-term current use of high risk medication other than anticoagulant Take 2 tablets (400 mg total) by mouth daily. 60 tablet 6 05/26/20 17 Active HYDROcodone-acetam inophen (NORCO) 7.5-325 mg per tablet TK 1 T PO QID PRN P 0 09/12/20 19 Active LORazepam (ATIVAN) 0.5 mg tablet TK 1 T PO BID PRN 0 09/12/20 19 Active ibuprofen (ADVIL,MOTRIN) 600 mg tablet Take 1 tablet (600 mg total) by mouth every 6 (six) hours as needed for pain 60 tablet 2 11/04/19 21 Active clobetasoL (TEMOVATE) 0.05 % ointment AOPP TO LEG TWICE DAILY 06/20/20 21 Active ondansetron ODT (ZOFRAN-ODT) 4 mg disintegrating tablet Take 1 tablet (4 mg total) by mouth every 8 (eight) hours as needed for nausea or vomiting 20 tablet 11/21/19 23 Active metoprolol tartrate (LOPRESSOR) 25 mg immediate release tablet Take 0.5 tablets (12.5 mg total) by mouth daily 03/20/20 24 Active atogepant (Qulipta) 60 mg tabletIndications: Chronic migraine without aura without status migrainosus, not intractable Take 60 mg by mouth daily 30 tablet 11 11/08/19 25 Active nystatin ointmentIndication s:Yeast vaginitis Apply topically 2 (two) times a day 30 g 03/19/20 25 026 Active triamcinolone (KENALOG) 0.1 % ointmentIndication s:Yeast vaginitis Apply topically 2 (two) times a day 30 g 03/19/20 25 Active ciclopirox (PENLAC) 8 % solution APPLY TOPICALLY TO NAILS AT NIGHT 03/27/20 25 Active levothyroxine (SYNTHROID) 50 mcg tabletIndications: Acquired hypothyroidism Take 1 tablet (50 mcg total) by mouth daily 30 tablet 1 05/01/20 25 Active ubrogepant (UBRELVY) 50 mg tabletIndications: Chronic migraine without aura without status migrainosus, not intractable Take 1 tablet (50 mg total) by mouth once as needed for migraine May repeat dose once in 2 hours if no relief. Do not exceed 2 doses in 24 hours. 10 tablet 05/02/20 026 Active gabapentin (NEURONTIN) 300 mg capsuleIndications :Vasomotor Symptoms associated with Menopause Take 1 capsule (300 mg total) by mouth 3 (three) times a day 90 capsule 07/03/20 026 Active hydrOXYzine (ATARAX) 10 mg tablet TAKE 1 TO 3 TABLETS BY MOUTH EVERY NIGHT AT BEDTIME NEEDED FOR ITCHING 08/30/20 025 Discontin ued(Thera py completed ) dexAMETHasone (DECADRON) 1 mg tablet Take 1 tablet when directed 1 tablet 04/10/20 025 Discontin ued(Thera py completed ) Active Problems Problem Noted Date Diagnosed Date [...] place ambulatory referral to neuromuscular Clinic at [facility] for evaluation treatment. 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 After running out of these medications about 6 months ago she has had recurrence of headache with similar characteristics in frequency as she had prior to the initiation at [facility].. She is requesting resumption of both medications at this time. I have resumed her topiramate at 300 mg b.i.d. and sumatriptan 100 mg b.i.d. p.r.n. as both in combination worked successfully for her in past. If she continues having ongoing appendicular numbness dizziness and lapses of awareness I would recommend further evaluation via a new neurologist and possibly mushroom cutter. Patient has been made aware that I am retiring and am unavailable to see her back to review any ordered testing,and there will be no neurologist in office for the foreseeable future upon my separation from practice. I have suggested that she follow-up with her PCP for referral to establish a new neurologist as well as a mushroom cutter for further evaluation of her new symptoms. She will follow-up with this office on an as-needed basis given my usp. Iron deficiency anemia 12/04/2020 PMDD (premenstrual dysphoric [...] arise. Assessment & Plan (11/08/2024 9:57 AM ELECTRIC CAR OPERATOR): The patient has a history of chronic [...] Encounters Date Type Department Care Team Description 07/05/2025 2:50 PM CDT Lab [facility] Advanced Medicine [facility] Advanced Medicine (CAM) [address] [place] [address] Neuropathy; Numbness and tingling 07/05/2025 10:00 AM CDT Office Visit [facility] Medicine Neuro Muscle [address] [facility] 6th [place] [address] [place] [phone] Kip Solomon MD Neuropathy (Primary Dx); Numbness and tingling 07/03/2025 3:00 PM CDT Office Visit [facility] [address] [facility] [address] [place] [address] Riddhi Purdy NP Well woman exam with routine gynecological exam (Primary Dx); Blood in stool; Vasomotor symptoms due to menopause 05/03/2025 Telephone [facility] Metabolism and Lipid [address] [facility] 13th [place] [address] [place] [address] Kael Wang RN 05/03/2025 [facility] [address] [place] [address] [place] [phone] Antonieta Payan MA Prior Auth 05/02/2025 10:00 AM CDT [facility] [address] [facility] [address], [place] [address] Jaleesa Steele MD Chronic migraine without aura without status migrainosus, not intractable (Primary Dx); Small fiber neuropathy; Neuropathy 05/02/2025 Telephone [facility] [address] [place] [address] [place] [phone] Amanda Cevallos RN 04/25/2025 Orders Only [facility] Medicine Endocrinology Metabolism and Lipid [address] [facility] 13th [place] [address] [place] [phone] Kael Wang, MATTY Acquired hypothyroidism (Primary Dx) 04/18/2025 Telephone [facility] Medicine Endocrinology Metabolism and Lipid [address] [facility] 5th [place] [address] [place] [phone] Kael Wang, MATTY Prior Auth (Synthroid) 04/18/2025 Orders Only [facility] Met[facility] and Lipid [address] [facility] 5th [place] [address] [place] [address] Kael Wang RN Acquired hypothyroidism (Primary Dx) 04/16/2025 12:48 PM CDT Anesthesia Event [facility] [place] [address] [facility] [address] [place] [address] Oleksandr Damian MD 04/16/2025 12:45 PM CDT - 04/16/2025 1:30 PM CDT Surgery [facility] [place] [address] [facility] [address] [place] [address] Kenna Verma MD PhD COLON REMOVAL SNARE 04/16/2025 11:36 AM CDT - 04/16/2025 2:01 PM CDT Hospital Encounter [facility] [address] [facility] [place] [address] Kenna Verma MD PhD Positive colorectal cancer screening using Cologuard test Discharge Disposition: Discharge to home or self care 04/16/2025 Results Follow-Up [facility] [address] [facility] [address] [place] [phone] Eva Hernandez MD Colonoscopy, Surgical pathology 04/11/2025 Telephone [facility] Specialty Services [address] [place] [phone] Ailyn Brennan RN 04/10/2025 Orders Only [facility] Met[facility] and Lipid [address] [facility] 13[address] [place] [address] [place] [phone] Colleen Ray MD Elevated cortisol level (Primary Dx) 04/10/2025 Results Follow-Up [facility] Metabolism and Lipid [address] [facility] 13th [place] [address] [place] [phone] Colleen Ray MD Comprehensive metabolic panel, TSH, T4, free, Additional followed-up results: 7 04/06/2025 Telephone [facility] Specialty Services [facility] [place] [address] Ailyn Brennan RN GI PROCEDURE 7 DAY PRE CALL from Last 3 Months Surgical History Surgery Date Site/Laterality Comments OTHER SURGICAL HISTORY Pulmonary embolism, 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 OTHER SURGICAL HISTORY thyroid nodule: hemithyroidectomy for indeterminate FNA CHOLECYSTECTOMY Cholecystectomy THYROIDECTOMY Thyroidectomy COLON POLYPECTOMY 04/10/2025 - 05/10/2025 Medical History Medical History Date Comments Hx Other Medical 2004 Pulmonary embol ism, 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 Hx Other Medical 2004 thyroid nodule; Outcome: benign Hx Other Medical 2005 HELLP; Outcome: loss at 51/2months Hx Other Medical BRONCHITIS/EMPH YSEMA Hx Other Medical OTHER HEMATOLOG IC PROBLEM Hx Other Medical DRY MOUTH Anemia Anemia History of multiple allergies Al lergies Hypertension Hypertension Hyperlipidemia Hyperlipidemia Hx Other Medical 2011 high T3 Primary fibromyalgia syndrome Fi bromyalgia Rheumatoid arthritis (HCC) Rheum atoid arthritis Disorder of thyroid Thyroid dise ase Hx 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 Hx Other Medical mirena insertio n , removed 2012 Hx Other Medical hypothyroidism Hx Other Medical 2006 cholecystectomy Hx Other Medical 2007 blood transfusi on Hx Other Medical 2005 blood transfusi on Hx Other Medical 2007 clot in the lef t lung Hx [...] Hypertension Other 5 Family history of Hypertension; Breast cancer Neg Hx Ovarian cancer Neg Hx Uterine cancer Neg Hx Relation Name Status Comments Brother Daughter 1 Daughter 2 Daughter 3 Daughter 4 Father Petros Alive Maternal Grandmother nick Mehta Mother Emily Alive Other 1 Other 2 Other 3 Other 4 Other 5 Social History Tobacco Use Types Packs/Day Years Used Date Smoking Tobacco: Never Smokeless Tobacco: Never Tobacco Cessation:Counseling Given: Not Answered Alcohol Use Standard Drinks/Week Comments Not Currently [...] on file Legal Sex Female 11:58 PM ELECTRIC CAR OPERATOR Gender Identity Not on file Sexual Orientation [...] Pulse 78 07/05/2025 10:21 AM CDT Temperature 36.3 C (97.3 F) 04/16/2025 1:18 PM CDT Respiratory Rate 19 04/16/2025 1:38 PM CDT Oxygen Saturation 100% 04/16/2025 1:38 PM CDT Inhaled Oxygen Concentration - - Weight 78.5 kg (173 lb) 07/05/2025 10:21 AM CDT Height 160 cm (5' 3) 07/05/2025 10:21 AM CDT Body Mass Index 30.65 07/05/2025 10:21 AM CDT Plan of Treatment Health Maintenance Due Date Last Done Comments Depression Screening 1975 DTaP/Tdap/Td Vaccine (1 - Tdap) 1986 Pneumococcal vaccine <65 (1 of 2 - PCV) 1994 Zoster Vaccine (1 of 2) 1994 Cervical Cancer Screening 12/18/2023 12/17/2022 Influenza Vaccine (#1) 2025 Breast Cancer Screening-Mammogram 01/24/2026 01/24/2025, 12/28/2023, 02/05/2023, Additional history exists Regular Well Visit/Exam 18-64 07/03/2026, 12/17/2022, 06/26/2019 Colon Cancer Screening-Colonoscopy 04/16/20352024 Hepatitis C Screening Completed 06/08/2013 Hepatitis B Screening Completed 07/12/2020 Procedures Procedure Name Priority Date/Time Associated Diagnosis Comments IMMUNOGLOBULIN FREE LIGHT CHAINS Routine 07/05/2025 12:49 PM CDT Neuropathy Numbness and tingling HIV 1/2 ANTIBODY PLUS P24 ANTIGEN Routine 07/05/2025 12:49 PM CDT Neuropathy Numbness and tingling RPR Routine 07/05/2025 12:49 PM CDT Neuropathy Numbness and tingling SURGICAL PATHOLOGY Routine 04/16/2025 1: 11 PM [...] REFLEX TO GENOTYPING Routine 12/17/2022 3:28 PM ELECTRIC CAR OPERATOR Well woman exam Cervical cancer screening SERUM HEPATITIS C AB Routine 06/08/2013 8:25 AM CDT from Last 3 Months or Most Recently Relevant to Health Maintenance Results * Immunoglobulin free light chains (07/05/2025 12:49 PM CDT) Pathologist [facility] Navarro/Lambda ratio [facility] 1.10 0.26 - 1.65 Comment: Interpretive Data The Binding Site FreeLite assay procedure was used. Results from different manufacturers or methods may not be comparable. Serial testing should be performed using the same methods and instrumentation. Current Interpretive Data was last revised on 2023. Navarro free light chain [facility] 1.38 0.33 - 1.94 mg/dL [facility] Comment: Interpretive Data The Binding Site FreeLite assay procedure was used. Results from different manufacturers or methods may not be comparable. Serial testing should be performed using the same methods and instrumentation. Current Interpretive Data was last revised on 2023. Lambda free light chain [facility] 1.26 0.57 - 2.63 mg/dL [facility] Comment: Interpretive Data The Binding Site FreeLite assay procedure was used. Results from different manufacturers or methods may not be comparable. Serial testing should be performed using the same methods and instrumentation. Current Interpretive Data was last revised on 2023. Blood 07/05/2025 12:4 9 PM CDT 07/05/2025 1:40 PM CDT Amanda Moctezuma MD LAB BLOOD ORDERABLES Final Res ult [facility] Department [place] [address] * HIV 1/2 Antibody plus p24 Antigen [...] MICROBIOLOGY - GENERAL ORD ERABLES Final Result [facility] Department [place] [address] * RPR Blood (07/05/2025 12:49 PM CDT) RPR Nonreactive Nonreactive Blood 07/05/2025 12:4 9 PM CDT 07/05/2025 1:40 PM CDT Amanda Moctezuma MD LAB MICROBIOLOGY - GENERAL ORD ERABLES Final Result [facility] Department [place] [address] * Surgical pathology (04/16/2025 1:11 PM CDT) Tissue (Polyp(s), colon/colorectal, esophageal, gastric) 04/16/2025 1:11 PM CDT Narrative PATHOLOGY [facility] - 04/17/2025 6:53 PM CDT EPIC results best viewed via link to PDF [facility] [place] [address] Note to Patients: This report may contain [...] Gender: F : 1975 (Age: 49) Address: [address] [place] [address] [place] [address] Hospital #: [id number] Taken:04/16/2025 Received:04/16/2025 Reported: 04/17/2025 Patient Type: [facility] Service: Gastro Location: Physician(s): Kenna Verma M.D., PhD Prakash Velasquez M.D. Eva Hernandez M.D. Diagnosis: A. Large bowel, sigmoid colon, polyp, polypectomy/biopsy - Hyperplastic polyp fadia/04/17/2025 12:54 By this signature, I attest that [...] in greatest dimension. Labeled A1. Jar 0. sxst04/16/2025 16:24 PA(s): Gaby Jo By this signature, I attest that the above diagnosis is based upon my personal examination of the slides(and/or other material). Addenda/Procedures The performance characteristics of some immunohistochemical stains, fluorescence in-situ hybridization tests and immunophenotyping by flow cytometry cited in this report (if any) were determined by the Surgical Pathology and Flow Cytometry Departments at [facility] as part of an ongoing aerospace quality engineer program and in compliance with federally mandated [...] Pathology and Flow Cytometry Departments of [facility]. It has not been cleared or approved by the U. S. Food and Drug Administration. IMAGES AND SCANNED DOCUMENTS, IF INCLUDED, ONLY VIEWABLE IN PDF VERSION OF REPORT us Kenna Verma MD PhD LAB PATHOLOGY ORDERABLES Final Result PATHOLOGY [facility] 3rd Floor [place], [place] [phone] * Colonoscopy (04/16/2025 12:48 PM CDT) Anatomical Region Laterality Modality Other Narrative Procedure Note Kenna Verma MD PhD - 04/16/2025 12:48 PM CDT GI ENDOSCOPY [facility] Patient Name: Farhad Ybarra Procedure Date: 04/16/2025 12:48 PM Date of : 1975 Admit Type: Outpatient Age: 49 Gender: Female Attending MD: Kenna Verma M.D. Room: [facility] ENDOSCOPY ROOM 8 Note Status: Finalized [...] The scope was passed under direct vision.The [id number] endoscope was introduced through the anus [...] hCG, urine (04/16/2025 12:36 PM CDT) Pathologist [facility] HCG, ur, POC Negative Negative Lot Number \[id number] QC Backgroud Clear Acceptable QC Control Line Acceptable Urine 04/16/2025 12:3 6 PM CDT Oleksandr Damian MD POINT OF CARE TEST ORDERABLES Fi nal Result * (ABNORMAL) Cortisol (04/06/2025 7:45 AM CDT) [facility] Cortisol 26.9(H) mcg/dL [facility] Comment: Reference Range: For 8 a.m.(7-9 a.m.) Specimen: 4.0-22.0 Reference Range: For 4 p.m.(3-5 p.m.) Specimen: 3.0-17.0 * Please interpret above results accordingly * Blood 04/06/2025 7:45 AM CDT 04/06/2025 7:45 AM CDT Narrative [facility] - 04/07/2025 1:10 AM CDT FASTING:YES FASTING: YES Colleen Ray MD LAB BLOOD ORDERABLES Final Result [facility] [address] [facility] [place] [address] * Estradiol (04/06/2025 7:44 AM CDT) [facility] Estradiol 141 pg/mL [facility] Comment: Reference Range Follicular Phase: 19-144 Mid-Cycle: 64-357 Luteal Phase: 56-214 Postmenopausal: < or = 31 Reference range established on post-pubertal patient population. No pre-pubertal reference range established using this assay. For any patients for whom low Estradiol levels are anticipated (e.g. males, pre-pubertal children and hypogonadal/post-menopausal females), the [employer] [facility] Estradiol, Ultrasensitive, LCMSMS assay is recommended (order code 18733). Please note: patients being treated with the drug fulvestrant (Faslodex(R)) have demonstrated significant interference in immunoassay methods for estradiol measurement. The cross reactivity could lead to falsely elevated estradiol test results leading to an inappropriate clinical assessment of estrogen status. [employer] order code [id number]-Tlohlixel, Ultrasensitive LC/MS/MS demonstrates negligible cross reactivity with fulvestrant. Blood 04/06/2025 7:44 AM CDT 04/06/2025 7:44 AM CDT Narrative [facility] - 04/07/2025 1:37 AM CDT FASTING:YES FASTING: YES Colleen Ray MD LAB BLOOD ORDERABLES Final Result Performing Organization Address [facility]/ZIP Co de Phone Number [facility] [address] [place] [address] * Follicle stimulating hormone (04/06/2025 7:44 AM CDT) Pathologist [facility] FSH 27.8 mIU/mL [facility] Comment: Reference Range Follicular Phase 2.5-10.2 Mid-cycle Peak 3.1-17.7 Luteal Phase 1.5- 9.1 Postmenopausal 23.0-116.3 Blood 04/06/2025 7:44 AM CDT 04/06/2025 7:44 AM CDT Narrative [facility] - 04/07/2025 1:37 AM CDT FASTING:YES FASTING: YES Colleen Ray MD LAB BLOOD ORDERABLES Final Result Performing Organization Address [facility]/ZIP Co de Phone Number [facility] [address] [place] [address] * Vitamin B12 (04/06/2025 7:44 AM CDT) Vitamin B12 409 200 - 1,100 pg/mL [facility] Blood 04/06/2025 7:44 AM CDT 04/06/2025 7:44 AM CDT Narrative [facility] - 04/07/2025 1:37 AM CDT FASTING:YES FASTING: YES Colleen Ray MD LAB BLOOD ORDERABLES Final Result Performing Organization Address [facility] Co de Phone Number [facility] [address] [place] [address] * Vitamin D 25 hydroxy (04/06/2025 7:42 AM CDT) Vitamin D 25-OH 38 30 - 100 ng/mL [facility] Comment: Vitamin D Status 25-OH Vitamin D: Deficiency: <20 ng/mL Insufficiency: 20 - 29 ng/mL Optimal: > or = 30 ng/mL For 25-OH Vitamin D testing on patients on D2-supplementation and patients for whom quantitation of D2 and D3 fractions is required, the Quest[facility]ure[facility](TM) 25-OH VIT D, (D2,D3), LC/MS/MS is recommended: order code 19579 (patients >2yrs). See Note 1 Note 1 For additional information, please refer to http://education.Replicon/faq/MGZ946 (This link is being provided for informational/ educational purposes only.) Blood 04/06/2025 7:42 AM CDT 04/06/2025 7:42 AM CDT Narrative [facility] - 04/07/2025 1:09 PM CDT FASTING:YES FASTING: YES Colleen Ray MD LAB BLOOD ORDERABLES Final Result Performing Organization Address [facility]/ZIP Co de Phone Number [facility] [address] [place] [address] * TSH (04/06/2025 7:42 AM CDT) TSH 1.12 mIU/L [facility] Comment: Reference Range > or = 20 Years 0.40-4.50 Ranges First trimester 0.26-2.66 Second trimester 0.55-2.73 Third trimester 0.43-2.91 Blood 04/06/2025 7:42 AM CDT 04/06/2025 7:42 AM CDT Narrative [facility] - 04/07/2025 1:09 PM CDT FASTING:YES FASTING: YES Colleen Ray MD LAB BLOOD ORDERABLES Final Result Performing Organization Address [facility]/ZIP Co de Phone Number [facility] [address] [place] [address] * T4, free (04/06/2025 7:42 AM CDT) Free T4 1.0 0.8 - 1.8 ng/dL [facility] Blood 04/06/2025 7:42 AM CDT 04/06/2025 7:42 AM CDT Narrative [facility] - 04/07/2025 1:09 PM CDT FASTING:YES FASTING: YES Colleen Ray MD LAB BLOOD ORDERABLES Final Result Performing Organization Address [facility] de Phone Number [facility] [address] [place] [address] * PTH (04/06/2025 7:42 AM CDT) Parathyroid hormone, intact 67 16 - 77 [...] MD LAB BLOOD ORDERABLES Final Result [facility] [address] [address] * (ABNORMAL) Lipid panel (04/06/2025 7:42 AM CDT) Cholesterol 266(H) <200 mg/dL [facility] HDL 37(L) > OR = 50 mg/dL [facility] Triglycerides 240(H) <150 mg/dL [facility] Comment: If a non-fasting specimen was collected, consider repeat triglyceride testing on a fasting specimen if clinically indicated. Rosio et al. J. of Clin. Lipidol. 2015;9:129-169. LDL 185(H) mg/dL (calc) [facility] Comment: Reference range: <100 Desirable range <100 mg/dL for primary prevention; <70 mg/dL for patients with CHD or diabetic patients with > or = 2 CHD risk factors. LDL-C is now calculated using the Kurtis-Gem calculation, which is a validated novel method providing better accuracy than the Friedewald equation in the estimation of LDL-C. Kurtis KRISHNA et al. CRYSTAL. 2013;310(19): 9627-8654 (http://education.Replicon/faq/PLV515) Chol/HDL ratio 7.2(H) <5.0 (calc) [facility] Non-HDL, (LDL+VLDL) 229(H) <130 mg/dL (calc) [facility] Comment: Non-HDL level > or = 220 [...] LAB BLOOD ORDERABLES Final Result [facility] [address] [address] * Comprehensive metabolic panel (04/06/2025 7:42 AM CDT) Pathologist [facility] Glucose 99 65 - 99 mg/dL [facility] [...] Ray MD LAB BLOOD ORDERABLES Final Result [facility] [address] [phone] * Screening Mammogram Bilateral W Jair (01/24/2025 2:19 PM CDT) Anatomical Region Laterality Modality Breast Bilateral Mammography Narrative 01/25/2025 12:49 PM CDT Mammogram Technique: Bilateral Digital Breast Tomosynthesis, Bilateral C-view 2D Screening mammogram. Views obtained: bilateral craniocaudal and bilateral mediolateral oblique. Computer Aided Detection was performed. Mammogram Findings: The present examination has been compared to prior imaging studies performed at [facility] on 02/05/2023 and 12/28/2023, and at [facility] on 06/26/2015, 09/09/2016, 09/13/2017, 12/26/2018 and 10/21/2020. [...] to prior imaging studies performed at [facility] on 02/05/2023 and 12/28/2023, and at [facility] on 06/26/2015, 09/09/2016, 09/13/2017, 12/26/2018 and 10/21/2020. [...] HPV, reflex to Genotyping (12/17/2022 3:28 PM ELECTRIC CAR OPERATOR) Thin prep (Pap test) 12/17/2022 3:28 PM ELECTRIC CAR OPERATOR 12/20/2022 2:18 PM CDT Narrative PATHOLOGY [facility] - 12/26/2022 1:35 PM CDT [facility] results best viewed via link to PDF [address] [address] Tele: Sharon Uribe MD - Catering Truck Operator CYTOLOGY REPORT Note to Patients: This report [...] the details. Patient Name: FARHAD YBARRA Address: [address] [place] [address] Gender: F : 1975 (Age: 47) Service: Location: N : [id number] Hospital #: [id number] Patient Type: [facility] SPECIMEN Taken: 12/17/2022 Reported: 12/26/2022 Physician(s): YVETTE Pate FINAL DIAGNOSIS: Specimen Type: A. - ThinPrep Pap and HPV w/ reflex Genotyping: Statement of Specimen Adequacy: Source: Cervical/Endocervical - Satisfactory for interpretation - Endocervical/Transformation zone component absent or insufficient - Case screened using computer assisted imaging technology and manually re- screened by a assistant men's soccer coach. General Categorization: - Negative for intraepithelial lesion or malignancy j/12/26/2022 13:35JoPRISCILLA Reilly(ASCP), [facility] Report Reviewed and Electronically Signed By PRISCILLA Velazquez([facility]), [facility]er[facility] Data Follow A; G0145 DIAGNOSIS COMMENT: Ancillary [...] NP LAB CYTOLOGY ORDERABLE S Final Result PATHOLOGY [facility] Laboratory Receiving [address] [place] [address] * (ABNORMAL) Serum Hepatitis C ab (06/08/2013 8:25 AM CDT) HCV ab REACTIVE( A) NON-REACT KECIA HISTORICAL RESULTS Hepatitis signal to cutoff ratio 1.66(H) <1.00 HISTORICAL RESULTS Comment: The patient's sample tests reactive with a low S/CO ratio: > or = 1.0 and <8.0. The CDC recommends supplemental testing. HCV RNA, Quantitative Real Time PCR (99388), which requires a fresh frozen sample be drawn and submitted, is suggested for this purpose. Serum 06/08/2013 8:25 AM CDT Narrative HISTORICAL RESULTS - 06/09/2013 5:00 AM CDT Test performed at [facility] [address] [place] [address] Director: AXEL KC DO,MPH Historical Provider LAB BLOOD ORDERABLES Kala swanson Result HISTORICAL RESULTS from Last 3 Months or Most Recently Relevant to Health Maintenance Insurance IDPA [facility] [place] [address] [facility] Advance Directives For more information, please contact: [phone] * Full Code (Latest Code Status on File) Date Activated Date Inactivated Comments 04/16/2025 12:24 PM 04/16/2025 6:06 PM Care Teams Livestock Dealer Relationship Specialty Start Date End Date Prakash Velasquez MD PCP - General 05/27/09
--- OUTSIDE RECORDS SUMMARY | 2025-07-06 11:16 | XMS_ITS | Clinical Summary ---
Author Organization [facility] Address [address] [place] [address] Care Team Providers Care Pig Handler Name Role Phone Prakash Velasquez MD Primary Care Provider + [phone] Allergies Active Allergy Reactions Criticality Noted Date [...] tablet lorazepam 0.5 mg tablet 8 Active HYDROcodone-kelise taminophen (NORCO) 7.5-325 mg Tablet TK 1 [...] mouth daily. 45 Tablet 3 5 Active EPINEPHrine (EPIPEN) 0.3 mg/0.3 mL Auto-Injector 5 Active Active Problems Problem Noted Date Diagnosed Date Snoring 10/16/2022 Iron deficiency anemia 12/04/2020 Antiphospholipid antibody syndrome 09/18/2019 Encounters Date Type Department Care Team Description 07/05/2025 Orders Only [facility] Oncology and Hematology - [address] [place] [address] Santosh Loyd MD 07/03/2025 Abstract [facility] Oncology and Hematology - [address] [place] [address] Santosh Loyd MD 07/03/2025 Orders Only [facility] Oncology and Hematology - [address] [place] [address] Santosh Loyd MD 07/02/2025 10:00 AM CDT Office Visit [facility] Oncology and Hematology - [address] [place] [address] Santosh Loyd MD Chronic anemia (Primary Dx); Iron overload 06/29/2025 Orders Only [facility] Oncology and Hematology - [address] [place] [address] Santosh Loyd MD Iron deficiency anemia, unspecified iron deficiency anemia type (Primary Dx) 06/27/2025 External Device Data STL ABSTRACTION Provider, Abstract 06/26/2025 External Device Data STL ABSTRACTION Provider, Abstract 05/15/2025 External Device Data STL ABSTRACTION Provider, Abstract 05/14/2025 Results Follow-Up [facility] Heart and Vascular - [address] [place] [address] Jade Ho LIPID PANEL 05/14/2025 Orders Only [facility] Heart and Vascular - [address] [place] [address] Provider, Abstract 04/25/2025 External Device Data STL ABSTRACTION Provider, Abstract 04/25/2025 External Device Data STL ABSTRACTION Provider, Abstract 04/12/2025 Results Follow-Up [facility] Heart and Vascular - [address] [place] [address] Wendy Lopez, LOSS PREVENTION AND SAFETY MANAGER ECHO COMPLETE - CONTRAST AND STRAIN IF INDICATED 04/11/2025 2:43 PM CDT - 04/11/2025 11:59 PM CDT Hospital Encounter [facility] Testing [place] [address] [place] [address] Wendy Lopez, LOSS PREVENTION AND SAFETY MANAGER Discharge Disposition: Home or Self Care 04/10/2025 Telephone [facility] Oncology and Hematology - [address] [place] [address] Santosh Loyd MD Lab/Colonoscopy Questions 04/05/2025 Telephone [facility] Heart and Vascular - [address] [place] [address] Ernesto Flores MD colonoscopy question/clearance from Last [...] Sign Reading Time Taken Comments Blood Pressure 168/100 07/02/2025 9:57 AM CDT Pulse 90 07/02/2025 9:55 AM CDT Temperature 36.2 C (97.1 F) 07/02/2025 9:55 AM CDT Respiratory Rate 15 07/02/2025 9:55 AM CDT Oxygen Saturation 98% 07/02/2025 9:55 AM CDT Inhaled Oxygen Concentration - - Weight 77.8 kg (171 lb 9.6 oz) 07/02/2025 9:55 A M CDT Height 160 cm (5' 3) 03/19/2025 10:27 AM CDT Body Mass Index 30.4 03/19/2025 10:27 AM CDT Plan of Treatment Upcoming Encounters Date Type Department Care Team (Late st Contact Info) Description 07/09/2025 4:30 PM CDT Telephone Check Up [facility] Oncology and Hematology - [address] [facility] [address] [place] [address] Santosh Loyd MD [address] [facility] [address] [place] [address] 03/25/2026 10:30 AM CDT Office Visit [facility] Heart and Vascular - [address] [facility] 300 [address] [facility] 300 [place] [address] [place] [address] [address] Health Maintenance Due Date Last Done Comments Pre-Diabetes and Diabetes Screening 1975 DTAP/TDAP/TD VACCINES (1 - Tdap) 1994 HEPATITIS B VACCINES (1 of 3 - 19+ 3-dose series) 1994 ZOSTER VACCINE (1 of 2) 1994 HPV/Cotest (21-29) 1996 HPV/Cotest (30-65) 2005 FIT-DNA Q 3 years 2020 FIT/FOBT Q 1 year 2020 Flex Sig/CT Colonography Q 5 years 2020 INFLUENZA VACCINE (#1) 2025 CERVICAL CANCER SCREENING 12/17/2025 PAP SMEAR 12/17/2025 12/17/2022 BREAST CANCER SCREENING 01/24/2026 01/25/20, 01/24/2025, 12/28/2023, Additional history exists COLORECTAL SCREENING 04/16/2035 04/16/2025, 04/16/20 25 Colorectal Cancer Screening 04/16/2035 Procedures Procedure Name Priority Date/Time Associated Diagnosis Comments COMPREHENSIVE METABOLIC PANEL Routine 07/04/2025 10:30 AM CDT BASIC METABOLIC PANEL Routine 06/29/2025 7:47 AM CDT LIPID PANEL Routine 2025 11:41 AM CDT ECHO COMPLETE Routine 04/11/2025 4:01 PM CDT Benign hypertension Family history of atherosclerosis Heart rate fast from Last 3 Months Results * COMPREHENSIVE METABOLIC PANEL (07/04/2025 10:30 AM CDT) Blood us Santosh Loyd MD CHEMISTRY ORDERABLES Final Resu lt * BASIC METABOLIC PANEL (06/29/2025 7:47 AM CDT) Blood us Santosh Loyd MD CHEMISTRY ORDERABLES Final Resu lt * LIPID PANEL (2025 11:41 AM CDT) Blood us Abstract Provider CHEMISTRY ORDERABLES Edited Re sult - Final [facility] [address] [place] [place] [place] [address]# [id number] [address] [place] [id number] * ECHO COMPLETE - CONTRAST AND STRAIN IF INDICATED (04/11/2025 4:01 PM CDT) EJECTION FRACTION 61 INTERFACE SYSTEM 04/11/2025 3:11 PM CDT Narrative INTERFACE SYSTEM - 04/11/2025 4:49 PM CDT [facility] Testing Transthoracic Echocardiogram Patient: Kandace Ybarra Study ID: [id number] Gender: F : 1975 Age: 49 Race: CAU Height 160cm Study Date: 04/11/2025 Weight: 79.6kg Access. #: [id number] BP: 125 / 75 *Referring Physician:* Wendy Lopez Kate E *Ordering Physician:* Wendy Lopez *Teacher Of The Handicapped:* Aden Mandujano RDCS, T vice provost: Nurse: Indications: HTN. Family h/o atherosclerosis. Fast [...] PM. Prepared and Electronically Authenticated Dwayne Figueroa [id number]:49:51 Procedure Note Dwayne Figueroa MD - 04/11/2025 [facility] Testing Transthoracic Echocardiogram Patient: Kandace Ybarra Study ID: [id number] Gender: Pancho : 1975 Age: 49 Race: SUZY Height 160cm Study Date: 04/11/2025 Weight: 79.6kg Access. #: [id number] BP: 125 / 75 *Referring Physician:* Wendy Lopez KateE *Ordering Physician:* Wendy Lopez *Teacher Of The Handicapped:* Aden Mandujano RDCS, [facility] vice provost: Nurse: Indications: HTN. Family h/o atherosclerosis. Fast [...] values inside specified reference range. Procedure data: [facility] Comparison was made to the study of [...] PM. Prepared and Electronically Authenticated Dwayne Figueroa [id number]:49:51 us Wendy Lopez LOSS PREVENTION AND SAFETY MANAGER US ORDERABLES Final Result INTERFACE SYSTEM Refer to clinic/hospital department from Last 3 [place] [address] [place] [employer] [place] [address] [facility] Care Teams Pig Handler Relationship Specialty Start Date End Date Prakash Velasquez MD [address] [place], [place] [id number] PCP - General Family Practice 07/21/19
--- OUTSIDE RECORDS SUMMARY | 2025-07-06 11:16 | XMS_ITS | Clinical Summary ---
Author Organization [facility] Address [address] [place] [address] Care Team Providers Care Battery Stacker Name Role Phone Unavailable Primary Care Provider Unavailabl e Source Comments [facility],non-owned Affiliates and Associated Physician Practices is amultiple site organization consisting of ambulatory clinics and hospital sitesin [place], [place], [place] and [place]. This disclosure is being madepursuant to the Care Everywhere program and may not contain all information available regarding this patient. 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
--- OUTSIDE RECORDS SUMMARY | 2025-07-06 11:16 | XMS_ITS | Encounter Summary ---
Author Organization [facility] [employer] [facility] Address [address] [place] [address] Care Team Providers Care Section Leader Screen Printing Name Role Phone Prakash Velasquez MD Primary Care Provider + [phone] Reason for Visit * Reason Onset Date Comments covid/hypertension 12/02/2023 Encounter Details Date Type Department Care Team (Late st Contact Info) Description 12/02/[address] [facility] Oncology and Hematology - [address] [facility] [address] [place] [address] Santosh Loyd MD [address] [facility] [address] [place] [address] covid/hypertension Social History Tobacco Use [...] hyptertension and is onmedicine prescribed by her construction technician. I asked her if she followed them at home and she said yes yesterday it was 138/82. She says she has had symptoms of feeling off since having covid, and is nowworried about her having a blood clot because sometimes her blood pressure will be high. I advised pt to call her pcp or construction technician and try to get in with them to discuss her hypertension issues. She is also worried about having POTS but has upcoming apt for this. HANDLER documented in this encounter Plan of Treatment Upcoming Encounters Date Type Department Care Team (Late st Contact Info) Description 07/09/2025 4:30 PM CDT Telephone Check Up [facility] Oncology and Hematology - [address] [facility] [address] [place] [address] Santosh Loyd MD [address] [facility] [address] [place] [address] 03/25/2026 10:30 AM CDT Office Visit [facility] Heart and Vascular - [address] [facility] 300 [address] [facility] 300 [place] [address] [place] [address] [facility] [address] [place] [address] documented as of this encounter Visit Diagnoses Not on filedocumented in this encounter Care Teams Section Leader Screen Printing Relationship Specialty Start Date End Date Prakash Velasquez MD [address] [place] [address] PCP - General Family Practice 07/21/19 documented as of this encounter
--- OUTSIDE RECORDS SUMMARY | 2025-07-06 11:16 | XMS_ITS | Patient Health Record ---
Author Organization [facility] Address [address] [facility] [address] [place] [address] Care Team Providers Care Sweatband Shaper Name Role Phone Prakash Velasquez MD Primary Care Provider Unavail able Mattie Morris Unavailable [phone] Allergies Allergen (clinical drug ingredient) Drug/Non Drug [...] date:12/31/2024 12:18:48 PM Interpretation:Lab Result Generalized Performing Lab:[facility] , [address] [facility]. [facility] [address] Notes/Report: PAOLA, Qual Negative Interpretive Data Normal [...] last revised on 2020. Testing performed by: [facility], [address] [facility] [place]., [address] Anti-CCP (Cyclic Citrullinat ed Peptide Ab) Reviewed date:12/29/2024 10:41:02 AM Interpretation: Performing Lab:[facility] , [address] [place] [address]. [facility] [address] Notes/Report: CCP Ab <0.5 <=2.9 units/mL Interpretive data Negative: <3 units/mL Positive: > or equal to 3 units/mL Current interpretive data was last revised on 2017. C Reactive Protein Reviewed date:12/28/2024 07:48:18 PM Interpretation: Performing Lab:[facility] , [address] [place] [address]. [facility] [address] Notes/Report: C-Reactive Protein <3.0 <=10.0 mg/L CBC w auto diff Reviewed date:12/28/2024 07:48:18 PM Interpretation: Performing Lab:[facility] , [address] [place] [address]. [facility] [address] Notes/Report: WBC 4.5 3.8-9.9 K/cumm Hgb 11.4 11.9-15.5 g/dL Hct 36.7 35.6-45.5 % Platelet Ct 206 150-400 K/cumm MPV 10.4 9.1-12.3 fL RBC 4.51 3.90-5.20 M/cumm MCV 81.4 81.3-96.4 fL MCH 25.3 27.1-33.3 pg MCHC 31.1 32.3-35.7 g/dL RDW CV 13.4 11.1-14.9 % RDW SD 39.5 35.7-48.1 fL NRBC Abs Auto 0.00 0.00-0.01 K/cumm Complement C3 Reviewed date:12/28/2024 07:48:18 PM Interpretation: Performing Lab:[facility] , [address] [place] [address]. [facility] [address] Notes/Report: Complement, C3 146 90-180 mg/dL Complement C4 Reviewed date:12/28/2024 07:48:18 PM Interpretation: Performing Lab:[facility] , [address] [place] [address]. [facility] [address] Notes/Report: Complement, C4 25 10-40 mg/dL Comprehensive metabolic pane l (CMP) Reviewed date:12/28/2024 07:48:18 PM Interpretation: Performing Lab:[facility] , [address] [place] [address]. [facility] [address] Notes/Report: Sodium 139 135-145 mmol/L Plasma Potassium [...] Kinase Reviewed date:12/28/2024 07:48:18 PM Interpretation: Performing Lab:[facility] , [address] [place] [address]. [facility] [address] Notes/Report: Total CK 96 30-200 Units/L Rheumatoid Factor Reviewed date:12/28/2024 07:48:18 PM Interpretation: Performing Lab:[facility] , [address] [place] [address]. [facility] [address] Notes/Report: RF, Lalo 11 <=15 IUnits/mL Sed Rate Reviewed date:12/28/2024 07:48:18 PM Interpretation: Performing Lab:[facility] , [address] [place] [address]. [facility] [address] Notes/Report: ESR 16 1-20 mm/hr UA, reflex Micro to Culture Reviewed date:12/28/2024 07:48:18 PM Interpretation: Performing Lab:[facility] , [address] [place] [address]. [facility] [address] Notes/Report: Color, Ur Yellow Yellow Clarity, Ur [...] tendency for uric acid stone formation. Source: [employer] Current Interpretive Data was last revised on [...] Automated Reviewed date:12/28/2024 07:48:18 PM Interpretation: Performing Lab:[facility] , [address] [place] [address]. [place] [address] Notes/Report: Neut Abs 2.6 1.5-6.5 K/cumm ImmGran Abs 0.0 0.0-0.1 K/cumm Lymphocyte Abs 1.4 0.8-3.3 K/cumm Howell Abs 0.3 0.2-0.8 K/cumm Eos Abs 0.1 [...] Interpretive Data was last revised on 2018. Howell Pct 7.5 Interpretive Data Percent cell count [...] Sites) Reviewed date:12/28/2024 07:48:18 PM Interpretation: Performing Lab:[facility] , [address] [facility] [place] [address] Notes/Report: WBC, Ur 0-5 0-5 /HPF RBC, Ur 11-20 0-2 /HPF Epithl Squam, Ur 1-5 0-5 /HPF Culture reflex comment See Below Refle x conditions for urine culture (WBC >10) not met. Mucous Ur Present eGFR Reviewed date:12/28/2024 07:48:18 PM Interpretation: Performing Lab:[facility] , [address] [facility]. 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) Active confirmed Problem Fibromyalgia (586356603) Fibromyalgia (M79.7) Active confirmed Problem Neck pain (13028606) Neck pain, musculoskeletal (M54.2) Active confirmed Problem Mild or unspecified pre-eclampsia, with delivery (642.41) Active confirmed Problem Abnormal materna l glucose tolerance, complicating , childbirth, or the puerperium (648.8) Active confirmed Problem Hypothyroidism (84147794) Hypothyroidism, unspecified (E03.9) 12/24/19 10 Active confirmed Problem Pulmonary Embolism (33659600) Other pulmonary embolism without acute cor pulmonale [...] 12/28/2024 Encounters Encounter Location Date Provider Diagnosis [facility] [address] [place] [address] 08/02/2024 Mattie Du Other rheumatoid art hritis with rheumatoid factor of multiple sites M05.89 ; Fibromyalgia M79.7 and Neck pain, musculoskeletal M54.2 [facility] [address] [place] [address] 12/28/2024 Mattie Du Other rheumatoid art hritis with rheumatoid factor of multiple sites M05.89 ; Fibromyalgia M79.7 and Neck pain, musculoskeletal M54.2 [facility] [address], [place] [address] 02/27/2025 Mattie Du [facility] [address] [place] [address] 08/09/2024 Mattie Du [facility] [address] [place] [address] 12/28/2024 Mattie Du [facility] [address] [place] [address] 01/29/2025 Mattie Du Other rheumatoid art hritis with rheumatoid factor of multiple sites M05.89 [facility] [address] [place] [address] 06/04/2025 Mattie Du Other rheumatoid art hritis with rheumatoid factor of multiple sites M05.89 [facility] [address] [place] [address] 06/05/2025 Mattie Du Other rheumatoid art hritis [...] Morris, 07/23 01:15:00 PM, [address] [facility] [address], [place], [address], Insurance Providers Payer Name Payer Address Payer Phone Subscriber Number Group Number Insured Name Patient Relationship to Insured Coverage Start Date Coverage End Date Char [address] ANTONIETA Becerril [id number] Kandace Ybarra Self - patient is the insured [facility] [address] [place] [address] [phone] [id number] Kandace Ybarra Self - patient is the insured 4 [employer] [address] ANTONIETA Becerril [id number] [phone] [id number] Kandace Ybarra Self - patient is the [...]
--- OUTSIDE RECORDS SUMMARY | 2025-07-06 11:16 | XMS_ITS | Encounter Summary ---
Author Organization [facility] [employer] [facility] Address [address] [place] [address] Care Team Providers Care Propulsion Engineer Name Role Phone Prakash Velasquez MD Primary Care Provider + [phone] Encounter Details Date Type Department Care Team (Late Contact Info) Description 07/05/2025 Orders Only [facility] Oncology and Hematology [address] [place] [address] Santosh Loyd MD [address] [employer] [place] [address] Social History Tobacco Use Types Packs/Day [...] 07/09/2025 4:30 PM CDT Telephone Check Up [facility] Oncology and Hematology [address] [place] [address] Santosh Loyd MD [address] [place] [address] 03/25/2026 10:30 AM CDT Office Visit [facility] Heart and Vascular - [address] [facility] 300 [address] [facility] [address] [place] [address] [place] [address] [facility] [address] [place] [address] documented as of this encounter Procedures Procedure Name Priority Date/Time Associated Diagnosis Comments COMPREHENSIVE METABOLIC PANEL Routine 07/04/2025 10:30 AM CDT documented in this encounter Results * COMPREHENSIVE METABOLIC PANEL (07/04/2025 10:30 AM CDT) Blood Santosh Loyd MD CHEMISTRY ORDERABLES Final Resu lt documented in this encounter Visit Diagnoses Not on filedocumented in this encounter Care Teams Propulsion Engineer Relationship Specialty Start Date End Date Prakash Velasquez MD [address] [place] [address] PCP - General Family Practice 07/21/19 documented as of this encounter
--- OUTSIDE RECORDS SUMMARY | 2025-07-06 11:16 | XMS_ITS | Patient Health Record ---
Author Organization [facility] [employer] Address [address] [facility] [address] [facility] [address] [place] [address] Care Team Providers Care Stretcher Leveler Operator Name Role Phone Jair Kelly Unavailable [phone] Reason For Referral No Information Plan Of Treatment No Information
--- OUTSIDE RECORDS SUMMARY | 2025-07-06 11:16 | XMS_ITS | Encounter Summary ---
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
--- OUTSIDE RECORDS SUMMARY | 2025-07-06 11:16 | XMS_ITS | Encounter Summary ---
Author Organization [facility] Address [address] [place] [address] Care Team Providers Care Laborer [employer] Name Role Phone Prakash Velasquez MD Primary Care Provider + [phone] Reason for Visit * Reason Onset Date Comments Lipids 05/14/2025 Encounter Details Date Type Department Care Team (Late st Contact Info) Description 05/14/2025 Results Follow-Up [facility] Heart and Vascular - [address] [facility] [address] [address] [facility] [address] [place] [address] Jade Ho LIPID PANEL Social [...] 07/09/2025 4:30 PM CDT Telephone Check Up [facility] Oncology and Hematology - Andreas [address] [facility] 200 [place] [address] Santosh Loyd MD [address] [facility] [address] [place] [address] 03/25/2026 10:30 AM CDT Office Visit [facility] Heart and Vascular - [address] [facility] [address] [facility] 300 [place] [address] [place] [address] [facility] 300 [place] [address] documented as of this encounter Visit Diagnoses Not on filedocumented in this encounter Care Teams Laborer [employer] Relationship Specialty Start Date End Date Prakash Velasquez MD [address] [place] [address] PCP - General Family Practice 07/21/19 documented as of this encounter
== END 2025-07-06 11:10 | disposition home or self-care (01) ==
PROVIDERS: PCP Family Medicine
DX: M47.812 Spondylosis without myelopathy or radiculopathy, cervical region (principal)
CPT/HCPCS: 72050

== ENCOUNTER 2025-07-11 12:19 | Outpatient (CLI) | payer OTHER, MEDICAID, SELFPAY ==
--- NOTE | ~2025-07-11 | US_ITS ---
Clinical history:Irregular menstruation EXAM:Ultrasound pelvis complete with transvaginal TECHNIQUE:Multiple static grayscale images and color Doppler images were obtained of the pelvis Comparisons:None available. FINDINGS: Uterus measures 8.9 x 5.0 x 5.3 cm. Uterus is heterogeneous. Endometrial stripe measures 9 mm which is normal for a patient who is premenopausal Small to moderate amount of nonspecific fluid in the endometrial cavity. Right ovary was not visualized. Left ovary measures 2.5 x 1.9 x 2.2 cm with vascular flow. There is a 1.3 x 0.8 x 1.7 cm anechoic structure in the left ovary without internal color Doppler flow possibly an ovarian cyst. There are nabothian cysts in the cervix. IMPRESSION: 1. Small to moderate amount of nonspecific fluid in the endometrial cavity. 2. Uterus is heterogeneous. 3. There is a 1.7 cm cystic structure in the left ovary possibly an ovarian cyst. A follow pelvic ultrasound in 3 months is recommended. 4. Right ovary was not visualized. If symptoms persist or worsen, consider a short-term follow-up pelvic ultrasound study or pelvic MRI imaging for further assessment. Reviewed, dictated and finalized at location Q. IMPRESSION: 1. Small to moderate amount of nonspecific fluid in the endometrial cavity. 2. Uterus is heterogeneous. 3. There is a 1.7 cm cystic structure in the left ovary possibly an ovarian cys t. A follow pelvic ultrasound in 3 months is recommended. 4. Right ovary was not visualized. If symptoms persist or worsen, consider a short-term follow-up pelvic ultrasoun d study or pelvic MRI imaging for further assessment.
--- OUTSIDE RECORDS SUMMARY | 2025-07-11 12:24 | XMS_ITS | Encounter Summary ---
Author Organization [facility] [employer] [facility] Address [address] [place] [address] Care Team Providers Care Computer Lab Assistant Name Role Phone Prakash Velasquez MD Primary Care Provider + [phone] Encounter Details Date Type Department Care Team (Late Contact Info) Description 07/05/2025 Orders Only [facility] Oncology and Hematology [address] [place] [address] Santosh Loyd MD [address] [place] [address] Social History Tobacco Use Types Packs/Day [...] Department Care Team (Late Contact Info) Description 07/18/2025 4:35 PM CDT Telephone Check Up [facility] Oncology and Hematology [address] [place] [address] Santosh Loyd MD [address] [place] [address] 03/25/2026 10:30 AM CDT Office Visit [facility] Heart and Vascular - [address] [facility] 300 [address] [facility] 300 [place] [address] [place] [address] [facility] 300 [place] [address] documented as of this encounter Procedures Procedure Name Priority Date/Time Associated Diagnosis Comments COMPREHENSIVE METABOLIC PANEL Routine 07/04/2025 10:30 AM CDT documented in this encounter Results * COMPREHENSIVE METABOLIC PANEL (07/04/2025 10:30 AM CDT) Blood Santosh Loyd MD CHEMISTRY ORDERABLES Final Resu lt documented in this encounter Visit Diagnoses Not on filedocumented in this encounter Care Teams Computer Lab Assistant Relationship Specialty Start Date End Date Prakash Velasquez MD [address] [place] [address] PCP - General Family Practice 07/21/19 documented as of this encounter
--- OUTSIDE RECORDS SUMMARY | 2025-07-11 12:24 | XMS_ITS | Clinical Summary ---
Author Organization [facility] Address [address] [facility] [place] [address] Care Team Providers Care Daycare Director Name Role Phone Prakash Velasquez MD Primary Care Provider + [phone] Allergies Active Allergy Reactions Criticality Noted Date [...] Encounters Date Type Department Care Team Description 07/10/2025 Orders Only [facility] Oncology and Hematology - Andreas [address] [place] [address] Santosh Loyd MD 07/05/2025 Orders Only [facility] Oncology and Hematology - [address] [place] [address] Santosh Loyd MD 07/03/2025 Abstract [facility] Oncology and Hematology - [address] [place] [address] Santosh Loyd MD 07/03/2025 Orders Only [facility] Oncology and Hematology - Andreas [address] [place] [address] Santosh Loyd MD 07/02/2025 10:00 AM CDT Office Visit [facility] Oncology and Hematology [facility] [address] [place] [address] Santosh Loyd MD Chronic anemia (Primary Dx); Iron overload 06/29/2025 Orders Only [facility] Oncology and Hematology [facility] [address] [place] [address] Santosh Loyd MD Iron deficiency anemia, unspecified iron deficiency anemia type (Primary Dx) 06/27/2025 External Device Data STL ABSTRACTION Provider, Abstract 06/26/2025 External Device Data STL ABSTRACTION Provider, Abstract 05/15/2025 External Device Data STL ABSTRACTION Provider, Abstract 05/14/2025 Results Follow-Up [facility] Heart and Vascular - [address] [facility] [address] [address] [facility] [address] [place] [address] Jade Ho LIPID PANEL 05/14/2025 Orders Only [facility] Heart and Vascular - [address] [facility] [address] [place] [address] Provider, Abstract 04/25/2025 External Device Data STL ABSTRACTION Provider, Abstract 04/25/2025 External Device Data STL ABSTRACTION Provider, Abstract 04/12/2025 Results Follow-Up [facility] Heart and Vascular - [address] [facility] [address] [place] [address] Wendy Lopez FNP ECHO COMPLETE - CONTRAST AND STRAIN IF INDICATED 04/11/2025 2:43 PM CDT - 04/11/2025 11:59 PM CDT Hospital Encounter [facility] [address] [place] [address] Wendy Lopez FNP Discharge Disposition: Home or Self Care 04/10/2025 Telephone [facility] Oncology and Hematology [facility] [address] [place] [address] Santosh Loyd MD Lab/Colonoscopy Questions from Last 3 Months Family History Medical [...] Care Team (Late st Contact Info) Description 07/18/2025 4:35 PM CDT Telephone Check Up [facility] Oncology and Hematology - Andreas [address] [facility] 200 [place] [address] Santosh Loyd MD [address] [facility] [address] [place] [address] 03/25/2026 10:30 AM CDT Office Visit [facility] Heart and Vascular - [address] [place] [address] [facility] 300 [place] [address] [place] [address] [facility] 300 [place] [address] Health Maintenance Due Date Last Done Comments [...] history exists COLORECTAL SCREENING 04/16/2035 04/16/2025, 04/16/20 Colorectal Cancer Screening 04/16/2035 Procedures Procedure Name Priority Date/Time Associated Diagnosis Comments HEREDITARY HEMOCHROMATOSIS DNA MUTATION ANALYSIS Routine 07/04/2025 1:36 PM CDT COMPREHENSIVE METABOLIC PANEL Routine 07/04/2025 10:30 AM CDT BASIC METABOLIC PANEL Routine 06/29/2025 7:47 AM CDT LIPID PANEL Routine 2025 11:41 AM CDT ECHO COMPLETE Routine 04/11/2025 4:01 PM CDT Benign hypertension Family history of atherosclerosis Heart rate fast from Last 3 Months Results * HEREDITARY HEMOCHROMATOSIS DNA MUTATION ANALYSIS (07/04/2025 1:36 PM CDT) Santosh Loyd MD CHEMISTRY ORDERABLES COM Final Result * COMPREHENSIVE METABOLIC PANEL (07/04/2025 10:30 AM CDT) Blood Santosh Loyd MD CHEMISTRY ORDERABLES Final Resu lt * BASIC METABOLIC PANEL (06/29/2025 7:47 AM CDT) Blood Santosh Loyd MD CHEMISTRY ORDERABLES Final Resu lt * LIPID PANEL (2025 11:41 AM CDT) Blood Abstract Provider CHEMISTRY ORDERABLES Edited Re sult - Final [facility] [address] [place] [address]# [id number] [address] [place] [id number] * ECHO COMPLETE - CONTRAST AND STRAIN IF INDICATED (04/11/2025 4:01 PM CDT) EJECTION FRACTION 61 INTERFACE SYSTEM 04/11/2025 3:11 PM CDT Narrative INTERFACE SYSTEM - 04/11/2025 4:49 PM CDT [facility] Heart and Vascular Testing Transthoracic Echocardiogram Patient: Kandace Ybarra Study ID: [id number] Gender: F : 1975 Age: 49 Race: CAU Height 160cm Study Date: 04/11/2025 Weight: 79.6kg Access. #: [id number] BP: 125 / 75 *Referring Physician:* Wendy Lopez Kate E *Ordering Physician:* Wendy Lopez *Terminal Press Operator:* Aden Mandujano, [facility], T hr analyst: Nurse: Indications: HTN. Family h/o atherosclerosis. Fast [...] PM. Prepared and Electronically Authenticated Dwayne Figueroa [id number] Procedure Note Dwayne Figueroa MD - 04/11/2025 [facility] Transthoracic Echocardiogram Patient: Kandace Ybarra Study ID: [id number] Gender: F : 1975 Age: 49 Race: [facility] Height 160cm Study Date: 04/11/2025 Weight: 79.6kg Access. #: [id number] BP: 125 / 75 *Referring Physician:* Wendy Lopez KateE *Ordering Physician:* Wendy Lopez *Terminal Press Operator:* Aden Mandujano RDCS, T hr analyst: Nurse: Indications: HTN. Family h/o atherosclerosis. Fast [...] PM. Prepared and Electronically Authenticated Dwayne Figueroa [id number] Wendy Lopez [facility] US ORDERABLES Final Result INTERFACE SYSTEM Refer to clinic/hospital department from Last [address] [place] [address] [employer]SA [place] [facility] [place] [address] [facility] [address] [place] [address] Care Teams Daycare Director Relationship Specialty Start Date End Date Prakash Velasquez MD [address] [place] [address] PCP - General Family Practice 07/21/19
--- OUTSIDE RECORDS SUMMARY | 2025-07-11 12:24 | XMS_ITS | Encounter Summary ---
Author Organization [facility] [employer] [facility] Address [address] [place] [address] Care Team Providers Care Wave Soldering Machine Operator Name Role Phone Prakash Velasquez MD Primary Care Provider + [phone] Reason for Visit * Reason Onset Date Comments covid/hypertension 12/02/2023 Encounter Details Date Type Department Care Team (Late st Contact Info) Description 12/02/2023 Telephone [facility] Oncology and Hematology - Andreas [address] [facility] 200 [place] [address] Santosh Loyd MD [address] [facility] [address] [place] [address] covid/hypertension Social History Tobacco Use [...] hyptertension and is onmedicine prescribed by her rn infusion. I asked her if she followed them at home and she said yes yesterday it was 138/82. She says she has had symptoms of feeling off since having covid, and is nowworried about her having a blood clot because sometimes her blood pressure will be high. I advised pt to call her pcp or rn infusion and try to get in with them to discuss her hypertension issues. She is also worried about having POTS but has upcoming apt for this. BAND MAKER documented in this encounter Plan of Treatment Upcoming Encounters Date Type Department Care Team (Late st Contact Info) Description 07/18/2025 4:35 PM CDT Telephone Check Up [facility] Oncology and Hematology - Andreas [address] [facility] 200 [place] [address] Santosh Loyd MD [address] [facility] [address] [place] [address] 03/25/2026 10:30 AM CDT Office Visit [facility] Heart and Vascular - [address] [facility] 300 [address] [facility] 300 [place] [address] [place] [address] [facility] 300 [place] [address] documented as of this encounter Visit Diagnoses Not on filedocumented in this encounter Care Teams Wave Soldering Machine Operator Relationship Specialty Start Date End Date Prakash Velasquez MD [address] [place] [address] PCP - General Family Practice 07/21/19 documented as of this encounter
--- OUTSIDE RECORDS SUMMARY | 2025-07-11 12:24 | XMS_ITS | Encounter Summary ---
Author Organization [facility] Address [address] [place] [address] Care Team Providers Care Floor Clerk Name Role Phone Prakash Velasquez MD Primary Care Provider + [phone] Reason for Visit * Reason Onset Date Comments Lipids 05/14/2025 Encounter Details Date Type Department Care Team (Late st Contact Info) Description 05/14/2025 Results Follow-Up [facility] Heart and Vascular - [address] [facility] [address] [facility] [address] [place] [address] Jade Ho LIPID PANEL Social [...] 07/18/2025 4:35 PM CDT Telephone Check Up [facility] Oncology and Hematology - Andreas [address] [facility] 200 [place] [address] Santosh Loyd MD [address] [facility] [address] [place] [address] 03/25/2026 10:30 AM CDT Office Visit [facility] Heart and Vascular - [address] [facility] 300 [address] [facility] 300 [place] [address] [place] [address] [facility] 300 [place] [address] documented as of this encounter Visit Diagnoses Not on filedocumented in this encounter Care Teams Floor Clerk Relationship Specialty Start Date End Date Prakash Velasquez MD [address] [place] [address] PCP - General Family Practice 07/21/19 documented as of this encounter
--- OUTSIDE RECORDS SUMMARY | 2025-07-11 12:24 | XMS_ITS | Clinical Summary ---
Author Organization [facility] Address [address] [facility] [address] [place] [address] Phone Care Team Providers Care All Terrain Vehicle Racer Name Role Phone Prakash Velasquez MD Primary Care Provider [phone] Allergies Active Allergy Reactions Criticality Noted Date [...] place ambulatory referral to neuromuscular Clinic at [facility] for evaluation treatment. Assessment & Plan (03/21/2024 [...] 09/18/2021 Assessment & Plan (09/18/2021 3:45 PM SKEIN YARN DYER HELPER): Patient former patient of [facility] where she was treated for migraine without aura with topiramate and sumatriptan successfully. After running out of these medications about 6 months ago she has had recurrence of headache with similar characteristics in frequency as she had prior to the initiation at [facility].. She is requesting resumption of both medications at this time. I have resumed her topiramate at 300 mg b.i.d. and sumatriptan 100 mg b.i.d. p.r.n. as both in combination worked successfully for her in past. If she continues having ongoing appendicular numbness dizziness and lapses of awareness I would recommend further evaluation via a new neurologist and possibly staff veterinarian. Patient has been made aware that I am retiring and am unavailable to see her back to review any ordered testing,and there will be no neurologist in office for the foreseeable future upon my separation from practice. I have suggested that she follow-up with her PCP for referral to establish a new neurologist as well as a staff veterinarian for further evaluation of her new symptoms. She will follow-up with this office on an as-needed basis given my shelter. Iron deficiency anemia 12/04/2020 PMDD (premenstrual dysphoric [...] arise. Assessment & Plan (11/08/2024 9:57 AM SKEIN YARN DYER HELPER): The patient has a history of [...] Team Description 07/05/2025 2:50 PM CDT Lab [facility] Advanced Medicine [facility] Advanced Medicine (CAM) [address] [place] [address] Neuropathy; Numbness and tingling 07/05/2025 10:00 AM CDT Office Visit [facility] Medicine Neuro Muscle [address] [facility] 6th [place] [address] [place] [phone] Kip Solomon MD Neuropathy (Primary Dx); Numbness and tingling 07/03/2025 3:00 PM CDT Office Visit [facility] [address] [facility] [address] [place] [address] Riddhi Purdy NP Well woman exam with routine gynecological exam (Primary Dx); Blood in stool; Vasomotor symptoms due to menopause 05/03/2025 Telephone [facility] Metabolism and Lipid [address] [facility] [facility] [address] 13th [place] [address] [place] [address] Kael Wang RN 05/03/2025 [facility] [address] [place] [address] [place] [address] Antonieta Payan MA Prior Auth 05/02/2025 10:00 AM CDT [facility] [address] [facility] [address], [place] [address] Jaleesa Steele MD Chronic migraine without aura without status migrainosus, not intractable (Primary Dx); Small fiber neuropathy; Neuropathy 05/02/2025 [facility] [address] [place] [address] [place] [address] Amanda Cevallos RN 04/25/2025 Orders Only [facility] Medicine Endocrinology Metabolism and Lipid [address] [facility] 13th [place] [address] [place] [phone] Kael Wang, MATTY Acquired hypothyroidism (Primary Dx) 04/18/2025 Telephone [facility] Medicine Endocrinology Metabolism and Lipid [address] [facility] 5th [place] [address] [place] [phone] Kael Wang, MATTY Prior Auth (Synthroid) 04/18/2025 Orders Only [facility] Met[facility] Lipid [address] [facility] 5th [place] [address] [place] [address] Kael Wang RN Acquired hypothyroidism (Primary Dx) 04/16/2025 12:48 PM CDT Anesthesia Event [facility] Digestive Disease [place] [address] [facility] [address] [place] [address] Oleksandr Damian MD 04/16/2025 12:45 PM CDT - 04/16/2025 1:30 PM CDT Surgery [facility] [place] [address] [facility] [address] [place] [address] Kenna Verma MD PhD COLON REMOVAL SNARE 04/16/2025 11:36 AM CDT - 04/16/2025 2:01 PM CDT Hospital Encounter [facility] [address] [facility] [address] [place] [address] Kenna Verma MD PhD Positive colorectal cancer screening using Cologuard test Discharge Disposition: Discharge to home or self care 04/16/2025 Results Follow-Up [facility] [address] [facility] [address] [place] [phone] Eva Hernandez MD Colonoscopy, Surgical pathology 04/11/2025 Telephone [facility] Specialty Services [facility] [place] [address] Ailyn Brennan RN 04/10/2025 Orders Only [facility] Met[facility] and Lipid [address] [facility] 13[address] [place] [address] [place] [phone] Colleen Ray MD Elevated cortisol level (Primary Dx) 04/10/2025 Results Follow-Up [facility] Met[facility] and Lipid [address] [facility] 13[address] [place] [address] [place] [phone] Colleen Ray MD Comprehensive metabolic panel, TSH, T4, free, Additional followed-up results: 7 from Last 3 Months Surgical History Surgery Date Site/Laterality Comments OTHER SURGICAL HISTORY Pulmonary embolism, 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 OTHER SURGICAL HISTORY thyroid nodule: hemithyroidectomy for indeterminate FNA CHOLECYSTECTOMY Cholecystectomy THYROIDECTOMY Thyroidectomy COLON POLYPECTOMY 04/10/2025 - 05/10/2025 Medical History Medical History Date Comments Hx Other Medical 2005 Pulmonary embol ism, after loss Hx Other [...] C Hx Other Medical mirena insertio n -2007, removed 2012 Hx Other Medical hypothyroidism Hx Other Medical 2006 cholecystectomy Hx Other Medical 2007 blood transfusi on Hx Other Medical 2005 blood transfusi on Hx Other Medical 2006 [...] on file Legal Sex Female 11:58 PM SKEIN YARN DYER HELPER Gender Identity Not on file Sexual [...] Procedure Name Priority Date/Time Associated Diagnosis Comments VITAMIN B6 Routine 07/05/2025 12:49 PM CDT Neuropathy Numbness and tingling IMMUNOTYPING Routine 07/05/2025 12:49 PM CDT Neuropathy Numbness and tingling IMMUNOGLOBULIN FREE LIGHT CHAINS Routine 07/05/2025 12:49 [...] HCG, URINE Routine 04/16/2025 12:36 PM CDT SCREENING MAMMOGRAM BILATERAL W JAIR Schedule Routine, Read Routine (OP Routine) 01/24/2025 2:19 PM CDT Screening mammogram, encounter for PAP AND HIGH RISK HPV, REFLEX TO GENOTYPING Routine 12/17/2022 3:28 PM SKEIN YARN DYER HELPER Well woman exam Cervical cancer screening SERUM HEPATITIS C AB Routine 06/08/2013 8:25 AM CDT from Last 3 Months or Most Recently Relevant to Health Maintenance Results * Immunotyping, serum with interpretation (07/05/2025 12:49 PM CDT) Pathologist [facility] Immunosubtraction Please see comment Comment: NO PARAPROTEIN DETECTED Reviewed and signed by Rosemarie Arceo MD, PhD 07/06/2025 Blood 07/05/2025 12:4 9 PM CDT 07/05/2025 1:40 PM CDT us Amanda Moctezuma MD LAB BLOOD ORDERABLES Final Res ult [facility] Department [place] [address] * Immunoglobulin free light chains (07/05/2025 12:49 PM CDT) Pathologist [facility] [employer]/Lambda ratio [facility] 1.10 0.26 - 1.65 Comment: Interpretive Data The Binding Site FreeLite assay procedure was used. Results from different manufacturers or methods may not be comparable. Serial testing should be performed using the same methods and instrumentation. Current Interpretive Data was last revised on 2023. [employer] free light chain [facility] 1.38 0.33 - 1.94 mg/dL [facility] Comment: Interpretive Data The Binding Site FreeLite assay procedure was used. Results from different manufacturers or methods may not be comparable. Serial testing should be performed using the same methods and instrumentation. Current Interpretive Data was last revised on 2023. Lambda free light chain [facility] 1.26 0.57 - 2.63 mg/dL [facility] Comment: Interpretive Data The Binding Site FreeLite assay procedure was used. Results from different manufacturers or methods may not be comparable. Serial testing should be performed using the same methods and instrumentation. Current Interpretive Data was last revised on 2023. Blood 07/05/2025 12:4 9 PM CDT 07/05/2025 1:40 PM CDT Amanda Moctezuma MD LAB BLOOD ORDERABLES Final Res ult Performing Organization Address [facility] Co de Phone Number TOBY [facility] [place] [address] * HIV 1/2 Antibody plus p24 Antigen Blood (07/05/2025 12:49 PM CDT) [facility] HIV 1/2 ab + p24 ag Nonreactive [...] Organization Address [facility] Co de Phone Number TOBY [facility] [place] [address] * RPR Blood (07/05/2025 12:49 PM CDT) [facility] RPR Nonreactive Nonreactive Blood 07/05/2025 12:4 9 PM CDT 07/05/2025 1:40 PM CDT Amanda Moctezuma MD LAB MICROBIOLOGY - GENERAL ORD ERABLES Final Result Performing Organization Address [facility] Co de Phone Number TOBY [facility] [place] [address] * (ABNORMAL) Vitamin B6 (07/05/2025 12:49 PM CDT) [facility] Pyridoxal phosphate (Vit B6) 4(L) 5 - 50 mcg/L [facility] ref Lab Comment: ADDITIONAL INFORMATION This test was developed and its performance characteristics determined by [facility] in a manner consistent with CLIA requirements. This test has not been cleared or approved by the U.S. Food and Drug Administration. Test Performed by: [facility] Laboratories - [facility] [address] [place] [address] Repair Department Supervisor: Dheeraj Dumont Ph.D.; CLIA# [id number] Blood 07/05/2025 12:4 9 PM CDT 07/05/2025 1:55 PM CDT us Amanda Moctezuma MD LAB BLOOD ORDERABLES Final Res ult TOBY [facility] Department [place] [address] [facility] Lab * Surgical pathology (04/16/2025 1:11 PM CDT) Tissue (Polyp(s), colon/colorectal, esophageal, gastric) 04/16/2025 1:11 PM CDT Narrative PATHOLOGY [facility] - 04/17/2025 6:53 PM CDT EPIC results best viewed via link to PDF [facility] Ellen Chawla Laboratory [place] [address] Note to Patients: This report may contain [...] Gender: F : 1975 (Age: 49) Address: [address] [place] [address] [place] [address] #: [id number] Taken:04/16/2025 Received:04/16/2025 Reported: 04/17/2025 Patient Type: [facility] Service: Gastro Location: Physician(s): Kenna Verma [...] Surgical Pathology and Flow Cytometry Departments at [facility] as part of an ongoing quality assurance assistant program and in compliance with federally mandated [...] Surgical Pathology and Flow Cytometry Departments of [facility]. It has not been cleared or approved by the U. S. Food and Drug Administration. IMAGES AND SCANNED DOCUMENTS, IF INCLUDED, ONLY VIEWABLE IN PDF VERSION OF REPORT us Kenna Verma MD PhD LAB PATHOLOGY ORDERABLES Final Result PATHOLOGY [facility] 3rd Floor [place], [place] [phone] * Colonoscopy (04/16/2025 12:48 PM CDT) Anatomical Region Laterality Modality Other Narrative Procedure Note Kenna Verma MD PhD - 04/16/2025 12:48 PM CDT GI ENDOSCOPY [facility] Patient Name: Farhad Ybarra Procedure Date: 04/16/2025 12:48 PM Date of : 1975 Admit Type: Outpatient Age: 49 Gender: Female Attending MD: Kenna Verma M.D. Room: [facility] ENDOSCOPY ROOM 8 Note Status: Finalized [...] The scope was passed under direct vision.The [id number] endoscope was introduced through the anus [...] 0 Note Initiated On: 04/16/2025 12:48 PM Kenna Verma MD PhD ENDOSCOPY PROC EDURES Final Result * POCT hCG, urine (04/16/2025 12:36 PM CDT) HCG, ur, POC Negative Negative Lot Number \[id number] QC Backgroud Clear Acceptable QC Control Line Acceptable Urine 04/16/2025 12:3 6 PM CDT Oleksandr Damian MD POINT OF CARE TEST ORDERABLES Fi nal Result * Screening Mammogram Bilateral W Jair (01/24/2025 2:19 PM CDT) Anatomical Region Laterality Modality Breast Bilateral Mammography Narrative 01/25/2025 12:49 PM CDT Mammogram Technique: Bilateral Digital Breast Tomosynthesis, Bilateral C-view 2D Screening mammogram. Views obtained: bilateral craniocaudal and bilateral mediolateral oblique. Computer Aided Detection was performed. Mammogram Findings: The present examination has been compared to prior imaging studies performed at [facility] on 02/05/2023 and 12/28/2023, and at [facility] on 06/26/2015, 09/09/2016, 09/13/2017, 12/26/2018 and 10/21/2020. [...] compared to prior imaging studies performed at [facility] on 02/05/2023 and 12/28/2023, and at [facility] at [facility] on 06/26/2015, 09/09/2016, 09/13/2017, 12/26/2018 and [...] HPV, reflex to Genotyping (12/17/2022 3:28 PM SKEIN YARN DYER HELPER) Thin prep (Pap test) 12/17/2022 3:28 PM SKEIN YARN DYER HELPER 12/20/2022 2:18 PM CDT Narrative PATHOLOGY [facility] - 12/26/2022 1:35 PM CDT EPIC results best viewed via link to PDF [address] [address] Tele: Sharon Uribe MD - Software Architect CYTOLOGY REPORT Note to Patients: This report [...] the details. Patient Name: FARHAD YBARRA Address: [address] [place] [address] [place] [address] Gender: F : 1975 (Age: 47) Service: Location: [facility] #: [id number] Patient Type: [facility] SPECIMEN Taken: 12/17/2022 Reported: 12/26/2022 Physician(s): YVETTE Pate FINAL DIAGNOSIS: Specimen Type: A. - ThinPrep Pap and HPV w/ reflex Genotyping: Statement of Specimen Adequacy: Source: Cervical/Endocervical - Satisfactory for interpretation - Endocervical/Transformation zone component absent or insufficient - Case screened using computer assisted imaging technology and manually re- screened by a telephonic nurse. General Categorization: - Negative for intraepithelial lesion or malignancy j/12/26/2022 13:35PRISCILLA Velazquez(ASCP), [place] Report Reviewed and Electronically Signed By PRISCILLA Velazquez(ASCP), [facility] SYSTEM[facility]Clerical Data Follow A; G0145 DIAGNOSIS COMMENT: Ancillary [...] recommended by your physician or nurse practitioner. us [address] PASSENGER FIRER LAB CYTOLOGY ORDERABLE S Final Result PATHOLOGY [facility] Laboratory Receiving [address] [place] [address] * (ABNORMAL) Serum Hepatitis C ab (06/08/2013 8:25 AM CDT) HCV ab REACTIVE( A) NON-REACT [facility] HISTORICAL RESULTS Hepatitis signal to cutoff ratio 1.66(H) <1.00 HISTORICAL RESULTS Comment: The patient's sample tests reactive with a low S/CO ratio: > or = 1.0 and <8.0. The CDC recommends supplemental testing. HCV RNA, Quantitative Real Time PCR (89961), which requires a fresh frozen sample be drawn and submitted, is suggested for this purpose. Serum 06/08/2013 8:25 AM CDT Narrative HISTORICAL RESULTS - 06/09/2013 5:00 AM CDT Test performed at [facility] [place] [address] [place] [address] Director: AXEL KC DO,MPH us Historical Provider LAB BLOOD ORDERABLES Kala swanson Result HISTORICAL RESULTS from Last 3 Months or Most Recently Relevant to [place] [address] [employer] [facility] [place] [address] [place] [address] [place] [address] [address] [address]NASA [place] [address] Advance Directives For more information, please contact: [phone] * Full Code (Latest Code Status on File) Date Activated Date Inactivated Comments 04/16/2025 12:24 PM 04/16/2025 6:06 PM Care Teams All Terrain Vehicle Racer Relationship Specialty Start Date End Date Prakash Velasquez MD PCP - General 05/27/09
--- OUTSIDE RECORDS SUMMARY | 2025-07-11 12:24 | XMS_ITS | Encounter Summary ---
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
--- OUTSIDE RECORDS SUMMARY | 2025-07-11 12:24 | XMS_ITS | Encounter Summary ---
Author Organization [facility] Address [address] [place] [address] Care Team Providers Care Casing Sewer Name Role Phone Prakash Velasquez MD Primary Care Provider [phone] Encounter Details Date Type Department Care Team (Late Contact Info) Description 07/10/2025 Orders Only [facility] Oncology and Hematology [address] [place] [address] Santosh Lody MD [address] [place] [phone] Social History Tobacco Use Types Packs/Day [...] 07/18/2025 4:35 PM CDT Telephone Check Up [facility] Oncology and Hematology [address] [place] [address] Santosh Loyd MD [address] [place] [address] 03/25/2026 10:30 AM CDT Office Visit [facility] Heart and Vascular - [address] [facility] [address] [address] [facility] [address] [place] [address] [place] [address] [facility] [address] [place] [address] documented as of this encounter Procedures Procedure Name Priority Date/Time Associated Diagnosis Comments HEREDITARY HEMOCHROMATOSIS DNA MUTATION ANALYSIS Routine 07/04/2025 1:36 PM CDT documented in this encounter Results * HEREDITARY HEMOCHROMATOSIS DNA MUTATION ANALYSIS (07/04/2025 1:36 PM CDT) Santosh Loyd MD CHEMISTRY ORDERABLES COM Final Result documented in this encounter Visit Diagnoses Not on filedocumented in this encounter Care Teams Casing Sewer Relationship Specialty Start Date End Date Prakash Velasquez MD [address] [place] [address] PCP - General Family Practice 07/21/19 documented as of this encounter
--- OUTSIDE RECORDS SUMMARY | 2025-07-11 12:25 | XMS_ITS | Clinical Summary ---
Author Organization [facility] Address [address] [facility] [place] [address] Care Team Providers Care Filler Shredder Helper Name Role Phone Unavailable Primary Care Provider Unavailabl e Source Comments [facility],non-owned Affiliates and Associated Physician Practices is amultiple site organization consisting of ambulatory clinics and hospital sitesin [place], [place], [place] and [place]. This disclosure is being madepursuant to the Care Everywhere program and may not contain all information available regarding this patient. 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
== END 2025-07-11 12:20 | disposition home or self-care (01) ==
PROVIDERS: PCP Family Medicine
DX: N92.6 Irregular menstruation, unspecified (principal)
CPT/HCPCS: 76830; 76856